=== PATIENT | female | born 1945 | race Caucasian/White ===

== ENCOUNTER → 2016-11-12 | Outpatient (CLI) | payer MEDICARE ==
--- NOTE | 2016-11-12 10:16 | XR ---
EXAMINATION TYPE: XR KUB DATE OF EXAM: 11/12/2016 9:54 AM CLINICAL HISTORY: Right-sided renal calculi. TECHNIQUE: 2 supine KUB images of the abdomen are obtained COMPARISON: Abdominal x-ray and CT abdomen and pelvis July 22, 2014 . FINDINGS: There is 8 mm oval calculus lower pole level right kidney slightly larger versus prior kaleigh dy. There are 4-6 additional small calculi scattered throughout the right kidney new from prior exam measuring up to 4 mm in size. There is no definite left-sided nephrolithiasis. There is overall nonobstructive bowel gas pattern. There is new extensive surgical change in the lowe r lumbar spine with posterior fusion hardware and metallic disc material. There is partially sacraliz ed right L5 segment with sclerosis at abnormal articulation with S1. Vascular calcification and phleb oliths are seen in the pelvis. IMPRESSION: Worsening right-sided nephrolithiasis.
== END | disposition home or self-care (01) ==
LOC: RADXRMAIN 09:31
PROVIDERS: ATTEND Urology
DX: N20.0 Calculus of kidney (principal)
CPT/HCPCS: 74000

== ENCOUNTER → 2017-11-07 | Outpatient (CLI) | payer MEDICARE ==
[2017-11-07 12:02] LABS: Basophils # (A) 0.1 k/uL (0-0.2); Basophils % (A) 1 %; Eosinophils # (A) 0.2 k/uL (0-0.7); Eosinophils % (A) 3 %; HCT 39.3 % (34.0-46.0); Lymphocytes # (A) 1.6 k/uL (1.0-4.8); Lymphocytes % (A) 18 %; MCH 30.4 pg (25.0-35.0); MCHC 33.1 g/dL (31.0-37.0); MCV 91.8 fL (80.0-100.0); Mean Platelet Volume 7.7; Monocytes # (A) 0.5 k/uL (0-1.0); Monocytes % (A) 6 %; Neutrophils % (A) 70 %; Platelet Count 171 k/uL (150-450); RBC 4.28 m/uL (3.80-5.40); RDW 14.6 % (11.5-15.5); WBC 8.5 k/uL (3.8-10.6)
[2017-11-07 12:22] LABS: Albumin 4.2 g/dL (3.5-5.0); Calcium 9.8 mg/dL (8.4-10.2); Potassium 4.6 mmol/L (3.5-5.1); Total Bilirubin 0.4 mg/dL (0.2-1.3); Total Protein 7.5 g/dL (6.3-8.2)
[2017-11-07 12:32] LABS: T4, Free (Free Thyroxine) 0.75 ng/dL (0.78-2.19)
[2017-11-08 00:29] LABS: Hemoglobin A1C 5.9 % (4.0-6.0)
== END | disposition home or self-care (01) ==
LOC: LABWHC1 11:42
PROVIDERS: ATTEND Internal Medicine Critical Care Medicine
DX: I10 Essential (primary) hypertension (principal); J44.9 Chronic obstructive pulmonary disease, unspecified; F32.9 Major depressive disorder, single episode, unspecified; E78.5 Hyperlipidemia, unspecified
CPT/HCPCS: 36415; 80053; 80061; 82306; 83036; 84439; 84443; 85025

== ENCOUNTER → 2018-05-16 | Outpatient (CLI) | payer MEDICARE | END | disposition home or self-care (01) | LOC: LABWHC1 12:26 | PROVIDERS: ATTEND Orthopaedic Surgery Orthopaedic Surgery of the Spine | DX: N28.9 Disorder of kidney and ureter, unspecified (principal) | CPT/HCPCS: 36415; 82565; 84520 ==

== ENCOUNTER → 2018-10-24 | Outpatient (CLI) | payer MEDICARE ==
[2018-10-24 13:23] LABS: Basophils # (A) 0.1 k/uL (0-0.2); Basophils % (A) 1 %; Eosinophils # (A) 0.3 k/uL (0-0.7); Eosinophils % (A) 3 %; HCT 42.1 % (34.0-46.0); HGB 13.3 gm/dL (11.4-16.0); Lymphocytes # (A) 0.8 k/uL (1.0-4.8); Lymphocytes % (A) 11 %; MCH 29.5 pg (25.0-35.0); MCHC 31.5 g/dL (31.0-37.0); MCV 93.7 fL (80.0-100.0); Mean Platelet Volume 6.6; Monocytes # (A) 0.4 k/uL (0-1.0); Monocytes % (A) 5 %; Neutrophils # (A) 5.9 k/uL (1.3-7.7); Neutrophils % (A) 78 %; Platelet Count 157 k/uL (150-450); RBC 4.49 m/uL (3.80-5.40); RDW 14.4 % (11.5-15.5); WBC 7.5 k/uL (3.8-10.6)
[2018-10-24 19:40] LABS: Iron Saturation 20.54 (12.00-45.00)
[2018-10-24 19:46] LABS: Albumin 4.1 g/dL (3.80-4.90); Albumin/Globulin Ratio 1.58 (1.60-3.17); Anion Gap 6.6 mmol/L (4.00-12.00); Calcium 9.5 mg/dL (8.7-10.3); Carbon Dioxide 30.4 mmol/L (21.6-31.8); Globulin 2.6 g/dL (1.6-3.3); LDL Cholesterol,Calculated 163.4 mg/dL (0.0-131.0); Potassium 4.4 mmol/L (3.5-5.5); Total Bilirubin 0.5 mg/dL (0.2-1.2); Total Protein 6.7 g/dL (6.2-8.2); VLDL Calculation 67.6 mg/dL (5.00-40.00)
[2018-10-24 19:49] LABS: Folate, Serum 6.8 ng/mL; Vitamin D 25 Hydroxy 28.2 ng/mL (30.0-100.0)
== END ==
LOC: LABWHC1 12:24
PROVIDERS: ATTEND Nurse Practitioner Adult Health
DX: I10 Essential (primary) hypertension (principal); J44.9 Chronic obstructive pulmonary disease, unspecified; K21.9 Gastro-esophageal reflux disease without esophagitis; M10.00 Idiopathic gout, unspecified site; G99.0 Autonomic neuropathy in diseases classified elsewhere; E78.5 Hyperlipidemia, unspecified; R10.11 Right upper quadrant pain; R11.0 Nausea
CPT/HCPCS: 36415; 80053; 80061; 82150; 82306; 82607; 82746; 83540; 83550; 83690; 84443; 85025

== ENCOUNTER → 2018-10-24 | Outpatient (CLI) | payer MEDICARE ==
--- NOTE | 2018-10-24 17:30 | US ---
EXAMINATION TYPE: US abdomen complete DATE OF EXAM: 10/24/2018 COMPARISON: CT 07/22/2014 CLINICAL HISTORY: R10.11 Right upper quadrant pain, R11 nausea. Difficult and limited exam due to pat ient body habitus and overlying bowel gas EXAM MEASUREMENTS: Liver Length: 17.4 cm Gallbladder Wall: 0.2 cm CBD: 0.4 cm Spleen: 15.4 cm Right Kidney: 9.0 x 4.7 x 5.1 cm Left Kidney: 12.5 x 5.2 x 4.3 cm Pancreas: Obscured by overlying bowel gas Liver: Coarse, heterogeneous echotexture. Enlarged Gallbladder: Stone visualized measuring 1.4 cm Evidence for sonographic Blake's sign: No CBD: wnl as visualized Spleen: Enlarged Right Kidney: Measuring smaller than left, cortex appears thin. Echogenic foci visualized measuring 0.8 cm, cystic area visualized lower pole measuring 5.0 x 4.7 x 4.2 cm Left Kidney: No hydronephrosis. Nodular contour, multiple tiny cystic areas visualized, largest masoud uring 0.8 x 0.9 x 1.3 cm Upper IVC: wnl as visualized Abd Aorta: Atherosclerotic changes visualized IMPRESSION: 1. Mild fatty infiltration of liver. 2. Hepatomegaly. 3. Cholelithiasis. 4. Thinning of the right renal cortex compatible some atrophy. 5. Nonobstructing inferior pole right renal stones. 6. Right renal cyst. Tiny left renal cysts are also present.
== END ==
LOC: RADUSWWP 12:20
PROVIDERS: ATTEND Internal Medicine
DX: K76.0 Fatty (change of) liver, not elsewhere classified (principal); R16.0 Hepatomegaly, not elsewhere classified; K80.20 Calculus of gallbladder without cholecystitis without obstruction; N20.0 Calculus of kidney; N28.1 Cyst of kidney, acquired
CPT/HCPCS: 76700

== ENCOUNTER → 2018-11-21 | Day surgery (SDC) | payer MEDICARE ==
[2018-11-17 16:10] VITALS: BMI 39.4
[~2018-11-21] MED LIST: BUPIVACAINE-EPI 0.5%-1:200,000 10 ML VIAL SQ ONE; DEXAMETHASONE SOD PHOS (MDV) 100 MG/10 ML VIAL IVP ONE; DEXAMETHASONE SOD PHOSPHATE 10 MG/ML 1 ML VIAL IV ONE; GLYCOPYRROLATE 0.2 MG/ML 2 ML VIAL ONE; HEPARIN SODIUM,PORCINE 5,000 UNIT/ML 1 ML VIAL SQ ONE; HYDROcodone/APAP 7.5-325MG 1 EACH TAB PO ONE; HYDROmorphone 0.5 MG/0.5 ML SYRINGE IVP PRN; LACTATED RINGERS 1,000 ML IV ONE; LACTATED RINGERS 1,000 ML IV SCH; LIDOCAINE 1% 20 ML VIAL (10MG/ML) FOR IV START INTRADERMA PRN; LIDOCAINE 1% INJ 10MG/ML (20 ML MDV) ONE; MIDAZOLAM 2 MG/2 ML VIAL ONE; NEOSTIGMINE 1 MG/ML 10 ML VIAL ONE; ONDANSETRON 4 MG/2 ML VIAL IVP ONE; PHENYLEPHRINE-0.9% NACL SYG 1 MG/10 ML SYRINGE ONE; PROPOFOL 10 MG/ML 20 ML VIAL IV ONE; ROCURONIUM BROMIDE 10 MG/ML 10 ML VIAL IV ONE; SUCCINYLCHOLINE CHLORIDE 100 MG/5 ML SYR IV ONE; ceFAZolin IN SWFI 2 GM/20 ML SYRINGE IVP ONE; fentaNYL (PF) 50 MCG/ML 2 ML AMP ONE
--- NOTE | 2018-11-21 08:19 | P.GSHP ---
History of Present Illness H&P Date: 11/21/18 Chief Complaint: Right upper quadrant pain This a 73-year-old female who had complaints of right quadrant pain. Her recent ultrasound shows evidence of cholelithiasis. She presents today for laparoscopic cholecystectomy. Past Medical History Past Medical History: Asthma, COPD, GERD/Reflux, Hyperlipidemia, Hypertension, Osteoarthritis (OA) Additional Past Medical History / Comment(s): hx of kidney stone, GOUT, BRONCHITIS, KIDNEY STONES History of Any Multi-Drug Resistant Organisms: None Reported Past Surgical History: Appendectomy, Back Surgery, Section, Orthopedic Surgery Additional Past Surgical History / Comment(s): LITHOTRIPSY, LEFT ANKLE PLATE SCREW, , EPIDURAL PAIN SHOTS, 6-8-16 laminectomy, CATARACT -BILATERAL WITH LENS IMPLANT, LASER TREATMENT OF EYE Past Anesthesia/Blood Transfusion Reactions: Motion Sickness, Postoperative Nausea & Vomiting (PONV) Smoking Status: Former smoker - Past Family History Mother Family Medical History: Myocardial Infarction ([place]) Father Family Medical History: CVA/TIA Sister(s) Additional Family Medical History / Comment(s): "ARTERIES DISSECTED" Medications and Allergies Home Medications Medication Instructions Recorded Confirmed Type Albuterol Inhaler [Ventolin 1 - 2 puff INHALATION RT-Q6H PRN 07/22/14 11/17/18 History Inhaler] Allopurinol [Zyloprim] 100 mg PO DAILY 07/22/14 11/17/18 History Aspirin 81 mg PO DAILY 07/22/14 11/17/18 History Hydrochlorothiazide [Hydrodiuril] 12.5 mg PO DAILY 07/22/14 11/17/18 History Lisinopril [Prinivil] 10 mg PO HS 07/22/14 11/17/18 History Montelukast [Singulair] 10 mg PO HS 07/22/14 11/17/18 History Ranitidine HCl [Zantac] 150 mg PO HS 07/22/14 11/17/18 History Sertraline [Zoloft] 50 mg PO DAILY 07/22/14 11/17/18 History Albuterol Nebulized [Ventolin 2.5 mg INHALATION RT-Q6H PRN 01/19/16 11/17/18 History Nebulized] Atenolol [Tenormin] 50 mg PO QAM 01/19/16 11/17/18 History Allergies Allergy/AdvReac Type Severity Reaction Status Date / Time Sulfa (Sulfonamide Allergy Rash/Hives Verified 11/17/18 15:35 Antibiotics) Surgical - Exam Vital Signs Temp Pulse Resp BP Pulse Ox 97.6 F 77 18 106/66 97 11/21/18 07:10 11/21/18 07:10 11/21/18 07:10 11/21/18 07:10 11/21/18 07:10 - General well developed, well nourished, no distress - Eyes PERRL - ENT normal pinna - Neck no masses - Respiratory normal expansion - Cardiovascular Rhythm: regular - Abdomen Abdomen: soft, non tender Assessment and Plan Assessment: Right quadrant pain Cholelithiasis We'll perform laparoscopic cholecystectomy.
[2018-11-21 09:18] VITALS: TEMP 96.8
--- NOTE | 2018-11-21 09:29 | P.OP ---
Date of Procedure: 11/21/18 Preoperative Diagnosis: Cholecystitis Cholelithiasis Postoperative Diagnosis: Cholecystitis Cholelithiasis Procedure(s) Performed: Laparoscopic cholecystectomy Anesthesia: KOLBY Surgeon: Marcos Lr Estimated Blood Loss (ml): 5 Pathology: other (Gallbladder) Condition: stable Disposition: PACU Description of Procedure: The patient was placed on the operating table. The patient received a general endotracheal tube anesthesia. The patients abdomen was prepped and draped in the usual sterile fashion. Through an infraumbilical stab incision, the fascia of the anterior abdominal wall was grasped with a pair of Kochers and then the Veress needle was placed in the peritoneal cavity. Position of the Veress needle was confirmed with positive drop test. The abdomen was then insufflated. After adequate insufflation, the 10 mm trocar was placed in the peritoneal cavity. Following this the laparoscope was placed in the peritoneal cavity. The patient was placed in the head-up, right side up position and then a 5 mm trocar was placed in the right lateral and right subcostal position under direct visualization. A 8 mm trocar was placed in the epigastric position. The gallbladder was grasped in the fundus and infundibulum. Traction on the gallbladder was placed in the lateral and the cephalad positions. The triangle of Calot was visualized.. The cystic duct was bluntly dissected until the union of the cystic duct and common bile duct wa s seen. The cystic duct was then divided and sealed with the Harmonic scissors. A PDS Endoloop was then placed throughout the cystic duct stump. The cystic artery divided and sealed with the Harmonic scissors. The gallbladder was then removed from the liver bed using Harmonic scissors. The gallbladder was then extracted through the epigastric port site. Operative field was checked for any bleeding spots and Harmonic scissors was used to coagulate the liver bed. The abdomen was irrigated. The trocars were removed. The skin was closed using interrupted 3-0 Vicryl suture. Dermabond dressing were applied. The patient tolerated the procedure well.
[2018-11-21 10:01] VITALS: RESP 16
[2018-11-21 10:08] VITALS: BP 106/68; PULSE 83
== END | disposition home or self-care (01) ==
LOC: OR 06:28
PROVIDERS: ATTEND Surgery
DX: K80.10 Calculus of gallbladder with chronic cholecystitis without obstruction (principal); I10 Essential (primary) hypertension; E78.5 Hyperlipidemia, unspecified; J45.909 Unspecified asthma, uncomplicated; F17.200 Nicotine dependence, unspecified, uncomplicated; M19.90 Unspecified osteoarthritis, unspecified site; K21.9 Gastro-esophageal reflux disease without esophagitis; M10.9 Gout, unspecified; Z87.442 Personal history of urinary calculi; F32.9 Major depressive disorder, single episode, unspecified; Z79.82 Long term (current) use of aspirin; Z79.899 Other long term (current) drug therapy; Z88.2 Allergy status to sulfonamides
CPT/HCPCS: 88304; 47562; J2250; J1644; J2710; J2405; J2001; J3010; J1100; J2370; J0330; J2704; J0690

== ENCOUNTER 2019-02-16 11:23 | Observation (INO) | payer MEDICARE ==
[~2019-02-16 11:23] MED LIST changes: +ATROPINE SULFATE 0.1 MG/ML 10ML SYRINGE ONE; -BUPIVACAINE-EPI 0.5%-1:200,000 10 ML VIAL SQ ONE; -DEXAMETHASONE SOD PHOS (MDV) 100 MG/10 ML VIAL IVP ONE; -DEXAMETHASONE SOD PHOSPHATE 10 MG/ML 1 ML VIAL IV ONE; -GLYCOPYRROLATE 0.2 MG/ML 2 ML VIAL ONE; -HEPARIN SODIUM,PORCINE 5,000 UNIT/ML 1 ML VIAL SQ ONE; -HYDROcodone/APAP 7.5-325MG 1 EACH TAB PO ONE; -HYDROmorphone 0.5 MG/0.5 ML SYRINGE IVP PRN; -LACTATED RINGERS 1,000 ML IV ONE; -LACTATED RINGERS 1,000 ML IV SCH; -LIDOCAINE 1% 20 ML VIAL (10MG/ML) FOR IV START INTRADERMA PRN; -LIDOCAINE 1% INJ 10MG/ML (20 ML MDV) ONE; +METOPROLOL TARTRATE 5 MG/5 ML VIAL IVP ONE; -MIDAZOLAM 2 MG/2 ML VIAL ONE; -NEOSTIGMINE 1 MG/ML 10 ML VIAL ONE; -ONDANSETRON 4 MG/2 ML VIAL IVP ONE; -PHENYLEPHRINE-0.9% NACL SYG 1 MG/10 ML SYRINGE ONE; -PROPOFOL 10 MG/ML 20 ML VIAL IV ONE; -ROCURONIUM BROMIDE 10 MG/ML 10 ML VIAL IV ONE; -SUCCINYLCHOLINE CHLORIDE 100 MG/5 ML SYR IV ONE; -ceFAZolin IN SWFI 2 GM/20 ML SYRINGE IVP ONE; -fentaNYL (PF) 50 MCG/ML 2 ML AMP ONE
--- NOTE | 2019-02-16 11:51 | ED ---
Chest Pain HPI - General Chief Complaint: Chest Pain Stated Complaint: CHEST PAIN, SENT BY DR Time Seen by Provider: 02/16/19 11:29 Source: patient, RN notes reviewed, old records reviewed Mode of arrival: wheelchair Limitations: no limitations - History of Present Illness Initial Comments: This is a 73-year-old female the ER for evaluation. Patient comes in for evaluation chest pain history of high blood pressure high cholesterol and COPD asthma. Patient has no recent cardiac evaluation. No recent travel history or sick contacts. No history of PE or DVT. No fevers cough or congestion MD Complaint: chest pain -: week(s) Pain Location: substernal, left chest Pain Radiation: none Severity: mild Severity scale (1-10): 2 Quality: aching Consistency: constant, intermittent Improves With: nothing Worsens With: nothing Anginal Symptoms: dyspnea Treatments Prior to Arrival: none - Related Data Home Medications Medication Instructions Recorded Confirmed Allopurinol [Zyloprim] 100 mg PO DAILY 07/22/14 02/16/19 Hydrochlorothiazide [Hydrodiuril] 12.5 mg PO DAILY 07/22/14 02/16/19 Lisinopril [Prinivil] 10 mg PO HS 07/22/14 02/16/19 Montelukast [Singulair] 10 mg PO HS 07/22/14 02/16/19 Ranitidine HCl [Zantac] 150 mg PO BID 07/22/14 02/16/19 Sertraline [Zoloft] 50 mg PO DAILY 07/22/14 02/16/19 Atenolol [Tenormin] 25 mg PO DAILY 02/16/19 02/16/19 Cholecalciferol [Vitamin D3 (25 1,000 unit PO DAILY 02/16/19 02/16/19 Mcg = 1000 Iu)] Gabapentin [Neurontin] 300 mg PO BID 02/16/19 02/16/19 Omeprazole 20 mg PO QAM 02/16/19 02/16/19 Allergies Allergy/AdvReac Type Severity Reaction Status Date / Time Sulfa (Sulfonamide Allergy Rash/Hives Verified 02/16/19 11:45 Antibiotics) Review of Systems ROS Statement: Those systems with pertinent positive or pertinent negative responses have been documented in the HPI. ROS Other: All systems not noted in ROS Statement are negative. EKG Findings - EKG Comments: EKG Findings:: EKG shows sinus rhythm rate of 64, SC 196, QRS 74, QTc 462 Past Medical History Past Medical History: Asthma, COPD, GERD/Reflux, Hyperlipidemia, Hypertension, Osteoarthritis (OA) Additional Past Medical History / Comment(s): hx of kidney stone, GOUT, BRONCHITIS, KIDNEY STONES History of Any Multi-Drug Resistant Organisms: None Reported Past Surgical History: Appendectomy, Back Surgery, Section, Orthopedic Surgery Additional Past Surgical History / Comment(s): LITHOTRIPSY, LEFT ANKLE PLATE SCREW, , EPIDURAL PAIN SHOTS, 6-8-16 laminectomy, CATARACT -BILATERAL WITH LENS IMPLANT, LASER TREATMENT OF EYE Past Anesthesia/Blood Transfusion Reactions: Motion Sickness, Postoperative Nausea & Vomiting (PONV) Past Psychological History: Depression Smoking Status: Former smoker - Past Family History Mother Family Medical History: Myocardial Infarction ([place]) Father Family Medical History: CVA/TIA Sister(s) Additional Family Medical History / Comment(s): "ARTERIES DISSECTED" General Exam Limitations: no limitations General appearance: alert, in no apparent distress Head exam: Present: atraumatic, normocephalic, normal inspection Eye exam: Present: normal appearance, PERRL, EOMI. Absent: scleral icterus, conjunctival injection, periorbital swelling ENT exam: Present: normal exam, mucous membranes moist Neck exam: Present: normal inspection. Absent: tenderness, meningismus, lym phadenopathy Respiratory exam: Present: normal lung sounds bilaterally. Absent: respiratory distress, wheezes, rales, rhonchi, stridor Cardiovascular Exam: Present: regular rate, normal rhythm, normal heart sounds. Absent: systolic murmur, diastolic murmur, rubs, gallop, clicks GI/Abdominal exam: Present: soft, normal bowel sounds. Absent: distended, tenderness, guarding, rebound, rigid Extremities exam: Present: normal inspection, full ROM, normal capillary refill. Absent: tenderness, pedal edema, joint swelling, calf tenderness Back exam: Present: normal inspection Neurological exam: Present: alert, oriented X3, CN II-XII intact Psychiatric exam: Present: normal affect, normal mood Skin exam: Present: warm, dry, intact, normal color. Absent: rash Course Vital Signs 02/16/19 02/16/19 02/16/19 11:26 11:41 12:00 Temperature 98.2 F Pulse Rate 64 61 Respiratory 16 18 18 Rate Blood Pressure 119/66 118/78 O2 Sat by Pulse 98 94 L 94 L Oximetry 02/16/19 02/16/19 12:30 13:00 Temperature Pulse Rate 55 L Respiratory 18 15 Rate Blood Pressure 116/73 118/70 O2 Sat by Pulse 92 L 95 Oximetry - Reevaluation(s) Reevaluation #1: 02/16/19 13:48 Medical record is reviewed Reevaluation #2: 02/16/19 13:48 Patient's chest pain remains persistent Chest Pain MDM - MDM 73 female the ER for evaluation comes in with chest pain today. We do patient started on heparin will admit for chest cardiac observation, she did have VQ scan secondary to elevated d-dimer. Patient will be admitted for cardiology observation Critical Care Time Critical Care Time: Yes Total Critical Care Time: 31 Disposition Clinical Impression: Atypical chest pain, Chest pain Disposition: ADMITTED IP TO THIS HOSP Condition: Fair Is patient prescribed a controlled substance at d/c from ED?: No Referrals: Veronica Jason MD [Primary Care Provider] - 1-2 days
[2019-02-16 11:55] LABS: Basophils # (A) 0.1 k/uL (0-0.2); Basophils % (A) 2 %; Eosinophils # (A) 0.5 k/uL (0-0.7); Eosinophils % (A) 6 %; HCT 41.6 % (34.0-46.0); HGB 13.6 gm/dL (11.4-16.0); Lymphocytes # (A) 1.1 k/uL (1.0-4.8); Lymphocytes % (A) 12 %; MCH 29.4 pg (25.0-35.0); MCHC 32.7 g/dL (31.0-37.0); Mean Platelet Volume 7.7; Monocytes # (A) 0.6 k/uL (0-1.0); Monocytes % (A) 6 %; Neutrophils # (A) 6.6 k/uL (1.3-7.7); Neutrophils % (A) 73 %; Platelet Count 199 k/uL (150-450); RBC 4.62 m/uL (3.80-5.40); RDW 15.4 % (11.5-15.5)
--- NOTE | 2019-02-16 12:04 | XR ---
EXAMINATION TYPE: XR chest 2V DATE OF EXAM: 02/16/2019 COMPARISON: 02/03/2016 HISTORY: Chest pain TECHNIQUE: Frontal and lateral views of the chest are obtained. FINDINGS: There is no focal air space opacity, pleural effusion, or pneumothorax seen. The cardiac silhouette size is upper limits of normal. The osseous structures are intact. Mild multilevel degen erative changes of the spine are seen. IMPRESSION: No acute cardiopulmonary process.
[2019-02-16 12:10] LABS: Albumin 4.3 g/dL (3.5-5.0); Calcium 9.8 mg/dL (8.4-10.2); Potassium 4.7 mmol/L (3.5-5.1); Total Bilirubin 0.5 mg/dL (0.2-1.3); Total Protein 7.6 g/dL (6.3-8.2)
[2019-02-16 12:11] LABS: INR 0.9 (<1.2); Partial Thromboplastin Time 24.1 sec (22.0-30.0); Prothrombin Time 9.5 sec (9.0-12.0)
[2019-02-16 12:19] LABS: D-Dimer 0.98 mg/L FEU (<0.60)
[2019-02-16] MEDS ORDERED: HEPARIN SODIUM,PORCINE 5,000 UNIT/ML 1 ML VIAL IV PRN (13:44)
[2019-02-16] MEDS ORDERED: HEPARIN SODIUM,PORCINE 5,000 UNIT/ML 1 ML VIAL IV ONE (13:44)
[2019-02-16] MEDS ORDERED: NITROGLYCERIN SL TABS 0.4 MG TAB SUBLINGUAL PRN (13:44)
[2019-02-16] MEDS ORDERED: ASPIRIN 81 MG PO STA (13:44)
[2019-02-16] MEDS ORDERED: HEPARIN SOD,PORK IN 0.45% NACL 25,000 UNIT in 0.45% NACL 1 250ML.BAG IV SCH (13:45)
[2019-02-16] MEDS: SODIUM CHLORIDE 0.9% 1,000 ML IV SCH ×2 (14:31→20:32)
--- NOTE | 2019-02-16 14:32 | NM ---
EXAMINATION TYPE: NM pul vent and perfuse DATE OF EXAM: 02/16/2019 COMPARISON: Chest x-ray of 02/16/2019 HISTORY: Chest pain TECHNIQUE: Utilizing inhalation of 41 mCi Tc 99m DTPA aerosol and intravenous injection of 5.1 mCi o f Tc 99m MAA, ventilation and perfusion images are acquired post injection in multiple projections. FINDINGS: Slight right hemidiaphragm is seen on the chest x-ray corresponding to right diaphragm elevation the current examination. The heart appears mildly enlarged on this examination. Nonsegmental ventilation defects are seen within the peripheral right upper lobe and right lower lobe in addition to the left lung apex. Normal radiotracer distribution is noted in the remainder of the lungs. There is no eviden ce of mismatched defects. IMPRESSION: Low probability for pulmonary embolus. Nonsegmental ventilation defects suggests underlying airway di sease.
[2019-02-16 14:49] VITALS: BMI 37.2
[2019-02-16] MEDS: GABAPENTIN 300 MG CAP PO SCH (20:31)
[2019-02-16] MEDS: FAMOTIDINE 20 MG TAB PO SCH (20:31)
[2019-02-16] MEDS: METOPROLOL TARTRATE 25 MG TAB PO SCH (20:31)
[2019-02-16] MEDS ORDERED: MONTELUKAST 10 MG TAB PO SCH (21:00)
[2019-02-16] MEDS ORDERED: LISINOPRIL 10 MG TAB PO SCH (21:00)
[2019-02-17 04:26] LABS: Mean Platelet Volume 6.8; Platelet Count 136 k/uL (150-450)
[2019-02-17 04:47] LABS: Cholesterol 212 mg/dL (<200); HDL Cholesterol 27 mg/dL (40-60); LDL Cholesterol,Calculated 127 mg/dL (0-99); Triglycerides 289 mg/dL (<150)
[2019-02-17] MEDS ORDERED: PANTOPRAZOLE 40 MG TABLET PO SCH (07:30)
[2019-02-17] MEDS ORDERED: ASPIRIN 325 MG TAB PO SCH (09:00)
[2019-02-17] MEDS ORDERED: SERTRALINE 50 MG TAB PO SCH (09:00)
[2019-02-17] MEDS ORDERED: EZETIMIBE 10 MG TAB PO SCH (09:00)
[2019-02-17] MEDS ORDERED: ALLOPURINOL 100 MG TAB PO SCH (09:00)
[2019-02-17] MEDS ORDERED: CHOLECALCIFEROL 1,000 UNIT TAB PO SCH (09:00)
[2019-02-17] MEDS ORDERED: HYDROCHLOROTHIAZIDE 12.5 MG CAP PO SCH (09:00)
[2019-02-17] MEDS ORDERED: DOBUTamine DRIP for NUC MED 500 MG in DEXTROSE/WATER 1 250ML.BAG IV ONE (09:48)
--- NOTE | 2019-02-17 10:11 | P.CRDCN ---
History of Present Illness History of present illness: This is a pleasant 73-year-old female past medical history significant for hypertension, dyslipidemia, COPD, gastroesophageal reflux disease, chronic back pain, asthma, chronic kidney disease, kidney stones, former nicotine dependence and daily marijuana use. She denies history of coronary artery disease and does not follow with a lift builder whole for any reason. We have been asked to see her in consultation secondary to chest discomfort. She states for the previous 2 weeks she has noticed a discomfort in the left precordial and left shoulder region. This is described as a achy sensation that lasts for less than 1 minute with no specific aggravating or alleviating factor. Happens approximately 10 times a day and is always at rest. It is not associated with deep inspiration, cough or movement of her arm and torso. There is no radiation to the arm, back, neck or jaw. She denies any associated shortness of breath, dizziness, nausea, vomiting, palpitations or diaphoresis. She states in August she did suffer a fall landing on left side of her body and has been struggling with left arm and left hip discomfort since that time. EKG on arrival reveals sinus mechanism with no acute ST or T wave abnormalities noted. Chest x-ray is negative for an acute cardiopulmonary process. VQ scan shows low probability for PE with nonsegmental ventilation defects suggesting underlying airway disease. Laboratory data reviewed, cardiac enzymes negative 3, LDL 127, HDL 27, tr iglycerides 289 and total cholesterol 212, WBC 9.0, hemoglobin 13.6, platelets 136, d-dimer 0.98, sodium 141, potassium 4.7, creatinine 1.6 with a GFR of 32, magnesium 2.0, proBNP 151. Current cardiac medications include atenolol 25 mg daily, hydrochlorothiazide 12.5 mg daily and lisinopril 10 mg daily. She states she has tried multiple different types of statins in the past now cause significant muscle aches. At the time of my exam: CONSTITUTIONAL: Denies fever. Denies chills. EYES: Denies blurred vision. Denies vision changes. Denies eye pain. EARS, NOSE, MOUTH & THROAT: Denies headache. Denies sore throat. Denies ear pain. CARDIOVASCULAR: Denies chest pain. Denies shortness of breath. Denies orthopnea. Denies PND. Denies palpitations. RESPIRATORY: Denies cough. GASTROINTESTINAL: Denies abdominal pain. Denies diarrhea. Denies constipation. Denies nausea. Denies vomiting. MUSCULOSKELETAL: Denies myalgias. INTEGUMENTARY: Denies pruitis. Denies rash. NEUROLOGIC: Denies numbness. Denies tingling. Denies weakness. PSYCHIATRIC: Denies anxiety. Denies depression. ENDOCRINE: Denies fatigue. Denies weight change. Denies polydipsia. Denies polyurina. GENITOURINARY: Denies burning, hematuria or urgency with micturation. HEMATOLOGIC: Denies history of anemia. Denies bleeding. Blood pressure 145/78 heart rate 65 afebrile maintaining oxygen saturation on room air GENERAL: This is a 73-year-old female in no apparent distress at the time of my examination. HEENT: Head is atraumatic, normocephalic. Pupils are equal, round. Sclerae anicteric. Conjunctivae are clear. Mucous membranes of the mouth are moist. Neck is supple. There is no jugular venous distention. No carotid bruit is heard. LUNGS: Clear to auscultation no wheezes, rales or rhonchi. No chest wall tenderness is noted on palpation or with deep breathing. HEART: Regular rate and rhythm without murmurs, rubs or gallops. S1 and S2 heard. ABDOMEN: Soft, nontender. Bowel sounds are heard. No organomegaly noted. EXTREMITIES: No evidence of peripheral edema and no calf tenderness noted. VASCULAR: Radial and dorsalis pedis pulses palpated, no evidence of clubbing. NEUROLOGIC: Patient is awake, alert and oriented x3. ASSESSMENT Chest pain, atypical for angina. An acute coronary event has been ruled out. Hypertension Dyslipidemia, uncontrolled. Intolerant to statins. Hypertriglyceridemia COPD Chronic kidney disease Former nicotine dependence Daily marijuana use Chronic back pain Obesity, BMI 37 PLAN An acute coronary event has been ruled out. Discontinue heparin infusion. Obtain 2-D echocardiogram and Doppler study to assess cardiac structure and function. Perform dobutamine stress echocardiogram to assess for stress induced ischemia. Initiate on zetia 10 mg daily and fenofibrate 54 mg for cholesterol control. If stress test and echo are normal she is stable for discharge from a cardiac pe rspective. Follow up with Dr. Greenberg in the office in 2 weeks. Nurse Practitioner note has been reviewed, I agree with a documented findings and plan of care. Patient was seen and examined. Past Medical History Past Medical History: Asthma, COPD, GERD/Reflux, Hyperlipidemia, Hypertension, Osteoarthritis (OA) Additional Past Medical History / Comment(s): Kidney stones and currently has some in r kidney, bronchitis, gout bilateral feet, "alittle arthritis here and there." History of Any Multi-Drug Resistant Organisms: None Reported Past Surgical History: Appendectomy, Back Surgery, Section, Cholecystectomy, Orthopedic Surgery Additional Past Surgical History / Comment(s): L/R LITHOTRIPSIES, LEFT ANKLE PLATE SCREW, LUMBAR EPIDURAL PAIN INJECTIONS, 6-8-16 laminectomy, CATARACT - BILATERAL WITH LENS IMPLANT, LASER TREATMENT OF R EYE D/T "FILM" Past Anesthesia/Blood Transfusion Reactions: Motion Sickness, Postoperative Nausea & Vomiting (PONV) Past Psychological History: Depression Additional Psychological History / Comment(s): Pt resides with her spouse. She is independent. Smoking Status: Former smoker Past Alcohol Use History: Rare Additional Past Alcohol Use History / Comment(s): STARTED SMOKING AT AGE 20 QUIT SMOKING 2006, SMOKED 1 PPD Past Drug Use History: Marijuana Additional Drug Use History / Comment(s): DAILY USE OF MARIJUANA - 1 joint a day for pain control - Past Family History Mother Family Medical History: Myocardial Infarction ([place]) Additional Family Medical History / Comment(s): Mother of a [place] at the age of 75yrs. Father Family Medical History: CVA/TIA Additional Family Medical History / Comment(s): Father of a CVA at the age of 82 yrs. Sister(s) Family Medical History: Vascular Disorder Additional Family Medical History / Comment(s): Sister from an aortic dissection at the age of 56yrs. Medications and Allergies Home Medications Medication Instructions Recorded Confirmed Type Allopurinol [Zyloprim] 100 mg PO DAILY 07/22/14 02/16/19 History Hydrochlorothiazide [Hydrodiuril] 12.5 mg PO DAILY 07/22/14 02/16/19 History Lisinopril [Prinivil] 10 mg PO HS 07/22/14 02/16/19 History Montelukast [Singulair] 10 mg PO HS 07/22/14 02/16/19 History Ranitidine HCl [Zantac] 150 mg PO BID 07/22/14 02/16/19 History Sertraline [Zoloft] 50 mg PO DAILY 07/22/14 02/16/19 History Atenolol [Tenormin] 25 mg PO DAILY 02/16/19 02/16/19 History Cholecalciferol [Vitamin D3 (25 1,000 unit PO DAILY 02/16/19 02/16/19 History Mcg = 1000 Iu)] Gabapentin [Neurontin] 300 mg PO BID 02/16/19 02/16/19 History Omeprazole 20 mg PO QAM 02/16/19 02/16/19 History Allergies Allergy/AdvReac Type Severity Reaction Status Date / Time Sulfa (Sulfonamide Allergy Rash/Hives Verified 02/16/19 11:45 Antibiotics) Physical Exam Vitals: Vital Signs Temp Pulse Pulse Resp BP BP Pulse Ox 02/17/19 08:00 97.4 F L 65 18 130/81 98 02/17/19 04:00 98.1 F 65 16 145/78 98 02/16/19 23:45 59 L 18 02/16/19 23:12 98.0 F 59 L 18 124/75 96 02/16/19 20:17 98.1 F 52 L 16 122/67 95 02/16/19 20:00 52 L 16 02/16/19 19:00 56 L 20 109/59 94 L 02/16/19 18:05 67 18 109/59 97 02/16/19 18:00 64 19 123/86 94 L 02/16/19 17:00 60 123/67 95 02/16/19 16:00 59 L 146/72 95 02/16/19 15:30 58 L 13 144/91 93 L 02/16/19 15:00 59 L 7 L 181/96 93 L 02/16/19 13:30 112/71 02/16/19 13:00 55 L 15 118/70 95 02/16/19 12:30 18 116/73 92 L 02/16/19 12:00 18 118/78 94 L 02/16/19 11:41 61 18 94 L 02/16/19 11:26 98.2 F 64 16 119/66 98 Intake and Output 02/16/19 02/17/19 02/17/19 22:59 06:59 14:59 Intake Total 166.833 600 Balance 166.833 600 Intake: Intake, IV Titration 166.833 600 Amount Heparin Sod,Pork in 0.45% 66.833 NaCl 25,000 unit In 0.45 % NaCl 1 250ml.bag @ 10. 16 UNITS/KG/HR 10 mls/hr IV .Q24H VIV Rx#: [id number] Sodium Chloride 0.9% 1, 100 600 000 ml @ 100 mls/hr IV . Q10H VIV Rx#:[id number] Other: # Voids 1 Results 02/17/19 04:01 02/16/19 11:38 Cardiac Enzymes 02/16/19 02/16/19 02/16/19 Range/Units 11:38 11:38 17:18 AST 22 (14-36) U/L Troponin I <0.012 <0.012 (0.000-0.034) ng/mL 02/16/19 Range/Units 23:16 AST (14-36) U/L Troponin I <0.012 (0.000-0.034) ng/mL Coagulation 02/16/19 02/16/19 02/17/19 Range/Units 11:38 20:16 04:01 PT 9.5 (9.0-12.0) sec APTT 24.1 31.2 H 51.4 H (22.0-30.0) sec Lipids 02/17/19 Range/Units 04:01 Triglycerides 289 H (<150) mg/dL Cholesterol 212 H (<200) mg/dL HDL Cholesterol 27 L (40-60) mg/dL CBC 02/16/19 02/17/19 Range/Units 11:38 04:01 WBC 9.0 (3.8-10.6) k/uL RBC 4.62 (3.80-5.40) m/uL Hgb 13.6 (11.4-16.0) gm/dL Hct 41.6 (34.0-46.0) % Plt Count 199 136 L (150-450) k/uL Comprehensive Metabolic Panel 02/16/19 Range/Units 11:38 Sodium 141 (137-145) mmol/L Potassium 4.7 (3.5-5.1) mmol/L Chloride 107 (98-107) mmol/L Carbon Dioxide 23 (22-30) mmol/L BUN 29 H (7-17) mg/dL Creatinine 1.60 H (0.52-1.04) mg/dL Glucose 112 H (74-99) mg/dL Calcium 9.8 (8.4-10.2) mg/dL AST 22 (14-36) U/L ALT 20 (9-52) U/L Alkaline Phosphatase 93 (38-126) U/L Total Protein 7.6 (6.3-8.2) g/dL Albumin 4.3 (3.5-5.0) g/dL Current Medications Generic Name Dose Route Start Last Admin Trade Name Freq PRN Reason Stop Dose Admin Allopurinol 100 mg 02/17/19 09:00 Zyloprim PO DAILY [facility] Aspirin 325 mg 02/17/19 09:00 Aspirin PO DAILY [facility] Cholecalciferol 1,000 unit 02/17/19 09:00 Vitamin D3 (25 Mcg = 1000 Iu) PO DAILY [facility] Famotidine 20 mg 02/16/19 21:00 02/16/19 20:31 Pepcid PO 20 mg BID VIV Administration Gabapentin 300 mg 02/16/19 21:00 02/16/19 20:31 Neurontin PO 300 mg BID VIV Administration Heparin Sodium (Porcine) 0 unit 02/16/19 13:44 02/16/19 21:18 Heparin IV 4,000 unit Q6HR PRN Administration Low PTT Protocol Hydrochlorothiazide 12.5 mg 02/17/19 09:00 Hydrodiuril PO DAILY [facility] Heparin Sodium/Sodium Chloride 250 mls @ 10 mls/hr 02/16/19 13:45 02/16/19 21:15 25,000 unit/ Sodium Chloride IV 13.16 units/kg/hr .Q24H VIV 12.953 mls/hr Titration Protocol 10.16 UNITS/KG/HR Sodium Chloride 1,000 mls @ 100 mls/hr 02/16/19 13:45 02/16/19 20:32 Saline 0.9% IV 100 mls/hr .Q10H VIV Administration Lisinopril 10 mg 02/16/19 21:00 02/16/19 20:31 Zestril PO 10 mg HS VIV Administration Metoprolol Tartrate 25 mg 02/16/19 21:00 02/16/19 20:31 Lopressor PO 25 mg BID VIV Administration Montelukast Sodium 10 mg 02/16/19 21:00 02/16/19 20:31 Singulair PO 10 mg HS VIV Administration Nitroglycerin 0.4 mg 02/16/19 13:44 Nitrostat SUBLINGUAL Q5M PRN Chest Pain Pantoprazole Sodium 40 mg 02/17/19 07:30 02/17/19 02:17 Protonix PO Not Given AC-BRKFST VIV Sertraline HCl 50 mg 02/17/19 09:00 Zoloft PO DAILY VIV Intake and Output 02/16/19 02/17/19 02/17/19 22:59 06:59 14:59 Intake Total 166.833 600 Balance 166.833 600 Intake: Intake, IV Titration 166.833 600 Amount Heparin Sod,Pork in 0.45% 66.833 NaCl 25,000 unit In 0.45 % NaCl 1 250ml.bag @ 10. 16 UNITS/KG/HR 10 mls/hr IV .Q24H VIV Rx#: [id number] Sodium Chloride 0.9% 1, 100 600 000 ml @ 100 mls/hr IV . Q10H VIV Rx#:[id number] Other: # Voids 1 02/17/19 04:01 02/16/19 11:38
[2019-02-17] MEDS ORDERED: FENOFIBRATE 54 MG TAB PO SCH (10:15)
--- NOTE | 2019-02-17 10:30 | P.HPIM ---
History of Present Illness H&P Date: 02/16/19 Chief Complaint: chest pain This is a 73-year-old female one of Dr. Jason with a previous medical history significant for hypertension and hypertensive cardio vascular disease with left ventricular hypertrophy, hyperlipidemia, obesity, chronic low back pain status post laminectomy with the fusion patient has been having left-sided pain for quite sometimes since August and she was hurting on her left side of the body and at the same time she was complaining of some chest pain and left side has no relation to exertion and not associated with any shortness breath not associated with any dizziness or lightheadedness or any palpitation, patient was seen by her PCP and she was advised to go to the hospital for evaluation of possible heart disease. Patient was seen in the ER she had a twelve-lead EKG that showed normal sinus rhythm without any acute ST-T wave changes there is minimal T-wave inversion in V2 that was thought due to dense breast tissue witho ut any reciprocal changes, patient can't enzymes are negative, however because of the presentation was started on IV heparin drip and she was admitted to the hospital for evaluation by cardiology and possible stress testing. Patient stated that she did have a stress test that was done about 4 years ago. Prior to her back surgery and was negative for stress-induced ischemia. Review of Systems Constitutional: Denies anorexia, Denies chills, Denies chronic pain, Denies lethargy, Denies malaise Eyes: denies blurred vision, denies bulging eye, denies decreased vision Ears: deny: decreased hearing Ears, nose, mouth and throat: Denies dental pain, Denies dysphagia, Denies neck lump, Denies swelling in throat, Denies sore throat Cardiovascular: Reports chest pain, Reports decreased exercise tolerance, Reports dyspnea on exertion, Reports shortness of breath, Denies orthopnea, Denies rapid heart beat, Denies syncope Respiratory: Denies congestion, Denies home oxygen, Denies sleep apnea, Denies snoring, Denies wheezing Gastrointestinal: Denies abdominal pain, Denies belching, Denies BRBPR, Denies heartburn, Denies melena, Denies nausea, Denies vomiting Genitourinary: Denies dysuria, Denies nocturia Musculoskeletal: Reports low back pain, Denies gait dysfunction, Denies morning stiffness Musculoskeletal: absent: ankle pain, ankle stiffness, ankle swelling, elbow pain, elbow stiffness, elbow swelling, foot pain, foot stiffness, foot swelling, hand pain, hand stiffness, hand swelling, hip pain, hip stiffness, hip swelling, knee pain, knee stiffness, knee swelling, shoulder pain, shoulder stiffness, shoulder swelling, wrist pain, wrist stiffness, wrist swelling Integumentary: Denies pruritus, Denies rash Neurological: Denies numbness, Denies weakness Psychiatric: Denies anxiety, Denies depression Endocrine: Denies fatigue, Denies weight change Past Medical History Past Medical History: Asthma, COPD, GERD/Reflux, Hyperlipidemia, Hypertension, Osteoarthritis (OA) Additional Past Medical History / Comment(s): Kidney stones and currently has some in r kidney, bronchitis, gout bilateral feet, "alittle arthritis here and there." History of Any Multi-Drug Resistant Organisms: None Reported Past Surgical History: Appendectomy, Back Surgery, Section, Cholecystectomy, Orthopedic Surgery Additional Past Surgical History / Comment(s): L/R LITHOTRIPSIES, LEFT ANKLE KATHY TE SCREW, LUMBAR EPIDURAL PAIN INJECTIONS, 6-8-16 laminectomy, CATARACT - BILATERAL WITH LENS IMPLANT, LASER TREATMENT OF R EYE D/T "FILM" Past Anesthesia/Blood Transfusion Reactions: Motion Sickness, Postoperative Nausea & Vomiting (PONV) Past Psychological History: Depression Additional Psychological History / Comment(s): Pt resides with her spouse. She is independent. Smoking Status: Former smoker Past Alcohol Use History: Rare Additional Past Alcohol Use History / Comment(s): STARTED SMOKING AT AGE 20 QUIT SMOKING 2006, SMOKED 1 PPD Past Drug Use History: Marijuana Additional Drug Use History / Comment(s): DAILY USE OF MARIJUANA - 1 joint a day for pain control - Past Family History Mother Family Medical History: Myocardial Infarction ([place]) Additional Family Medical History / Comment(s): Mother of a [place] at the age of 75yrs. Father Family Medical History: CVA/TIA Additional Family Medical History / Comment(s): Father of a CVA at the age of 82 yrs. Sister(s) Family Medical History: Vascular Disorder Additional Family Medical History / Comment(s): Sister from an aortic dissection at the age of 56yrs. Brother(s) Family Medical History: Cancer (Patient has one brother with colon cancer.) Daughter(s) Family Medical History: No Reported History (Patient has 2 daughters no major medical problems.) Medications and Allergies Home Medications Medication Instructions Recorded Confirmed Type Allopurinol [Zyloprim] 100 mg PO DAILY 07/22/14 02/16/19 History Hydrochlorothiazide [Hydrodiuril] 12.5 mg PO DAILY 07/22/14 02/16/19 History Lisinopril [Prinivil] 10 mg PO HS 07/22/14 02/16/19 History Montelukast [Singulair] 10 mg PO HS 07/22/14 02/16/19 History Ranitidine HCl [Zantac] 150 mg PO BID 07/22/14 02/16/19 History Sertraline [Zoloft] 50 mg PO DAILY 07/22/14 02/16/19 History Atenolol [Tenormin] 25 mg PO DAILY 02/16/19 02/16/19 History Cholecalciferol [Vitamin D3 (25 1,000 unit PO DAILY 02/16/19 02/16/19 History Mcg = 1000 Iu)] Gabapentin [Neurontin] 300 mg PO BID 02/16/19 02/16/19 History Omeprazole 20 mg PO QAM 02/16/19 02/16/19 History Allergies Allergy/AdvReac Type Severity Reaction Status Date / Time Sulfa (Sulfonamide Allergy Rash/Hives Verified 02/16/19 11:45 Antibiotics) Physical Exam Vitals: Vital Signs Temp Pulse Pulse Resp BP BP Pulse Ox 02/16/19 20:17 98.1 F 52 L 16 122/67 95 02/16/19 19:00 56 L 20 109/59 94 L 02/16/19 18:05 67 18 109/59 97 02/16/19 18:00 64 19 123/86 94 L 02/16/19 17:00 60 123/67 95 02/16/19 16:00 59 L 146/72 95 02/16/19 15:30 58 L 13 144/91 93 L 02/16/19 15:00 59 L 7 L 181/96 93 L 02/16/19 13:30 112/71 02/16/19 13:00 55 L 15 118/70 95 02/16/19 12:30 18 116/73 92 L 02/16/19 12:00 18 118/78 94 L 02/16/19 11:41 61 18 94 L 02/16/19 11:26 98.2 F 64 16 119/66 98 Intake and Output 02/16/19 02/16/19 02/16/19 06:59 14:59 22:59 Other: Weight 98.43 kg - Constitutional General appearance: no acute distress, obese - EENT Eyes: anicteric sclerae, EOMI, PERRLA, no ptosis, no scleral icterus, normal appearance ENT: hearing grossly normal, NA/AT, normal oropharynx, no thrush Ears: bilateral: normal - Neck Neck: no lymphadenopathy, normal ROM, no rigidity, no stridor, no thyromegaly Carotids: bilateral: upstroke normal Thyroid: bilateral: normal size - Respiratory Respiratory: bilateral: diminished, negative: dullness, rales, rhonchi, wheezing, prolonged expiration, prolonged inspiration - Cardiovascular Rhythm: regular Heart sounds: normal: S1, S2 Abnormal Heart Sounds: no systolic murmur, no S3 Gallop, no S4 Gallop - Gastrointestinal General gastrointestinal: normal bowel sounds, soft, no splenomegaly, no tenderness, no umbilical hernia, no ventral hernia - Integumentary Integumentary: normal, normal turgor - Neurologic Neurologic: CNII-XII intact - Musculoskeletal Musculoskeletal: gait normal, strength equal bilaterally - Psychiatric Psychiatric: A&O x's 3, appropriate affect, intact judgment & insight Results CBC & Chem 7: 02/17/19 04:01 02/16/19 11:38 Labs: Abnormal Lab Results - Last 24 Hours (Table) 02/16/19 02/16/19 Range/Units 11:38 11:38 D-Dimer 0.98 H (<0.60) mg/L FEU BUN 29 H (7-17) mg/dL Creatinine 1.60 H (0.52-1.04) mg/dL Glucose 112 H (74-99) mg/dL Thrombosis Risk Factor Assmnt - DVT/VTE Prophylaxis DVT/VTE Prophylaxis: Pharmacologic Prophylaxis ordered, Mechanical Prophylaxis ordered - Choose All That Apply Any of the Below Risk Factors Present?: Yes Each Factor Represents 1 point: Abnormal pulmonary function (COPD), Obesity (BMI >25) Other Risk Factors: Yes Each Risk Factor Represents 2 Points: Age 61-74 years Other congenital or acquired thrombophilia - If yes, enter type in comment: No Thrombosis Risk Factor Assessment Total Risk Factor Score: 4 Thrombosis Risk Factor Assessment Level: Moderate Risk Assessment and Plan Assessment: Assessment and plan: 1. Chest pain likely noncardiac, however the patient does have a few risk factors for coronary artery disease, she did have a stress test about 5 years ago that was negative patient will likely need to repeat a dobutamine stress echo for further evaluation, discontinue heparin drip if her troponins are negative, continue patient on atenolol 25 mg orally once every day, continue patient on aspirin 325 mg orally once every day, cardiology evaluation. 2. Hypertension and hypertensive cardiovascular disease. Continue lisinopril 10 mg orally once every day as well as atenolol 25 mg orally once every day and hydrochlorothiazide 12.5 mg orally once every day. 3. Hyperlipidemia. Low-cholesterol diet, continue fenofibrate 54 mg orally once every day and Zetia 10 mg orally once every day. 4. Chronic low back pain. Continue patient on gabapentin 300 mg orally twice every day. 5. Depression. Continue Zoloft 50 mg orally once every day. 6. GERD. Continue patient on Pepcid 20 mg orally twice every day. 7. Gout. Continue allopurinol 100 mg orally once every day. 8. DVT prophylaxis. Currently on heparin drip. 9. GI process. Currently on Pepcid. 10. Full code. 11. Observation.
[2019-02-17 12:02] VITALS: RESP 16
[2019-02-17] MEDS: GABAPENTIN 300 MG CAP PO SCH (12:12)
[2019-02-17] MEDS: METOPROLOL TARTRATE 25 MG TAB PO SCH (12:13)
[2019-02-17] MEDS: FAMOTIDINE 20 MG TAB PO SCH (12:13)
--- NOTE | 2019-02-17 13:06 | ECHOF ---
Referral Reason:cp MEASUREMENTS -------- HEIGHT: 162.6 cm WEIGHT: 98.4 kg BP: 130/81 RVIDd: 3.4 cm (< 3.3) IVSd: 1.4 cm (0.6 - 1.1) LVIDd: 4.2 cm (3.9 - 5.3) LVPWd: 1.5 cm (0.6 - 1.1) IVSs: 2.1 cm LVIDs: 2.8 cm LVPWs: 1.9 cm LA Diam: 4.0 cm (2.7 - 3.8) LAESV Index (A-L): 29.94 ml/m Ao Diam: 3.8 cm (2.0 - 3.7) AV Cusp: 2.0 cm (1.5 - 2.6) MV EXCURSION: 18.438 mm (> 18.000) MV EF SLOPE: 50 mm/s (70 - 150) EPSS: 0.4 cm MV E Brian: 0.97 m/s MV DecT: 277 ms MV A Brian: 1.00 m/s MV E/A Ratio: 0.97 RAP: 5.00 mmHg RVSP: 37.87 mmHg FINDINGS -------- Sinus rhythm. This was a technically adequate study. The left ventricular size is normal. There is moderate concentric left ventricular hypertrophy. O verall left ventricular systolic function is normal with, an EF between 55 - 60 %. The right ventricle is mildly enlarged. LA is midly dilated 29-33ml/m2. The right atrium is normal in size. Interatrial and interventricular septum intact. The aortic valve is trileaflet and appears structurally normal. Trace amount of aortic regurgitatio n. The mitral valve is normal. Mild tricuspid regurgitation present. There is mild pulmonary hypertension. The right ventricular systolic pressure, as measured by Doppler, is 37.87mmHg. The pulmonic valve was not well visualized. The aortic root is dilated measuring 3.8cm. Normal inferior vena cava with normal inspiratory collapse consistent with estimated right atrial pre ssure of 5 mmHg. There is no pericardial effusion. CONCLUSIONS -------- 1. Sinus rhythm. 2. This was a technically adequate study. 3. The left ventricular size is normal. 4. There is moderate concentric left ventricular hypertrophy. 5. Overall left ventricular systolic function is normal with, an EF between 55 - 60 %. 6. The right ventricle is mildly enlarged. 7. LA is midly dilated 29-33ml/m2. 8. The right atrium is normal in size. 9. Interatrial and interventricular septum intact. 10. The aortic valve is trileaflet and appears structurally normal. 11. Trace amount of aortic regurgitation. 12. The mitral valve is normal. 13. Mild tricuspid regurgitation present. 14. There is mild pulmonary hypertension. 15. The right ventricular systolic pressure, as measured by Doppler, is 37.87mmHg. 16. The pulmonic valve was not well visualized. 17. The aortic root is dilated measuring 3.8cm. 18. Normal inferior vena cava with normal inspiratory collapse consistent with estimated right atrial pressure of 5 mmHg. 19. There is no pericardial effusion. NURSE [employer]LE[employer]: Ivory Charles RDCS
--- NOTE | 2019-02-17 13:18 | ECHOS ---
STRESS ECHOCARDIOGRAM DOBUTAMINE STRESS ECHO DATE OF SERVICE: 02/17/2019 INDICATIONS: Chest pain. MEDICATIONS: BASELINE HEART RATE: 60 BASELINE BLOOD PRESSURE: 125/72 MAXIMUM HEART RATE: 153 MAXIMUM BLOOD PRESSURE: 204/49 85% MPHR: 127 100% MPHR: 149 METS: MAXIMUM STAGE REACHED: TOTAL EXERCISE TIME: CLINICAL INFORMATION: A dobutamine stress echocardiographic study was performed. Peak heart rate of 153 was achieved. Maximum blood pressure of 204/49 mmHg was noted. Resting EKG shows normal sinus rhythm with normal MS interval and QRS duration and normal ST-T waves. No ST- segment depression suggestive of ischemia is noted. The baseline echocardiographic images reveal normal left ventricular chamber size with normal left ventricular systolic function. At the peak dose of dobutamine infusion normal increase in the wall thickness and contractility is noted. FINAL IMPRESSION: This dobutamine stress echocardiographic study is negative for stress-induced ischemia. EKG portion of the stress test is not suggestive of ischemia. MMODL / IJN: [id number] /
[2019-02-17 16:01] VITALS: BP 122/77; PULSE 64; TEMP 98.3
--- NOTE | 2019-02-17 18:53 | P.DS ---
Providers Date of admission: 02/16/19 13:44 Expected date of discharge: 02/17/19 Attending physician: Veronica Jason MD Consults: 02/16/19 13:44 Consult Physician Urgent Consulting Provider: Steph Turner Consult Reason/Comments: cp Do you want consulting provider notified?: Yes Primary care physician: Veronica Jason MD Hospital Course: This is a 73-year-old female one of Dr. Jason with a previous medical history significant for hypertension and hypertensive cardio vascular disease with left ventricular hypertrophy, hyperlipidemia, obesity, chronic low back pa in status post laminectomy with the fusion patient has been having left-sided pain for quite sometimes since August and she was hurting on her left side of the body and at the same time she was complaining of some chest pain and left side has no relation to exertion and not associated with any shortness breath not associated with any dizziness or lightheadedness or any palpitation, patient was seen by her PCP and she was advised to go to the hospital for evaluation of possible heart disease. Patient was seen in the ER she had a twelve-lead EKG that showed normal sinus rhythm without any acute ST-T wave changes there is minimal T-wave inversion in V2 that was thought due to dense breast tissue without any reciprocal changes, patient can't enzymes are negative, however because of the presentation was started on IV heparin drip and she was admitted to the hospital for evaluation by cardiology and possible stress testing. Patient stated that she did have a stress test that was done about 4 years ago. Prior to her back surgery and was negative for stress-induced ischemia. Patient underwent the vitamin stress echo that was negative for stress-induced ischemia, she was started on fenofibrate as well as seborrhea along with metoprolol, she will be discharged home today. Final diagnoses: 1. Chest pain noncardiac. 2. Hypertension and hypertensive cardiovascular disease 3. Hyperlipidemia with low HDL. 4. Gout. 5. GERD. 6. Obesity. 7. Chronic low back pain. Patient Condition at Discharge: Fair Plan - Discharge Summary Discharge Rx Participant: No New Discharge Prescriptions: New Fenofibrate [Lofibra] 54 mg PO DAILY #30 tab Metoprolol Tartrate [Lopressor] 25 mg PO BID #60 tab Ezetimibe [Zetia] 10 mg PO DAILY #30 tab Continue Hydrochlorothiazide [Hydrodiuril] 12.5 mg PO DAILY Montelukast [Singulair] 10 mg PO HS Ranitidine HCl [Zantac] 150 mg PO BID Lisinopril [Prinivil] 10 mg PO HS Sertraline [Zoloft] 50 mg PO DAILY Allopurinol [Zyloprim] 100 mg PO DAILY Cholecalciferol [Vitamin D3 (25 Mcg = 1000 Iu)] 1,000 unit PO DAILY Omeprazole 20 mg PO QAM Gabapentin [Neurontin] 300 mg PO BID Discontinued Atenolol [Tenormin] 25 mg PO DAILY Discharge Medication List Allopurinol [Zyloprim] 100 mg PO DAILY 07/22/14 [History] Hydrochlorothiazide [Hydrodiuril] 12.5 mg PO DAILY 07/22/14 [History] Lisinopril [Prinivil] 10 mg PO HS 07/22/14 [History] Montelukast [Singulair] 10 mg PO HS 07/22/14 [History] Ranitidine HCl [Zantac] 150 mg PO BID 07/22/14 [History] Sertraline [Zoloft] 50 mg PO DAILY 07/22/14 [History] Cholecalciferol [Vitamin D3 (25 Mcg = 1000 Iu)] 1,000 unit PO DAILY 02/16/19 [History] Gabapentin [Neurontin] 300 mg PO BID 02/16/19 [History] Omeprazole 20 mg PO QAM 02/16/19 [History] Ezetimibe [Zetia] 10 mg PO DAILY #30 tab 02/17/19 [Rx] Fenofibrate [Lofibra] 54 mg PO DAILY #30 tab 02/17/19 [Rx] Metoprolol Tartrate [Lopressor] 25 mg PO BID #60 tab 02/17/19 [Rx] Follow up Appointment(s)/Referral(s): Veronica Jason MD [Primary Care Provider] - 1-2 days Mera Greenberg MD [STAFF PHYSICIAN] - 2 Weeks (office will call with appointment. )
[2019-02-18] MEDS ORDERED: FAMOTIDINE 20 MG TAB PO SCH (09:00)
== END 2019-02-17 19:00 | disposition home or self-care (01) ==
LOC: EC 11:23 → 1SOBS 13:44
PROVIDERS: ADMIT Internal Medicine; ATTEND Internal Medicine
DX: R07.89 Other chest pain (principal); E66.9 Obesity, unspecified; Z68.37 Body mass index [BMI] 37.0-37.9, adult; E78.00 Pure hypercholesterolemia, unspecified; E78.5 Hyperlipidemia, unspecified; F32.9 Major depressive disorder, single episode, unspecified; I13.10 Hypertensive heart and chronic kidney disease without heart failure, with stage 1 through stage 4 chronic kidney disease, or unspecified chronic kidney disease; M54.5 Low back pain; K21.9 Gastro-esophageal reflux disease without esophagitis; M10.9 Gout, unspecified; N18.9 Chronic kidney disease, unspecified; J44.9 Chronic obstructive pulmonary disease, unspecified; G89.29 Other chronic pain; E78.1 Pure hyperglyceridemia; Z79.899 Other long term (current) drug therapy; Z88.2 Allergy status to sulfonamides; Z87.442 Personal history of urinary calculi; Z87.891 Personal history of nicotine dependence; Z98.42 Cataract extraction status, left eye; Z98.41 Cataract extraction status, right eye; Z96.1 Presence of intraocular lens; Z80.0 Family history of malignant neoplasm of digestive organs; Z82.3 Family history of stroke; Z82.49 Family history of ischemic heart disease and other diseases of the circulatory system
CPT/HCPCS: 96366 ×3; 96376 ×2; 96365; 99291; 36415; 93005; 93306; 93351; 85379; 83880; 80061; 80053; 83690; 83735; 84484; 85025; 85049; 85610; 85730 ×2; 71046; 78582; G0378 ×2; A9540; A9567; J1250; J1644 ×2

== ENCOUNTER → 2019-04-06 | Outpatient (CLI) | payer MEDICARE ==
[2019-04-07 02:16] LABS: African American GFR (CKD) 40.2 (60.0-200.0); Albumin 4.2 g/dL (3.80-4.90); Albumin/Globulin Ratio 1.83 (1.60-3.17); Anion Gap 10.5 mmol/L (4.00-12.00); Calcium 9.3 mg/dL (8.7-10.3); Carbon Dioxide 23.5 mmol/L (21.6-31.8); Chol/HDL Ratio 6.06; Globulin 2.3 g/dL (1.6-3.3); LDL Cholesterol,Calculated 121.6 mg/dL (0.0-131.0); Non-African American GFR(CKD) 34.7 (60.0-200.0); Potassium 4.9 mmol/L (3.5-5.5); Total Bilirubin 0.3 mg/dL (0.2-1.2); Total Protein 6.5 g/dL (6.2-8.2); VLDL Calculation 50.4 mg/dL (5.00-40.00)
== END | disposition home or self-care (01) ==
LOC: LABWHC1 15:05
PROVIDERS: ATTEND Internal Medicine
DX: I10 Essential (primary) hypertension (principal); N20.0 Calculus of kidney; E78.5 Hyperlipidemia, unspecified
CPT/HCPCS: 36415; 80053; 80061; 82550

== ENCOUNTER 2019-04-08 19:39 | Emergency (ER) | payer MEDICARE ==
[2019-04-08] MEDS ORDERED: FAMOTIDINE 20 MG/2 ML VIAL IV STA (20:50)
[2019-04-08] MEDS ORDERED: ONDANSETRON 4 MG/2 ML VIAL IVP STA (20:50)
[2019-04-08] MEDS ORDERED: SODIUM CHLORIDE 0.9% 1,000 ML IV STA (20:50)
--- NOTE | 2019-04-08 21:09 | ED ---
Nausea/Vomiting/Diarrhea HPI - General Chief complaint: Nausea/Vomiting/Diarrhea Stated complaint: Diarrhea Time Seen by Provider: 04/08/19 20:13 Source: patient Mode of arrival: ambulatory Limitations: no limitations - History of Present Illness Initial comments: 73-year-old female patient presents to the emergency department today for evaluation of nausea and diarrhea. Patient states she's had symptoms since yesterday around noon. Patient states that she had several watery bowel movements throughout the night. Patient states she had the last, but this morning. Patient states today she feels unwell and weak. States that she continues to be nauseated. She has not vomited. She is unable to eat or drink. Denies any fevers but states she has had chills. Denies any recent travel or sick contacts. Denies any recent antibiotic use. Denies any new medications. Denies any ingestion of questionable foods. Patient denies any recent rash, sh ortness breath, chest pain, back pain, numbness, tingling, dizziness, weakness, hematuria, dysuria, urinary urgency, urinary frequency, headache, visual changes, or any other complaints. - Related Data Home Medications Medication Instructions Recorded Confirmed Allopurinol [Zyloprim] 100 mg PO DAILY 07/22/14 04/08/19 Hydrochlorothiazide [Hydrodiuril] 12.5 mg PO DAILY 07/22/14 04/08/19 Lisinopril [Prinivil] 10 mg PO HS 07/22/14 04/08/19 Montelukast [Singulair] 10 mg PO HS 07/22/14 04/08/19 Ranitidine HCl [Zantac] 150 mg PO BID 07/22/14 04/08/19 Sertraline [Zoloft] 50 mg PO DAILY 07/22/14 04/08/19 Cholecalciferol [Vitamin D3 (25 1,000 unit PO DAILY 02/16/19 04/08/19 Mcg = 1000 Iu)] Gabapentin [Neurontin] 300 mg PO BID 02/16/19 04/08/19 Omeprazole 20 mg PO QAM 02/16/19 04/08/19 Previous Rx's Medication Instructions Recorded Ezetimibe [Zetia] 10 mg PO DAILY #30 tab 02/17/19 Fenofibrate [Lofibra] 54 mg PO DAILY #30 tab 02/17/19 Metoprolol Tartrate [Lopressor] 25 mg PO BID #60 tab 02/17/19 Famotidine [Pepcid] 20 mg PO HS #30 tablet 04/08/19 Ondansetron [Zofran ODT] 4 mg PO Q8HR PRN #20 tab 04/08/19 Allergies Allergy/AdvReac Type Severity Reaction Status Date / Time Sulfa (Sulfonamide Allergy Rash/Hives Verified 02/16/19 11:45 Antibiotics) Review of Systems ROS Statement: Those systems with pertinent positive or pertinent negative responses have been documented in the HPI. ROS Other: All systems not noted in ROS Statement are negative. Past Medical History Past Medical History: Asthma, COPD, GERD/Reflux, Hyperlipidemia, Hypertension, Osteoarthritis (OA) Additional Past Medical History / Comment(s): Kidney stones and currently has some in r kidney, bronchitis, gout bilateral feet, "alittle arthritis here and there." History of Any Multi-Drug Resistant Organisms: None Reported Past Surgical History: Appendectomy, Back Surgery, Section, Ledy cystectomy, Orthopedic Surgery Additional Past Surgical History / Comment(s): L/R LITHOTRIPSIES, LEFT ANKLE PLATE SCREW, LUMBAR EPIDURAL PAIN INJECTIONS, 6-8-16 laminectomy, CATARACT - BILATERAL WITH LENS IMPLANT, LASER TREATMENT OF R EYE D/T "FILM" Past Anesthesia/Blood Transfusion Reactions: Motion Sickness, Postoperative Nausea & Vomiting (PONV) Past Psychological History: Depression Smoking Status: Former smoker Past Alcohol Use History: Rare Past Drug Use History: Marijuana - Past Family History Mother Family Medical History: Myocardial Infarction (DE) Additional Family Medical History / Comment(s): Mother of a DE at the age of 75yrs. Father Family Medical History: CVA/TIA Additional Family Medical History / Comment(s): Father of a CVA at the age of 82 yrs. Sister(s) Family Medical History: Vascular Disorder Additional Family Medical History / Comment(s): Sister from an aortic dissection at the age of 56yrs. Brother(s) Family Medical History: Cancer (Patient has one brother with colon cancer.) Daughter(s) Family Medical History: No Reported History (Patient has 2 daughters no major medical problems.) General Exam Limitations: no limitations General appearance: alert, in no apparent distress, other (Physical well- developed, well-nourished adult female patient in no acute distress. Vital si gns upon presentation are temperature 98.2F, pulse 83, respirations 20, blood pressure 167/91, pulse ox 95% on room air.) Eye exam: Present: normal appearance, PERRL, EOMI. Absent: scleral icterus, conjunctival injection, periorbital swelling ENT exam: Present: normal exam, normal oropharynx, mucous membranes moist Respiratory exam: Present: normal lung sounds bilaterally. Absent: respiratory distress, wheezes, rales, rhonchi, stridor Cardiovascular Exam: Present: regular rate, normal rhythm, normal heart sounds. Absent: systolic murmur, diastolic murmur, rubs, gallop, clicks GI/Abdominal exam: Present: soft, normal bowel sounds. Absent: distended, tenderness, guarding, rebound, rigid Neurological exam: Present: alert, oriented X3, CN II-XII intact Psychiatric exam: Present: normal affect, normal mood Skin exam: Present: warm, dry, intact, normal color. Absent: rash Course Vital Signs 04/08/19 04/08/19 19:41 23:35 Temperature 98.2 F 97.8 F Pulse Rate 83 77 Respiratory 20 18 Rate Blood Pressure 167/91 141/76 O2 Sat by Pulse 95 96 Oximetry Medical Decision Making - Medical Decision Making 73-year-old female patient percents to the emergency department today for evaluation of nausea and diarrhea. Physical examination reveals a soft nontender abdomen. Vital signs are within normal ranges. She is afebrile. Labs reviewed and are unremarkable. KUB x-ray was obtained and showed no acute abnormalities. Patient was given IV fluid, Pepcid and Zofran. Upon reevaluation patient reports complete resolution of symptoms and states she is feeling much better. She is requesting to be discharged home. I did discuss findings and results with her. We did discuss a virus as a cause for her symptoms. She is concerned she may have a peptic ulcer. She'll be started on Pepcid. Given a prescription for Zofran. She is instructed follow up with gastroenterology and her primary care physician for recheck as soon as possible. Return parameters were discussed in detail. She verbalizes understanding and agrees with this plan. - Lab Data Result diagrams: 04/08/19 21:00 04/08/19 21:00 Lab Results 04/08/19 04/08/19 04/08/19 Range/Units 21:00 21:00 21:00 WBC 9.6 (3.8-10.6) k/uL RBC 4.69 (3.80-5.40) m/uL Hgb 13.9 (11.4-16.0) gm/dL Hct 42.9 (34.0-46.0) % MCV 91.5 (80.0-100.0) fL MCH 29.7 (25.0-35.0) pg MCHC 32.4 (31.0-37.0) g/dL RDW 14.1 (11.5-15.5) % Plt Count 187 (150-450) k/uL Neutrophils % 75 % Lymphocytes % 13 % Monocytes % 7 % Eosinophils % 3 % Basophils % 1 % Neutrophils # 7.2 (1.3-7.7) k/uL Lymphocytes # 1.2 (1.0-4.8) k/uL Monocytes # 0.7 (0-1.0) k/uL Eosinophils # 0.3 (0-0.7) k/uL Basophils # 0.1 (0-0.2) k/uL Sodium 141 (137-145) mmol/L Potassium 4.0 (3.5-5.1) mmol/L Chloride 108 H (98-107) mmol/L Carbon Dioxide 22 (22-30) mmol/L Anion Gap 11 mmol/L BUN 18 H (7-17) mg/dL Creatinine 1.08 H (0.52-1.04) mg/dL Est GFR (CKD-EPI)AfAm 60 (>60 ml/min/1.73 sqM) Est GFR (CKD-EPI)NonAf 52 (>60 ml/min/1.73 sqM) Glucose 103 H (74-99) mg/dL Calcium 9.9 (8.4-10.2) mg/dL Total Bilirubin 0.6 (0.2-1.3) mg/dL AST 22 (14-36) U/L ALT 15 (9-52) U/L Alkaline Phosphatase 83 (38-126) U/L Troponin I <0.012 (0.000-0.034) ng/mL Total Protein 7.8 (6.3-8.2) g/dL Albumin 4.3 (3.5-5.0) g/dL Amylase 65 (30-110) U/L Lipase 113 (23-300) U/L Urine Color Urine Appearance (Clear) Urine pH (5.0-8.0) Ur Specific [place] (1.001-1.035) Urine Protein (Negative) Urine Glucose (UA) (Negative) Urine Ketones (Negative) Urine Blood (Negative) Urine Nitrite (Negative) Urine Bilirubin (Negative) Urine Urobilinogen (<2.0) mg/dL Ur Leukocyte Esterase (Negative) Urine RBC (0-5) /hpf Urine WBC (0-5) /hpf Ur Squamous Epith Cells (0-4) /hpf Urine Bacteria (None) /hpf Hyaline Casts (0-2) /lpf Urine Mucus (None) /hpf 04/08/19 Range/Units 22:12 WBC (3.8-10.6) k/uL RBC (3.80-5.40) m/uL Hgb (11.4-16.0) gm/dL Hct (34.0-46.0) % MCV (80.0-100.0) fL MCH (25.0-35.0) pg MCHC (31.0-37.0) g/dL RDW (11.5-15.5) % Plt Count (150-450) k/uL Neutrophils % % Lymphocytes % % Monocytes % % Eosinophils % % Basophils % % Neutrophils # (1.3-7.7) k/uL Lymphocytes # (1.0-4.8) k/uL Monocytes # (0-1.0) k/uL Eosinophils # (0-0.7) k/uL Basophils # (0-0.2) k/uL Sodium (137-145) mmol/L Potassium (3.5-5.1) mmol/L Chloride (98-107) mmol/L Carbon Dioxide (22-30) mmol/L Anion Gap mmol/L BUN (7-17) mg/dL Creatinine (0.52-1.04) mg/dL Est GFR (CKD-EPI)AfAm (>60 ml/min/1.73 sqM) Est GFR (CKD-EPI)NonAf (>60 ml/min/1.73 sqM) Glucose (74-99) mg/dL Calcium (8.4-10.2) mg/dL Total Bilirubin (0.2-1.3) mg/dL AST (14-36) U/L ALT (9-52) U/L Alkaline Phosphatase (38-126) U/L Troponin I (0.000-0.034) ng/mL Total Protein (6.3-8.2) g/dL Albumin (3.5-5.0) g/dL Amylase (30-110) U/L Lipase (23-300) U/L Urine Color Yellow Urine Appearance Cloudy H (Clear) Urine pH 5.5 (5.0-8.0) Ur Specific [place] 1.023 (1.001-1.035) Urine Protein 1+ H (Negative) Urine Glucose (UA) Negative (Negative) Urine Ketones 1+ H (Negative) Urine Blood Negative (Negative) Urine Nitrite Negative (Negative) Urine Bilirubin Negative (Negative) Urine Urobilinogen <2.0 (<2.0) mg/dL Ur Leukocyte Esterase Small H (Negative) Urine RBC 2 (0-5) /hpf Urine WBC 10 H (0-5) /hpf Ur Squamous Epith Cells 6 H (0-4) /hpf Urine Bacteria Many H (None) /hpf Hyaline Casts 4 H (0-2) /lpf Urine Mucus Many H (None) /hpf - EKG Data -: EKG Interpreted by Me EKG Comments: EKG obtained at 2102 shows normal sinus rhythm with a ventricular rate of 68, HI interval 192, QRS duration 82, QT 452, QTc 480. No evidence of ST elevation or depression - Radiology Data Radiology results: report reviewed, image reviewed Two-view x-ray of the abdomen is obtained. Report was reviewed in its entirety. Impression by Dr. Hoyt shows right renal calculus unchanged. Nonacute abdomen. Disposition Clinical Impression: Nausea, Diarrhea Disposition: HOME SELF-CARE Condition: Good Instructions (If sedation given, give patient instructions): Acute Nausea and Vomiting (ED), Acute Diarrhea (ED) Additional Instructions: Start with clear liquid diet and advance as tolerated. Take medications as directed. Follow-up she primary care physician for recheck in 1-2 days. Follow up with gastroenterology as needed. Return to the emergency department immediately for any new, worsening, or concerning symptoms. Prescriptions: Famotidine [Pepcid] 20 mg PO HS #30 tablet Ondansetron [Zofran ODT] 4 mg PO Q8HR PRN #20 tab PRN Reason: Nausea Is patient prescribed a controlled substance at d/c from ED?: No Referrals: Veronica Jason MD [Primary Care Provider] - 1-2 days Gloria Coe MD [STAFF PHYSICIAN] - 1-2 days Time of Disposition: 23:05
[2019-04-08 21:19] LABS: Basophils # (A) 0.1 k/uL (0-0.2); Basophils % (A) 1 %; Eosinophils # (A) 0.3 k/uL (0-0.7); Eosinophils % (A) 3 %; HCT 42.9 % (34.0-46.0); HGB 13.9 gm/dL (11.4-16.0); Lymphocytes # (A) 1.2 k/uL (1.0-4.8); Lymphocytes % (A) 13 %; MCH 29.7 pg (25.0-35.0); MCHC 32.4 g/dL (31.0-37.0); MCV 91.5 fL (80.0-100.0); Mean Platelet Volume 7.1; Monocytes # (A) 0.7 k/uL (0-1.0); Monocytes % (A) 7 %; Neutrophils # (A) 7.2 k/uL (1.3-7.7); Neutrophils % (A) 75 %; Platelet Count 187 k/uL (150-450); RBC 4.69 m/uL (3.80-5.40); RDW 14.1 % (11.5-15.5); WBC 9.6 k/uL (3.8-10.6)
--- NOTE | 2019-04-08 21:29 | XR ---
EXAMINATION TYPE: XR KUB DATE OF EXAM: 04/08/2019 COMPARISON: 11/12/2016 HISTORY: Abdominal pain TECHNIQUE: 2 views upright FINDINGS: There is no sign of intestinal obstruction or pneumoperitoneum. Fecal pattern is normal. Th ere is a 8 mm calculus over the right kidney. There is no sign of a mass. Lung bases appear clear. IMPRESSION: Right renal calculus unchanged. Nonacute abdomen.
[2019-04-08 21:30] LABS: Albumin 4.3 g/dL (3.5-5.0); Calcium 9.9 mg/dL (8.4-10.2); Total Bilirubin 0.6 mg/dL (0.2-1.3); Total Protein 7.8 g/dL (6.3-8.2)
[2019-04-08 22:28] LABS: Appearance,Urine Cloudy (Clear); Bacteria,Urine Many /hpf; Bilirubin,Urine Negative (Negative); Blood,Urine Negative (Negative); Color,Urine Yellow; Glucose,Urine (UA) Negative (Negative); Hyaline Casts,Urine 4 /lpf (0-2); Ketones,Urine 1+ (Negative); Leukocyte Esterase,Urine Small (Negative); Mucus,Urine Many /hpf; Nitrite,Urine Negative (Negative); PH, Urine 5.5 (5.0-8.0); Protein,Urine 1+ (Negative); RBC,Urine 2 /hpf (0-5); Specific Gravity,Urine 1.023 (1.001-1.035); Squamous Epithelial Cell,Urine 6 /hpf (0-4); Urobilinogen,Urine <2.0 mg/dL (<2.0); WBC,Urine 10 /hpf (0-5)
[2019-04-08] MEDS ORDERED: ONDANSETRON 4 MG ODT STARTER PACK 2 TAB BTL PO STA (23:06)
[2019-04-08 23:37] VITALS: BP 141/76; PULSE 77; RESP 18; TEMP 97.8
== END 2019-04-08 23:37 | disposition home or self-care (01) ==
LOC: EC 19:39
DX: R19.7 Diarrhea, unspecified (principal); R11.0 Nausea; R53.1 Weakness; R68.83 Chills (without fever); J44.9 Chronic obstructive pulmonary disease, unspecified; K21.9 Gastro-esophageal reflux disease without esophagitis; I10 Essential (primary) hypertension; M10.9 Gout, unspecified; N20.0 Calculus of kidney; M19.90 Unspecified osteoarthritis, unspecified site; Z87.891 Personal history of nicotine dependence; Z88.2 Allergy status to sulfonamides; Z79.899 Other long term (current) drug therapy; Z90.49 Acquired absence of other specified parts of digestive tract; Z98.890 Other specified postprocedural states; Z96.698 Presence of other orthopedic joint implants; Z80.0 Family history of malignant neoplasm of digestive organs
CPT/HCPCS: 36415; 93005; 80053; 82150; 83690; 84484; 85025; 81001; 74018; 99284; 96374; 96375; 96361 ×2; J2405; S0119

== ENCOUNTER 2019-06-03 11:55 | Day surgery (SDC) | payer MEDICARE ==
[2019-06-01 15:20] VITALS: BMI 36.3
[~2019-06-03 11:55] MED LIST changes: -ATROPINE SULFATE 0.1 MG/ML 10ML SYRINGE ONE; +LACTATED RINGERS 1,000 ML IV SCH; +LIDOCAINE 1% 20 ML VIAL (10MG/ML) FOR IV START INTRADERMA PRN; -METOPROLOL TARTRATE 5 MG/5 ML VIAL IVP ONE
[2019-06-03] MEDS ORDERED: LACTATED RINGERS 1,000 ML IV ONE (12:25)
[2019-06-03 12:30] VITALS: TEMP 07.8
[2019-06-03] MEDS ORDERED: LIDOCAINE 1% INJ 10MG/ML (20 ML MDV) ONE (12:38)
[2019-06-03] MEDS ORDERED: PROPOFOL 10 MG/ML 50 ML VIAL IV ONE (12:38)
--- NOTE | 2019-06-03 12:55 | P.PCN ---
Date of Procedure: 06/03/19 Procedure(s) Performed: Brief history: Patient is a pleasant 74-year-old white female, scheduled for an elective upper endoscopy as well as colonoscopy as a part of evaluation of surveillance of long-standing history of GERD and screening for colon cancer. Procedure performed: Esophagogastroduodenoscopy with biopsy Colonoscopy and snare polypectomy Preoperative diagnosis: Long-standing history of GERD Screening for colon cancer Anesthesia: MAC Procedure: After informed consent was obtained from the patient was brought into the endoscopy unit and IV sedation was administered by anesthesia under continuous monitoring. Initially upper endoscopy was done. The Olympus GF 160 video endoscope was inserted inserted into the mouth and esophagus intubated without any difficulty and was gradually advanced into the stomach and duodenum and carefully examined. The bulb and second part of the duodenum appeared normal. The scope was then withdrawn into the stomach adequately insufflated with air and upon careful examination the antrum mild gastritis and biopsies were done from this area. The body, cardia and fundus appeared normal. The scope was then withdrawn into the esophagus. The GE junction was located at 40 cm to the incisors. It appeared regular with no erythema erosions or ulcerations. Rest of the esophagus appeared normal. Patient tolerated the procedure well. At this time the patient continued to remain sedation. Initial digital rectal examination was normal. Olympus CF 160 video colonoscope was then inserted into the rectum and gradually advanced to the cecum without any difficulty. Careful examination was performed as the scope was gradually being withdrawn. The prep was excellent. The cecum, ascending colon, appeared normal. In the transverse colon there was a 1 cm polyp that was removed by snare polypectomy. transverse colon, descending colon, sigmoid colon and rectum appeared normal. Retroflexion was performed in the rectum and no lesions were noted. Patient tolerated the procedure well. Impression: 1. Upper endoscopy revealed mild antral gastritis but no evidence of esophagitis or You's esophagus 2. Colonoscopy revealed a 1 cm broad-based transverse colon polyp status post polypectomy Recommendations: Findings of this examination were discussed with the patient as well as her family. She was advised to continue with her current medications and follow antireflux measures. she'll follow with the biopsy results and if the biopsy shows an adenoma she can have a repeat colonoscopy in 5 years
[2019-06-03 13:08] VITALS: RESP 16
[2019-06-03 13:39] VITALS: BP 115/77; PULSE 68
== END 2019-06-03 13:41 | disposition home or self-care (01) ==
LOC: ORWHC2ENDO 11:55
PROVIDERS: ATTEND Internal Medicine Gastroenterology
DX: Z12.11 Encounter for screening for malignant neoplasm of colon (principal); D12.3 Benign neoplasm of transverse colon; K21.9 Gastro-esophageal reflux disease without esophagitis; K29.50 Unspecified chronic gastritis without bleeding; I10 Essential (primary) hypertension; E78.5 Hyperlipidemia, unspecified; J44.9 Chronic obstructive pulmonary disease, unspecified; Z97.2 Presence of dental prosthetic device (complete) (partial); Z79.82 Long term (current) use of aspirin; Z79.899 Other long term (current) drug therapy; Z88.2 Allergy status to sulfonamides
CPT/HCPCS: 88305; 45385; 43239; J2001; J2704

== ENCOUNTER → 2020-03-16 | Outpatient (CLI) | payer MEDICARE ==
--- NOTE | 2020-03-16 16:12 | BD ---
EXAMINATION TYPE: Axial Bone Density DATE OF EXAM: 03/16/2020 COMPARISON: NONE CLINICAL HISTORY: Height: 63 IN Weight: 210 LBS FRAX RISK QUESTIONS: History of Fracture in Adulthood: LT ANKLE FX AGE 60 PT HAD L-SPINE SURGERY 2016 RISK FACTORS HISTORY OF: Active: YES Postmenopausal woman: AGE 57 Take estrogen and/or progesterone medications: NOT NOW How long: AGE 55-57 MEDICATIONS: Additional Medications: VIT D, BLOOD PRESSURE MEDS, CHOLESTEROL MEDS, GOUT MEDS, ACID REFLUX MEDS EXAM MEASUREMENTS: Bone mineral densitometry was performed using the [employer] System. L-SPINE SURGERY 2016 Bone mineral density about the R hip (g/cm2): 0.883 Bone mineral density about the L hip (g/cm2): 0.994 T Score values are as follows: -----R Neck: -1.1 -----L Neck: -0.3 -----R Total: -0.5 -----L Total: 0.5 Bone mineral density BASELINE Bone mineral density about the L Wrist (g/cm2): 0.551 T Score values are as follows: -----Dist. R+U: -1.0 -----Prox. R+U: -2.0 -----Radius total: -2.0 Bone mineral density BASELINE IMPRESSION: Osteopenia (T Score between -2.5 and -1). There is slightly increased risk of fracture and the patient may be considered for treatment. Re-Screen 2-5 years. NOTE: T-SCORE=SD OF THE YOUNG ADULT MEAN.
--- NOTE | 2020-03-17 08:54 | MM ---
Reason for exam: screening (asymptomatic). Last mammogram was performed 4 years and 10 months ago. History: Patient is postmenopausal. Physical Findings: A clinical breast exam by your physician is recommended on an annual basis and results should be correlated with mammographic findings. MG 3D Screening Mammo W/Cad Bilateral CC and MLO view(s) were taken. XCCL view(s) were taken of the right breast. Prior study comparison: May 11, 2015, mammogram. May 12, 2012, mammogram. The breast tissue is heterogeneously dense. This may lower the sensitivity of mammography. Finding: There is a 8 mm equal density (isodense) mass in the subareolar position of the left breast. There is a chronic nodularity in the right breast, stable. ASSESSMENT: Incomplete: need additional imaging evaluation, BI-RAD 0 RECOMMENDATION: Special view mammogram and ultrasound of the left breast. [facility] will attempt to contact patient to return for supplemental views and ultrasound.
== END | disposition home or self-care (01) ==
LOC: RADMAMWWP 14:08
PROVIDERS: ATTEND Internal Medicine
DX: Z12.31 Encounter for screening mammogram for malignant neoplasm of breast (principal); M81.0 Age-related osteoporosis without current pathological fracture; M85.80 Other specified disorders of bone density and structure, unspecified site
CPT/HCPCS: 77063; 77067; 77080

== ENCOUNTER → 2020-03-21 | Outpatient (CLI) | payer MEDICARE ==
--- NOTE | 2020-03-25 08:13 | MM ---
Reason for exam: additional evaluation requested from abnormal screening. Last mammogram was performed less than 1 month ago. History: Patient is postmenopausal. Took estrogen beginning at age 57. Took progesterone beginning at age 57. Physical Findings: Nurse did not find any significant physical abnormalities on exam. MG 3D Work Up W/Cad LT Spot compression CC, spot compression MLO, and LM view(s) were taken of the left breast. Prior study comparison: March 16, 2020, bilateral MG 3d screening mammo w/cad. May 11, 2015, mammogram. The breast tissue is heterogeneously dense. This may lower the sensitivity of mammography. There is chronic nodularity in the left breast. These results were verbally communicated with the patient and result sheet given to the patient on 03/21/20. ASSESSMENT: Probably benign, BI-RAD 3 RECOMMENDATION: Follow-up diagnostic mammogram and ultrasound of the left breast in 6 months.
--- NOTE | 2020-03-25 08:15 | USB ---
Reason for exam: additional evaluation requested from abnormal screening. History: Patient is postmenopausal. Took estrogen beginning at age 57. Took progesterone beginning at age 57. US Breast Workup Limited LT Left limited breast ultrasound including focal area of concern, retroareolar and axilla demonstrates a 0.4 x 0.4 x 0.4cm round, cystic, hypoechoic lesion at 3 o'clock. Ductal ectasia noted, multiple nodes in axilla. These results were verbally communicated with the patient and result sheet given to the patient on 03/21/20. ASSESSMENT: Probably benign, BI-RAD 3 RECOMMENDATION: Follow-up diagnostic mammogram and ultrasound of the left breast in 6 months.
== END | disposition home or self-care (01) ==
LOC: RADMAMWWP 14:12
PROVIDERS: ATTEND Internal Medicine
DX: R92.8 Other abnormal and inconclusive findings on diagnostic imaging of breast (principal)
CPT/HCPCS: 77065; 76642; G0279; 77061

== ENCOUNTER → 2021-03-10 | Outpatient (CLI) | payer MEDICARE ==
--- NOTE | 2021-03-10 13:39 | MR ---
EXAMINATION TYPE: MR cervical spine wo con DATE OF EXAM: 03/10/2021 COMPARISON: HISTORY: Neck pain into left UE TECHNIQUE: Multiplanar, multisequence images of the cervical spine were acquired. C2-C3: No evidence for degenerative disc disease. No disc bulge/herniation or protrusion. No Canal stenosis. Foramina are patent bilaterally. C3-C4: No evidence for degenerative disc disease. No disc bulge/herniation or protrusion. No Canal stenosis. Foramina are patent on the right, foraminal encroachment present in left due to uncoverteb ral joint hypertrophy, facet arthropathy. C4-C5: Posterior central disc protrusion contacts the anterior cervical cord. There is some mild righ t-sided foraminal encroachment due to uncovertebral joint hypertrophy and facet arthropathy. No signi ficant spinal stenosis. C5-C6: Posterior left paracentral disc protrusion, posterior extension of endplate disc complex prese nt is small but contacts the anterior cervical cord. No significant spinal stenosis. Uncovertebral ian int hypertrophy and facet arthropathy causes bilateral foraminal encroachment C6-C7: Posterior extension endplate disc complex contacts the anterior cervical cord. No significant spinal stenosis or foraminal encroachment. C7-T1: Listhesis contributes to cause some mild central stenosis, there is bilateral foraminal encroa chment contributed by facet arthropathy. Posterior extension endplate disc complex effaces the anteri or thecal sac. Cervical segments are intact. There is reversal of the normal cervical lordosis, there may be underl linda muscle spasm, minimal anterolisthesis grade 1 C3-4, retrolisthesis grade 1 C5-6, anterolisthesis grade 1 C7-T1. Cervical spinal cord is of normal signal. Craniovertebral junction relationships ar e within normal limits. There is multilevel spondylosis. Endplate discogenic marrow signal changes a re present, there is some associated loss of disc height signal greatest at C4-5, C5-6, C7-T1 greater than C6-7. IMPRESSION: Degenerative disc disease, facet arthropathy, multilevel foraminal encroachment as described. Some sp inal stenosis noted at C7-T1
== END | disposition home or self-care (01) ==
LOC: RADMRIMAIN 11:17
PROVIDERS: ATTEND Internal Medicine
DX: M48.03 Spinal stenosis, cervicothoracic region (principal); M12.88 Other specific arthropathies, not elsewhere classified, other specified site; M51.34 Other intervertebral disc degeneration, thoracic region
CPT/HCPCS: 72141

== ENCOUNTER → 2021-08-02 | Outpatient (CLI) | payer MEDICARE ==
--- NOTE | 2021-08-30 12:24 | ECHOF ---
Referral Reason:I50.30 Unspecified diastolic (congestive) heart fa MEASUREMENTS -------- HEIGHT: 160.0 cm WEIGHT: 100.2 kg BP: IVSd: 1.3 cm (0.6 - 1.1) LVIDd: 4.3 cm (3.9 - 5.3) LVPWd: 1.5 cm (0.6 - 1.1) EDV(Teich): 85 ml IVSs: 1.4 cm LVIDs: 2.7 cm LVPWs: 1.6 cm %IVS Thck: 15 % ESV(Teich): 27 ml EF(Teich): 69 % %FS: 38 % SV(Teich): 58 ml LA Diam: 4.0 cm (2.7 - 3.8) RVIDd: 3.3 cm (< 3.3) Ao Diam: 3.2 cm (2.0 - 3.7) MV E Brian: 0.38 m/s MV DecT: 404 ms MV Dec Wilbarger: 0.9 m/s MV A Brian: 0.58 m/s MV E/A Ratio: 0.65 MV PHT: 117 ms TR Vmax: 2.07 m/s TR maxP.10 mmHg RAP: 5.00 mmHg RVSP: 22.10 mmHg FINDINGS -------- Sinus rhythm. This was a technically adequate study. The left ventricular size is normal. There is mild concentric left ventricular hypertrophy. Overa ll left ventricular systolic function is low-normal with, an EF between 50 - 55 %. The right ventricle is normal in size. The left atrial size is normal. The right atrial size is normal. There is mild aortic valve sclerosis. Mild mitral regurgitation is present. Mild tricuspid regurgitation present. Right ventricular systolic pressure is normal at < 35 mmHg. The pulmonic valve was not well visualized. Echo free space represents a pericardial fat pad. CONCLUSIONS -------- 1. The left ventricular size is normal. 2. There is mild concentric left ventricular hypertrophy. 3. Overall left ventricular systolic function is low-normal with, an EF between 50 - 55 %. 4. The right ventricle is normal in size. 5. The left atrial size is normal. 6. The right atrial size is normal. 7. There is mild aortic valve sclerosis. 8. Mild mitral regurgitation is present. 9. Mild tricuspid regurgitation present. 10. The pulmonic valve was not well visualized. 11. Echo free space represents a pericardial fat pad. [employer] W[employer]ER: Estelita Pedroza RDCS
== END | disposition home or self-care (01) ==
LOC: RADECHMAIN 11:32
PROVIDERS: ATTEND Internal Medicine
DX: I50.30 Unspecified diastolic (congestive) heart failure (principal); I08.3 Combined rheumatic disorders of mitral, aortic and tricuspid valves
CPT/HCPCS: 93306

== ENCOUNTER → 2022-01-24 | Outpatient (CLI) | payer MEDICARE ==
--- NOTE | 2022-01-24 09:29 | MR ---
EXAMINATION TYPE: MR brain wo/w con DATE OF EXAM: 01/24/2022 COMPARISON: None HISTORY: Normal pressure hydrocephalus, headaches, loss of balance, memory loss TECHNIQUE: Multiplanar, multisequence images of the brain and brainstem is performed without and with IV contras t, utilizing 10 mL intravenous Gadavist . FINDINGS: Diffusion weighted images demonstrate no evidence of a recent infarct or other diffusion ab normality. There is no extra-axial fluid collection. Hyperintensity and inversion recovery T2-weigh mireya sequences present within the antony, periventricular and pericallosal, subcortical white matter. Th e ventricular system and cisternal spaces are normal in size and appearance. The brain volume is age appropriate, there is cortical atrophy. Midline structures demonstrate normal morphology. The craniocervical junction appears within normal limits. Post contrast images demonstrate no abnormal enhancement. The dural venous sinuses appear pa tent. The visualized sinuses are remarkable for inflammatory change in the ethmoid air cells and the globes are intact. Some mild fluid signal present in the mastoid air cells on the right. IMPRESSION: Probable age-related atrophy and chronic small vessel ischemia. Mild sinus disease as nadia cribed
== END | disposition home or self-care (01) ==
LOC: RADMRIMAIN 07:55
PROVIDERS: ATTEND Internal Medicine Geriatric Medicine
DX: I67.82 Cerebral ischemia (principal)
CPT/HCPCS: 70553; A9585

== ENCOUNTER → 2022-02-23 | Outpatient (CLI) | payer MEDICARE ==
--- NOTE | 2022-02-23 10:22 | US ---
EXAMINATION TYPE: US kidneys/renal and bladder DATE OF EXAM: 02/23/2022 COMPARISON: CLINICAL HISTORY: KIDNEY STONE N20.0. Hx renal stones and cysts. Flank pain. EXAM MEASUREMENTS: Right Kidney: 7.9 x 4.3 x 4.6 cm Left Kidney: 12.2 x 4.5 x 5.5 cm Right Kidney: Lower pole cystic lesion = 2.1 x 5.2 x 5.5 cm. Echogenic focus with shadow mid kidney= 0.7 cm. Thin cortex and appears lobular. Left Kidney: Multiple cystic lesions seen, largest= 1.6 x 1.9 x 1.6 cm. Lobular cortex and appears h eterogenous. Larger in size compares to contralateral kidney. Bladder: distended, anechoic Bilateral Jets not seen IMPRESSION: 1. Bilateral renal cysts. 2. Nonobstructing right renal stone 3. Lobular appearance of the bilateral kidneys. Consider follow-up exam in 6 months.
== END | disposition home or self-care (01) ==
LOC: RADUSWWP 09:29
PROVIDERS: ATTEND Internal Medicine Geriatric Medicine
DX: N20.0 Calculus of kidney (principal); N28.1 Cyst of kidney, acquired
CPT/HCPCS: 76770

== ENCOUNTER → 2022-05-14 | Outpatient (CLI) | payer MEDICARE ==
[2022-05-14 16:50] LABS: INR 0.9 (<1.2); Partial Thromboplastin Time 22.8 sec (22.0-30.0); Prothrombin Time 9.9 sec (9.0-12.0)
[2022-05-15 00:03] LABS: Appearance,Urine Clear (Clear); Bilirubin,Urine Negative (Negative); Blood,Urine Negative (Negative); Color,Urine Yellow (Yellow); Ketones,Urine Negative (Negative); Nitrite,Urine Negative (Negative); Specific Gravity,Urine 1.017 (1.001-1.030)
[2022-05-15 01:06] LABS: HCT 38.5 % (37.2-46.3); HGB 12.4 g/dL (12.0-15.0); MCH 29.5 pg (27.0-32.0); MCHC 32.2 g/dL (32.0-37.0); MCV 91.7 fL (80.0-97.0); Mean Platelet Volume 10.8 fL (9.5-12.2); NRBC Per 100 WBC 0 /100 WBCS (0.0-0.0); Platelet Count 163 X 10*3/uL (140-440); RDW 14.3 % (11.5-14.5); WBC 8.42 X 10*3/uL (4.50-10.00)
[2022-05-15 01:14] LABS: African American GFR (CKD) 28.3 (60.0-200.0); Albumin 4.1 g/dL (3.8-4.9); Albumin/Globulin Ratio 1.53 (1.60-3.17); Anion Gap 10.9 mmol/L (10.00-18.00); BUN/Creat Ratio 16.89 Ratio (12.00-20.00); Blood Urea Nitrogen 33.1 mg/dL (9.0-27.0); Calcium 9.3 mg/dL (8.7-10.3); Globulin 2.7 g/dL (1.6-3.3); Non-African American GFR(CKD) 24.4 (60.0-200.0); Total Bilirubin 0.3 mg/dL (0.30-1.20); Total Protein 6.8 g/dL (6.2-8.2)
== END | disposition home or self-care (01) ==
LOC: LABPAT 15:39
PROVIDERS: ATTEND Orthopaedic Surgery Sports Medicine
DX: Z01.812 Encounter for preprocedural laboratory examination (principal); M17.12 Unilateral primary osteoarthritis, left knee
CPT/HCPCS: 80053; 81001; 85027; 85610; 85730; 87070

== ENCOUNTER 2022-05-17 06:35 | Day surgery (SDC) | payer MEDICARE ==
[~2022-05-17 06:35] MED LIST changes: +ACETAMINOPHEN TAB 500 MG TAB PO PRN; +DEXAMETHASONE SOD PHOSPHATE 4 MG/ML 1 ML VIAL IV ONE; +GABAPENTIN 300 MG CAP PO PRN; +HYDROmorphone 0.5 MG/0.5 ML SYRINGE IVP PRN; -LACTATED RINGERS 1,000 ML IV SCH; -LIDOCAINE 1% 20 ML VIAL (10MG/ML) FOR IV START INTRADERMA PRN; +MELOXICAM 7.5 MG TAB PO PRN; +ONDANSETRON 4 MG/2 ML VIAL IVP ONE; +ONDANSETRON 4 MG/2 ML VIAL IVP PRN; +TRANEXAMIC ACID IN NACL,ISO-OS 1,000 MG in SALINE 1 100ML.BAG IVPB PRN
[2022-05-17] MEDS: LACTATED RINGERS 1,000 ML IV SCH ×2 (07:38→12:39)
[2022-05-17 08:29] LABS: Albumin 4.1 g/dL (3.5-5.0); Calcium 8.9 mg/dL (8.4-10.2); Total Bilirubin 0.9 mg/dL (0.2-1.3); Total Protein 7.1 g/dL (6.3-8.2)
[2022-05-17 08:34] LABS: Potassium 3.9 mmol/L (3.5-5.1)
[2022-05-17] MEDS ORDERED: MIDAZOLAM 2 MG/2 ML VIAL IVP ONE (08:47)
[2022-05-17] MEDS ORDERED: fentaNYL (PF) 50 MCG/ML 2 ML AMP IVP ONE (08:47)
--- NOTE | 2022-05-17 09:50 | P.ANPRN ---
Procedure Note - Anesthesia - Nerve Block Performed Left Adductor Canal Infusion Time Out Performed: Yes (0846) Date of Procedure: 05/17/22 Procedure Start Time: 08:47 Procedure Stop Time: 08:51 Location of Patient: PreOp Indication: Acute Post-Operative Pain, Requested by Surgeon Specifically requested for management of pain by DrJanette: Juancho Cardoza Sedation Type: Sedate with meaningful contact maintained Preparation: Sterile Prep Position: Supine Catheter Depth at Skin (cm): 7 Catheter: Indwelling Needle Types: Pajunk Needle Gauge: 21 Ultrasound used to visualize needle placement: Yes Ultrasound used to observe medication spread: Yes Injectate: 0.5% Ropivacaine (see comment for volume) (15cc + 5cc nacl pf) Blood Aspirated: No Pain Paresthesia on Injection Noted: No Resistance on Injection: Normal Image Stored and Saved: Yes Events: Uneventful and Well Tolerated
[2022-05-17] MEDS ORDERED: fentaNYL (PF) 50 MCG/ML 2 ML AMP ONE (09:51)
[2022-05-17] MEDS ORDERED: ROPIVACAINE 5 MG/ML 30 ML VIAL ONE (09:51)
[2022-05-17] MEDS ORDERED: MIDAZOLAM 2 MG/2 ML VIAL ONE (09:51)
[2022-05-17] MEDS ORDERED: PROPOFOL 10 MG/ML 20 ML VIAL IV ONE (09:51)
[2022-05-17] MEDS ORDERED: TRANEXAMIC ACID IN NACL,ISO-OS 1,000 MG/100 ML BAG ONE (09:51)
[2022-05-17] MEDS ORDERED: SODIUM CHLORIDE 0.9% (PF) 10 ML VIAL ONE (09:51)
--- NOTE | 2022-05-17 09:51 | P.ANPRN ---
Procedure Note - Anesthesia - Nerve Block Performed Left Single Time Out Performed: Yes (0846) Date of Procedure: 05/17/22 Procedure Start Time: 08:52 Procedure Stop Time: 08:54 Location of Patient: PreOp Indication: Acute Post-Operative Pain, Requested by Surgeon Specifically requested for management of pain by DrJanette: Manuel Blake Sedation Type: Sedate with meaningful contact maintained Preparation: Sterile Prep Position: Supine Catheter: None Needle Types: Pajunk Needle Gauge: 21 Ultrasound used to visualize needle placement: Yes Ultrasound used to observe medication spread: Yes Injectate: 0.5% Ropivacaine (see comment for volume) (15cc +5cc nacl pf) Blood Aspirated: No Pain Paresthesia on Injection Noted: No Resistance on Injection: Normal Image Stored and Saved: Yes Events: Uneventful and Well Tolerated
[2022-05-17] MEDS ORDERED: NA PHOS,M-B/NA PHOS,DI-BA 133 ML ENEMA RECTAL PRN (09:53)
[2022-05-17] MEDS ORDERED: diazePAM 5 MG TAB PO PRN (09:53)
[2022-05-17] MEDS ORDERED: MAGNESIUM HYDROXIDE 2,400 MG/10 ML CUP PO PRN (09:53)
[2022-05-17] MEDS ORDERED: ONDANSETRON 4 MG/2 ML VIAL IVP PRN (09:53)
[2022-05-17] MEDS ORDERED: bisacodyL 10 MG SUPP RECTAL PRN (09:53)
[2022-05-17] MEDS ORDERED: NALOXONE 0.4 MG/ML 1 ML VIAL IV PRN (09:53)
[2022-05-17] MEDS ORDERED: HYDROmorphone 0.5 MG/0.5 ML SYRINGE IVP PRN ×3 (09:53)
[2022-05-17] MEDS ORDERED: traMADol 50 MG TAB PO PRN (09:53)
[2022-05-17] MEDS ORDERED: HYDROcodone/APAP 7.5-325MG 1 EACH TAB PO PRN (09:57)
[2022-05-17] MEDS ORDERED: ceFAZolin 3,000 MG in SODIUM CHLORIDE 0.9% IRRIGATIO 3,000 ML IRRIGATION ONE (10:22)
[2022-05-17] MEDS ORDERED: ROPIVACAINE 0.2%-NS ON-Q PUMP 1,090 MG, EMPTY PAIN BALL 1 EACH MISCELLANE PRN (12:03)
--- NOTE | 2022-05-17 12:25 | XR ---
EXAMINATION TYPE: XR knee limited LT DATE OF EXAM: 05/17/2022 COMPARISON: NONE HISTORY: 77-year-old female evaluation for postoperative abnormality and alignment. TECHNIQUE: 2 views FINDINGS: Images show placement of left total knee arthroplasty. Both distal femoral and proximal tibial compon ents of the prosthesis appear well seated without periprosthetic fracture. Alignment grossly anatomic . Anterior soft tissue swelling with scattered soft tissue air as well as intra-articular air related to recent operation. IMPRESSION: Uncomplicated postoperative appearance left total knee arthroplasty.
[2022-05-17] MEDS ORDERED: LACTATED RINGERS 1,000 ML IV ONE (12:48)
[2022-05-17] MEDS ORDERED: SUCRALFATE 1 GM TAB PO PRN (14:53)
[2022-05-17] MEDS ORDERED: MECLIZINE 25 MG TAB PO PRN (14:53)
[2022-05-17] MEDS ORDERED: ALBUTEROL NEBULIZED 2.5 MG/3 ML INHALATION PRN (14:53)
[2022-05-17] MEDS: HYDROcodone/APAP 7.5-325MG 1 EACH TAB PO PRN ×2 (15:59→22:02)
--- NOTE | 2022-05-17 18:34 | OP ---
OPERATIVE REPORT PREOPERATIVE DIAGNOSIS: Left knee osteoarthrosis. POSTOPERATIVE DIAGNOSIS: Left knee osteoarthrosis. PROCEDURE PERFORMED: Left total knee arthroplasty. ANESTHESIA: Spinal with sedation. ESTIMATED BLOOD LOSS: 100 mL. TOURNIQUET TIME: 49 minutes at 250 mmHg. COMPLICATIONS: None apparent. DRAINS: None. DISPOSITION: Postanesthesia care unit. INDICATIONS FOR PROCEDURE: Cheryl is a very pleasant 77-year-old female with longstanding history of left knee pain. History and physical examination are consistent with advanced left knee osteoarthrosis. She had been through significant nonoperative management up to this point. Further treatment options were discussed, and she has decided to go forward with the left total knee arthroplasty. Risks of procedure were discussed with her in detail. These risks include, but are not limited to risk of infection, nerve damage, bleeding, pain, and a small risk of deep vein thrombosis which could lead to fatal pulmonary embolism. There is also risk of loosening of the implant which could require revision operation. The patient understands these risks. All of her questions were answered to her satisfaction. An appropriate informed consent was obtained. DESCRIPTION OF PROCEDURE: The patient was identified in the preoperative holding area. Surgical site was marked by both the patient and myself. She was given 2 g of Ancef IV for prophylactic purposes. She was then transferred to the operative suite. She was placed supine on the operating room table. A spinal anesthetic was then administered and dosed per the Anesthesia Department without apparent complication. Examination under anesthesia was then performed. The patient was 2 to 3 degrees shy of full extension. She had 100 degrees of flexion, and the medial collateral ligament, lateral collateral ligament, and posterior cruciate ligaments were stable. Tourniquet was then placed high on the left upper thigh and well-padded in preparation for surgery. The patient's left lower extremity was then prepped and draped in usual sterile fashion. Standard surgical pause was undertaken to ensure that we were operating the correct site and that appropriate preoperative antibiotics had been given. All staff in the room were in agreement, and we proceeded. The outlines of the patella were marked with a surgical pen. A planned 12 cm vertical incision centered over the patella was marked with a surgical pen. The leg was then exsanguinated with an Esmarch dressing. The knee was then flexed, and the tourniquet was inflated to 250 mmHg. The total tourniquet time for the procedure was 49 minutes Incision was then made with a 10-blade scalpel. Dissection was carried down sharply overlying the fascia. Great care was taken to minimize the skin flaps. The knee was then exposed using a standard medial parapatellar approach. A small cuff of quadriceps tendon was then left for suturing. She was in a bit of varus preoperatively. A standard medial release was then made. Superficial medial collateral ligament was dissected off the bone around to the posterior aspect of the proximal tibia. The medial meniscus was then excised as well. The lateral meniscus was also released anteriorly. The leg was then externally rotated. The patella was everted. The knee was flexed. The retractors were then placed to protect the collateral ligaments. I then proceeded to remove the infrapatellar fat pad. This was excised sharply tangentially with fibers of the patellar tendon. I then proceeded to remove the peripheral osteophytes. This was done with a rongeur. I then proceeded with the distal femoral resection. She did have near full extension. A planned 9 mm resection was then done. The femoral canal was then entered in the midline of the femur approximately 10 mm anterior to the origin of the posterior cruciate ligament. The marie was then advanced down to the center of the femur and placed intramedullary. Based on the preoperative radiographs, the angle between the anatomic and mechanical axis of the femur was approximately 4 to 5 degrees. The valgus angle of the distal femoral cutting guide was then set at 4 degrees for the left knee. The distal femoral cutting guide was then advanced over the intramedullary marie. This was seated firmly against the femur. I then as mentioned planned to take 9 mm off the distal femur. The cutting block was then secured onto the femur with pins. The jig was then removed. The distal femoral cuts were made through the slot of the block. The pins were then removed. The distal femoral cutting block was removed. The accuracy of the distal femoral cuts was checked with 2 flat bars. I then proceeded with femoral sizing. Posterior referencing sizing guide was held firmly against the resected distal surface of the femur. The posterior condyles were resting on the posterior plane of the guide. The sizing stylus was then placed onto the anterior femur. The size was measured as a size 8. I then assessed for femoral rotation. Plan was for 3 degrees of external rotation. Three degrees of external rotation was placed onto the jig. These holes were then marked. I then confirmed the rotation by 3 separate methods. This was done using epicondylar axis as well as Lilliana's line and posterior referencing. It was deemed that the external rotation was proper. I then went forward and placed the femoral cutting block. This was placed over the previously-placed pin holes. The Addison wing was then placed onto the anterior slots to ensure that we would not notch the anterior femur with the anterior femoral cut. I then proceeded with the anterior femoral cut. This was flush with the anterior cortex of the femur. The posterior cuts were then made followed by the anterior chamfer cut and then the posterior chamfer cut. The cutting block was then removed. Throughout the resection, the collateral ligaments were protected with retractors. We then placed a trial size 8 femur. It was slightly wide, but the narrow fit very nicely, and it fit flush with the distal end of the femur. The drill hole was then made. I then proceeded with the tibial cut. I planned for a cruciate-retaining knee. The guide was placed and set for varus and valgus and for slope. The height was set for approximate 2 mm resection from the medial tibial plateau, which was the lower side. I was happy with the alignment and the amount of resection. The cutting block was then pinned to the proximal tibia. The alignment marie was removed, and the proximal tibia was resected with a reciprocating saw. Again, this was done with retractors protecting the collateral ligaments as well as the posterior cruciate ligament. I then proceeded to evaluate the flexion and extension gaps. A 10 mm block was placed. The flexion and extension gaps were equal. I then proceeded with resection of the posterior osteophytes. She had very minimal posterior osteophytes. This was done using a curved osteotome. This resected the posterior osteophytes, and posterior capsular stripping was done off the posterior aspect of the femur at this time. The osteophytes were then removed. I then proceeded with resection of the patella. The thickness of the patella was measured using the caliper. The thickness was 22 mm. The thickness of the anticipated patellar dome was taken into account. Resection was then performed and confirmed to be equal in 4 quadrants using a caliper. Approximately 14 mm of bone remained after resection. A 32 x 8.5 mm standard patellar trial was then placed. The holes were drilled, and the trial was then placed. I then proceeded with sizing the tibial plate. A size D tibial plate fit very nicely. I then placed the trial femur, the tibial tray, and the patellar button. A 10 mm trial tibial insert was also placed. The components fit very nicely. She had full extension and flexion. The extension and flexion gaps were equal and stable to both varus and valgus stress. The patella tracked appropriately. The tibial tray rotation was then marked with a Bovie. This was externally rotated properly. I then proceeded with tibial preparation. I first drilled the femoral holes and removed the femoral component. The tibial tray was then set for proper external rotation as well as medial and lateral placement onto the tibia. It was then pinned into place. I then proceeded with punching the keel. I then decided to proceed with cementing of all of our components. The knee was thoroughly irrigated with sterile saline solution via pulsed lavage. The lateral genicular artery was identified and cauterized. All blood was removed from the bone of the tibia, femur, and patella with pulsed lavage. I then proceeded with cementing. Two packs of antibiotic bone cement was prepared on the back table by surgical elastic knitter. I then proceeded with cementing of the tibia first. The cement was impacted in the keel as well as deeply seated into the bone. A second coat of cement was then placed. The tibia was then impacted into place. Excess cement was removed with Yoanna's and Joker's. I then proceeded with cementing of the femoral component. The femoral component was also cemented using standard technique. Excess cement was removed. A 10 mm trial insert was then placed into the knee. It was brought into full extension with a constant axial load placed until the cement had hardened. The patellar component was then cemented. This was held firmly with a compressive device until the cement had dried. When the cement had dried, the knee was taken out of extension. All excess cement was removed from around the prosthesis. I then trialed the knee with a 10 mm insert. Flexion and extension gaps were appropriate. The knee was stable. It came into full extension. I decided to go forward with a 10 mm Medial Congruent cross-linked cruciate- retaining tibial insert. Polyethylene was then placed onto the tibial tray and locked into place. The knee was then reduced. The knee was again further irrigated with sterile saline solution with antibiotic added. The tourniquet was then deflated. Total tourniquet time for the procedure was 49 minutes at 250 mmHg. Final components were Kerry Persona size 8 narrow cruciate-retaining femoral component, size D tibial tray, a 10 mm Medial Congruent cruciate-retaining polyethylene insert, and a 32 x 8.5 mm patella. I then proceeded with closure. Again, the knee was thoroughly irrigated. The quadriceps tendon and the medial retinaculum were reapproximated using #2 Ethibond suture. The extensor mechanism was then closed with a running #2 Quill suture. Subcutaneous tissue was closed with 2-0 Vicryl interrupted suture. Skin was closed with a running 3-0 Quill suture. Dermabond was applied to the incision. Sterile compressive dressing was then applied. All sponge and needle counts were deemed correct prior to closure. The patient tolerated the procedure without apparent complication. She was transferred to recovery room in stable condition. MMANA LAURA / ROHITHN: [id number] /
[2022-05-17] MEDS: ASPIRIN 81 MG PO SCH (20:16)
[2022-05-17] MEDS: GABAPENTIN 300 MG CAP PO SCH (20:16)
[2022-05-17] MEDS: OXYBUTYNIN CHLORIDE 5 MG TAB PO SCH (20:16)
[2022-05-17] MEDS ORDERED: SENNOSIDES-DOCUSATE SODIUM 1 EACH TAB PO SCH (21:00)
[2022-05-17] MEDS ORDERED: MONTELUKAST 10 MG TAB PO SCH (21:00)
[2022-05-17] MEDS ORDERED: GABAPENTIN 300 MG CAP PO SCH (21:00)
[2022-05-17] MEDS ORDERED: ATORVASTATIN 20 MG TAB PO SCH (21:00)
[2022-05-18] MEDS: LACTATED RINGERS 1,000 ML IV SCH ×3 (01:42→09:38)
--- NOTE | 2022-05-18 04:10 | CONS ---
CONSULTATION REASON FOR CONSULTATION: Advice regarding asthma, COPD, and multiple medical issues requested by Orthopedic Surgery. HISTORY OF PRESENT ILLNESS: This is a 77-year-old woman with a past medical history of asthma COPD, underwent left total knee arthroplasty. The patient tolerated the procedure well. There is no history of any fever, rigors, chills. No history of headache, loss of consciousness, or seizures. PAST MEDICAL HISTORY: Reviewed, include asthma, COPD, GERD. HOME MEDICATIONS: Once again reviewed include Tenormin, zyloprim. Doses and rest of medications noted. ALLERGIES: Sulfa. FAMILY HISTORY: History of myocardial infarction. SOCIAL HISTORY: Previous history of smoking. REVIEW OF SYSTEMS: A 14-point review of systems is negative except as mentioned earlier. PHYSICAL EXAMINATION: VITAL SIGNS: Pulse is 55, blood pressure 130/60, respirations 20. HEENT: Conjunctivae normal. NECK: No JVD. CARDIOVASCULAR: S1, S2 muffled. RESPIRATIONS: Breath sounds diminished at the bases. No rhonchi. No crackles. ABDOMEN: Soft, nontender. LEGS: Status post surgery. NERVOUS SYSTEM: No focal deficits. SKIN: No ulcers or rashes. JOINTS: No active deformity or arthropathy. LABS: Reviewed. ASSESSMENT: 1. Status post left total knee joint arthroplasty. 2. Asthma, chronic obstructive pulmonary disease. 3. Multiple medical issues. RECOMMENDATIONS AND DISCUSSION: This is a 77-year-old woman presented after surgery, had multiple complex medical issues. I will review the home medications. Reorder them. Otherwise, I would also recommend DVT prophylaxis. Incentive spirometry. P.r.n. Xanax. See orders for details. We will follow the patient closely. The patient may be asked to follow up with primary physician closely after discharge. MMODL / IJN: [id number] /
[2022-05-18] MEDS: HYDROcodone/APAP 7.5-325MG 1 EACH TAB PO PRN ×2 (05:40→11:02)
[2022-05-18] MEDS ORDERED: PANTOPRAZOLE 40 MG TABLET PO SCH (07:30)
--- NOTE | 2022-05-18 07:42 | P.PN ---
Progress Note - Text Progress Note Date: 05/18/22 ([id number]) Anesthesiology Postop day 1 status post total knee arthroplasty with adductor canal catheter. Patient doing well. VAS 6 out of 10. States tolerable with breakthrough medication Gross strength intact in lower extremity. Afebrile. Denies alterations in sensorium. Catheter site intact. Heart regular rate Lungs nonlabored Abdomen nondistended Assessment: Postop day 1 status post total knee arthroplasty with adductor canal catheter Plan: All questions answered. Maintain catheter 2 more days with patient removal at home. Instructions were given at discharge.
[2022-05-18 08:00] VITALS: BP 156/82; PULSE 71; RESP 18; TEMP 98.6
[2022-05-18] MEDS: GABAPENTIN 300 MG CAP PO SCH (08:38)
[2022-05-18] MEDS: ASPIRIN 81 MG PO SCH (08:39)
[2022-05-18] MEDS: OXYBUTYNIN CHLORIDE 5 MG TAB PO SCH (08:42)
[2022-05-18] MEDS ORDERED: NON FORMULARY DRUG (Omega-3 Fatty Acids/Fish Oil [Fish Oil 1,000 Mg Softgel] 1 EACH Capsul PO SCH (09:00)
[2022-05-18] MEDS ORDERED: CHOLECALCIFEROL 25 MCG (1000 IU) TABLET PO SCH ×2 (09:00)
[2022-05-18] MEDS ORDERED: PARoxetine 10 MG TAB PO SCH (09:00)
[2022-05-18] MEDS ORDERED: allopurinoL 100 MG TAB PO SCH (09:00)
[2022-05-18] MEDS ORDERED: atenoloL 50 MG TAB PO SCH (09:00)
[2022-05-18 10:54] LABS: Basophils # (A) 0.06 X 10*3/uL (0.00-0.10); Basophils % (A) 0.6 %; Eosinophils # (A) 0.03 X 10*3/uL (0.04-0.35); Eosinophils % (A) 0.3 %; HCT 35.8 % (37.2-46.3); HGB 11.6 g/dL (12.0-15.0); Immature Grans, Automated 0.4 %; Lymphocytes # (A) 0.97 X 10*3/uL (0.90-5.00); Lymphocytes % (A) 9.4 %; MCH 29.1 pg (27.0-32.0); MCHC 32.4 g/dL (32.0-37.0); MCV 89.7 fL (80.0-97.0); Mean Platelet Volume 10.5 fL (9.5-12.2); Monocytes # (A) 1.19 X 10*3/uL (0.20-1.00); Monocytes % (A) 11.6 %; NRBC Per 100 WBC 0 /100 WBCS (0.0-0.0); Neutrophils % (A) 77.7 %; Platelet Count 173 X 10*3/uL (140-440); RBC 3.99 X 10*6/uL (4.10-5.20); RDW 13.8 % (11.5-14.5); WBC 10.29 X 10*3/uL (4.50-10.00)
--- NOTE | 2022-05-18 11:00 | P.DS ---
Providers Expected date of discharge: 05/18/22 Attending physician: Manuel Blake Consults: 05/17/22 09:53 Consult Physician Routine Consulting Provider: Dayana Jennings Consult Reason/Comments: post op medical management Do you want consulting provider notified?: Yes Primary care physician: James Rose - Discharge Diagnosis(es) (1) Status post total left knee replacement Patient was admitted to the OR on 05/17/22 to undergo a left total knee arthroplasty. She had failed conservative measures as an outpatient and desired to proceed with elective surgery after given informed consent. She underwent the above procedure which he tolerated well without complication. Postoperative hospital course has remained without complication. On day of discharge she is afebrile, vital signs stable, labs within acceptable ranges, tolerating by mouth meds and diet, voiding without difficulty, positive flatus, denies abdominal pain or calf pain, pain is controlled on oral pain medication and has no new com plaints. Wound is benign, neurovascular status is intact, calf is soft and nontender, abdomen soft and nontender. Review of systems is negative for numbness, tingling, fever, chills, chest pain, shortness of breath, nausea, vomiting, dizziness, headaches, slurred speech or other. Current Visit: Yes Status: Acute Priority: Medium Procedures: Left TKA Patient Condition at Discharge: Good Plan - Discharge Summary Discharge Rx Participant: No New Discharge Prescriptions: New HYDROcodone/APAP 7.5-325MG [[place] 7.5-325] 1 - 2 each PO Q6HR PRN #42 tab PRN Reason: Pain Aspirin [Adult Low Dose Aspirin EC] 81 mg PO BID #60 tab Docusate [Colace] 100 mg PO BID #60 capsule No Action Montelukast [Singulair] 10 mg PO HS allopurinoL [Zyloprim] 100 mg PO DAILY Cholecalciferol [Vitamin D3 (25 Mcg = 1000 Iu)] 1,000 unit PO DAILY Omeprazole 20 mg PO QAM Gabapentin [Neurontin] 300 mg PO BID Oxybutynin Chloride [Ditropan] 5 mg PO BID atenoloL [Tenormin] 50 mg PO QAM [place]-3 Fatty Acids/Fish Oil [Fish Oil 1,000 mg Softgel] 1 each PO DAILY Aspirin [Adult Low Dose Aspirin EC] 81 mg PO DAILY Albuterol Inhaler [Ventolin Hfa Inhaler] 1 - 2 puff INHALATION RT-Q6H PRN PRN Reason: Shortness Of Breath Sucralfate [Carafate] 1 gm PO DAILY PRN PRN Reason: NAUSEA/GERD Gabapentin [Neurontin] 300 mg PO BID Rosuvastatin [Crestor] 10 mg PO HS PARoxetine HCL 30 mg PO QAM Meclizine HCl [Dramamine] 25 mg PO DIRECTED PRN PRN Reason: NAUSEA, GERD Discharge Medication List Montelukast [Singulair] 10 mg PO HS 07/22/14 [History] allopurinoL [Zyloprim] 100 mg PO DAILY 07/22/14 [History] Cholecalciferol [Vitamin D3 (25 Mcg = 1000 Iu)] 1,000 unit PO DAILY 02/16/19 [History] Gabapentin [Neurontin] 300 mg PO BID 02/16/19 [History] Omeprazole 20 mg PO QAM 02/16/19 [History] Albuterol Inhaler [Ventolin Hfa Inhaler] 1 - 2 puff INHALATION RT-Q6H PRN 06/01/19 [History] Aspirin [Adult Low Dose Aspirin EC] 81 mg PO DAILY 06/01/19 [History] [place]-3 Fatty Acids/Fish Oil [Fish Oil 1,000 mg Softgel] 1 each PO DAILY 06/01/19 [History] Oxybutynin Chloride [Ditropan] 5 mg PO BID 06/01/19 [History] atenoloL [Tenormin] 50 mg PO QAM 06/01/19 [History] Gabapentin [Neurontin] 300 mg PO BID 05/14/22 [History] Meclizine HCl [Dramamine] 25 mg PO DIRECTED PRN 05/14/22 [History] PARoxetine HCL 30 mg PO QAM 05/14/22 [History] Rosuvastatin [Crestor] 10 mg PO HS 05/14/22 [History] Sucralfate [Carafate] 1 gm PO DAILY PRN 05/14/22 [History] Aspirin [Adult Low Dose Aspirin EC] 81 mg PO BID #60 tab 05/18/22 [Rx] Docusate [Colace] 100 mg PO BID #60 capsule 05/18/22 [Rx] HYDROcodone/APAP 7.5-325MG [[place] 7.5-325] 1 - 2 each PO Q6HR PRN #42 tab 05/18/22 [Rx] Follow up Appointment(s)/Referral(s): James Rose MD [Primary Care Provider] - 1 Week [facility], [NON-STAFF] - As Needed Manuel Blake MD [STAFF PHYSICIAN] - 05/29/22 2:15 pm Discharge Disposition: HOME WITH HOME HEALTH SERVICES
[2022-05-18] MEDS ORDERED: MULTIVITAMINS, THERA 1 EACH TAB PO SCH (12:00)
--- NOTE | 2022-05-19 09:53 | PN ---
PROGRESS NOTE SUBJECTIVE: This 77-year-old woman, who was admitted after left total knee arthroplasty, improving significantly. No chest pain. No palpitations. No fever. OBJECTIVE: VITAL SIGNS: Pulse is 65, blood pressure 158/89, respirations 17. HEENT: Conjunctivae are normal. NECK: No JVD. CARDIOVASCULAR: S1 and S2. RESPIRATORY: Breath sounds diminished at the bases. ABDOMEN: Soft. LEGS: Status post knee surgery. NERVOUS SYSTEM: Nonfocal. LABORATORY DATA: WBC 10.29. ASSESSMENT: 1. Status post left total knee joint arthroplasty. 2. Asthma, chronic obstructive pulmonary disease. 3. Multiple medical issues. RECOMMENDATIONS: I recommend to continue current medications and symptomatic treatment. Otherwise, incentive spirometry. Resume the home medications. Follow up with the primary physician. Rest of the recommendations per Orthopedic surgery. DVT prophylaxis. MMODL / IJN: [id number] /
== END 2022-05-18 13:56 | disposition home health service (06) ==
LOC: OR 06:35 → 4SSUR 12:34 → OR 05-18 13:56
PROVIDERS: ATTEND Orthopaedic Surgery Sports Medicine
DX: M17.12 Unilateral primary osteoarthritis, left knee (principal); M25.762 Osteophyte, left knee; G89.18 Other acute postprocedural pain; I10 Essential (primary) hypertension; E78.5 Hyperlipidemia, unspecified; R06.02 Shortness of breath; Z88.2 Allergy status to sulfonamides; Z98.891 History of uterine scar from previous surgery; Z90.89 Acquired absence of other organs; Z90.49 Acquired absence of other specified parts of digestive tract; Z87.442 Personal history of urinary calculi; F17.200 Nicotine dependence, unspecified, uncomplicated; Z86.59 Personal history of other mental and behavioral disorders; Z82.49 Family history of ischemic heart disease and other diseases of the circulatory system
CPT/HCPCS: 97161; 64999; 64448; 76942; 80053; 85025; 88300; 73560; 27447; C1776; C1713; J2250; J1100; J0690 ×3; J2405; J3010; J2795

== ENCOUNTER 2022-09-03 16:44 | Emergency (ER) | payer MEDICARE, OTHER ==
--- NOTE | 2022-09-03 17:59 | XR ---
EXAMINATION TYPE: XR chest 2V DATE OF EXAM: 09/03/2022 COMPARISON: 02/16/2019 HISTORY: Short of breath TECHNIQUE: FINDINGS: Heart is normal. Lungs are clear. Diaphragm is normal. Bony thorax appears normal. IMPRESSION: Normal chest. No change.
--- NOTE | 2022-09-03 18:36 | ED ---
General Adult HPI - General Source: patient, RN notes reviewed Mode of arrival: wheelchair Limitations: no limitations <Adilia Espitia - Last Filed: 09/03/22 20:39> <Harley Reyes - Last Filed: 09/04/22 04:09> - General Chief complaint: Shortness of Breath Stated complaint: Nausea & Diarrhea, MILADY Time Seen by Provider: 09/03/22 18:31 - History of Present Illness Initial comments: Medical Screening Exam: Patient is a 77-year-old female who presents to the emergency department with a chief complaint of nausea. Patient states for the past year she has had intermittent episodes of nausea, vomiting, and diarrhea that last 1-2 weeks. This round started Saturday. Patient feels very nauseous with 5-10 episodes of diarrhea a day, watery, nonbloody. No vomiting. No recent travel, antibiotic use, or history of C. diff. Patient admits to mild abdominal pain in the middle of her stomach, cramping in nature. States she has been to the emergency department several times for this issue with no diagnosis which is frustrating her. She was prescribed Zofran by her PCP which no longer works for her. Reports normal upper and lower GI studies a few months ago. Patient also expresses concern with exertional shortness of breath. She reports minimal cough and intermittent chills with no other upper respiratory symptoms. No chest pain. Reports Covid-19 infection in mid July. (Adilia Espitia) this is a 77-year-old female with a past medical history including COPD, hypertension and previous COVID-19 infection on August 12 presents emergency department for nausea, vomiting and shortness of breath. The patient did state that she has been "sick" over the last 1 year with nausea and vomiting however stated that over the last 3 days she does have increasing shortness of breath which made her come to the emergency department for evaluation. The patient was however resting in bed comfortably. The patient did state that she was given Paxlovid on August 12 and did not have any changes in her symptoms. The patient was however resting in bed comfortably without any further acute pain or distress at this time. (Harley Reyes) - Related Data Home Medications Medication Instructions Recorded Confirmed Montelukast [Singulair] 10 mg PO HS 07/22/14 05/17/22 allopurinoL [Zyloprim] 100 mg PO DAILY 07/22/14 05/17/22 Cholecalciferol [Vitamin D3 (25 1,000 unit PO DAILY 02/16/19 05/14/22 Mcg = 1000 Iu)] Gabapentin [Neurontin] 300 mg PO BID 02/16/19 05/17/22 Omeprazole 20 mg PO QAM 02/16/19 05/17/22 Albuterol Inhaler [Ventolin Hfa 1 - 2 puff INHALATION RT-Q6H PRN 06/01/19 05/17/22 Inhaler] Aspirin [Adult Low Dose Aspirin EC] 81 mg PO DAILY 06/01/19 05/14/22 [place]-3 Fatty Acids/Fish Oil [Fish 1 each PO DAILY 06/01/19 05/14/22 Oil 1,000 mg Softgel] Oxybutynin Chloride [Ditropan] 5 mg PO BID 06/01/19 05/17/22 atenoloL [Tenormin] 50 mg PO QAM 06/01/19 05/17/22 Gabapentin [Neurontin] 300 mg PO BID 05/14/22 05/17/22 Meclizine HCl [Dramamine] 25 mg PO DIRECTED PRN 05/14/22 05/17/22 PARoxetine HCL 30 mg PO QAM 05/14/22 05/17/22 Rosuvastatin [Crestor] 10 mg PO HS 05/14/22 05/17/22 Sucralfate [Carafate] 1 gm PO DAILY PRN 05/14/22 05/17/22 Previous Rx's Medication Instructions Recorded Aspirin [Adult Low Dose Aspirin EC] 81 mg PO BID #60 tab 05/18/22 Docusate [Colace] 100 mg PO BID #60 capsule 05/18/22 HYDROcodone/APAP 7.5-325MG [[place] 1 - 2 each PO Q6HR PRN #42 tab 05/18/22 7.5-325] Allergies Allergy/AdvReac Type Severity Reaction Status Date / Time Sulfa (Sulfonamide Allergy Rash/Hives Verified 05/17/22 07:15 Antibiotics) Review of Systems ROS Other: All systems not noted in ROS Statement are negative. <Adilia Espitia - Last Filed: 09/03/22 20:39> ROS Other: All systems not noted in ROS Statement are negative. <Harley Reyes - Last Filed: 09/04/22 04:09> ROS Statement: Those systems with pertinent positive or pertinent negative responses have been documented in the HPI. Past Medical History Past Medical History: Asthma, COPD, GERD/Reflux, Hyperlipidemia, Hypertension, Osteoarthritis (OA), Renal Disease Additional Past Medical History / Comment(s): Kidney stone. Gout bilateral feet. Urinary incontinence. RENAL DISEASE PER DR. ROSE CONSULTATION. History of Any Multi-Drug Resistant Organisms: None Reported Past Surgical History: Appendectomy, Back Surgery, Section, Cholecystectomy, Orthopedic Surgery Additional Past Surgical History / Comment(s): L/R LITHOTRIPSIES. LEFT ANKLE PLATE SCREW. LUMBAR EPIDURAL PAIN INJECTIONS. 6-8-16 laminectomy. CATARACT -BILATERAL WITH LENS IMPLANT. LASER TREATMENT OF R EYE D/T "FILM". Ramiro carpal tunnel. Past Anesthesia/Blood Transfusion Reactions: Motion Sickness Past Psychological History: Depression Smoking Status: Former smoker Past Alcohol Use History: Rare Past Drug Use History: Marijuana - Past Family History Mother Family Medical History: Myocardial Infarction (NV) Additional Family Medical History / Comment(s): Mother of a NV at the age of 75yrs. Father Family Medical History: CVA/TIA Additional Family Medical History / Comment(s): Father of a CVA at the age of 82 yrs. Sister(s) Family Medical History: Vascular Disorder Additional Family Medical History / Comment(s): Sister from an aortic d issection at the age of 56yrs. Brother(s) Family Medical History: Cancer Daughter(s) Family Medical History: No Reported History <Adilia Espitia - Last Filed: 09/03/22 20:39> General Exam Limitations: no limitations <Adilia Espitia - Last Filed: 09/03/22 20:39> Limitations: no limitations General appearance: alert, in no apparent distress, obese Head exam: Present: atraumatic, normocephalic, normal inspection Eye exam: Present: normal appearance, PERRL Pupils: Present: normal accommodation ENT exam: Present: normal exam, normal oropharynx, mucous membranes moist Neck exam: Present: normal inspection, full ROM Respiratory exam: Present: normal lung sounds bilaterally Cardiovascular Exam: Present: regular rate, normal rhythm, normal heart sounds GI/Abdominal exam: Present: soft, normal bowel sounds Extremities exam: Present: normal inspection, full ROM Back exam: Present: normal inspection, full ROM Neurological exam: Present: alert, oriented X3, CN II-XII intact Psychiatric exam: Present: normal affect, normal mood Skin exam: Present: warm, dry <Harley Reyes - Last Filed: 09/04/22 04:09> Course Vital Signs 09/03/22 09/03/22 09/03/22 17:12 20:09 21:06 Temperature 97.7 F 98.5 F Pulse Rate 70 85 75 Respiratory 16 24 18 Rate Blood Pressure 136/84 130/68 143/98 O2 Sat by Pulse 98 96 99 Oximetry 09/03/22 22:04 Temperature 98.2 F Pulse Rate 68 Respiratory 16 Rate Blood Pressure 143/82 O2 Sat by Pulse 96 Oximetry EKG Findings - EKG Comments: EKG Findings:: An EKG was obtained and was interpreted by myself showing a rate of 76, MS interval 170, QRS duration of 77 and QTC of 408. This EKG showed a normal sinus rhythm with no ST segment elevation or depression noted. <Harley Reyes - Last Filed: 09/04/22 04:09> Medical Decision Making - Lab Data Result diagrams: 09/03/22 19:53 09/03/22 19:53 <Adilia Espitia - Last Filed: 09/03/22 20:39> - Lab Data Result diagrams: 09/03/22 19:53 09/03/22 19:53 <Harley Reyes - Last Filed: 09/04/22 04:09> - Medical Decision Making Was pt. sent in by a medical professional or institution (, PA, DIESEL ENGINE OPERATOR, urgent care, hospital, or residential...) When possible be specific @ -No Did you speak to anyone other than the patient for history (EMS, parent, family, police, friend...)? What history was obtained from this source @ -Yes, patient's daughter Did you review nursing and triage notes (agree or disagree)? Why? @ -I reviewed and agree with nursing and triage notes Were old charts reviewed (outside hosp., previous admission, EMS record, old EKG, old radiological studies, urgent care reports/EKG's, residential records)? Report findings @ -No old charts were reviewed Differential Diagnosis (chest pain, altered mental status, abdominal pain women, abdominal pain men, vaginal bleeding, weakness, fever, dyspnea, syncope, headache, dizziness, GI bleed, back pain, seizure, CVA, palpatations, mental health)? @ -COVID-19, influenza, pneumonia, PE, ACS EKG interpreted by me (3pts min.). @ -As above X-rays interpreted by me (1pt min.). @ -Chest x-ray was obtained and was interpreted by myself showing no acute process. CT interpreted by me (1pt min.). @ -CT of the chest was obtained and was interpreted by myself and showed no evidence of PE. There was mild aneurysm of the ascending aorta. There was no suspicious pulmonary mass. U/S interpreted by me (1pt. min.). @ -None done What testing was considered but not performed or refused? (CT, X-rays, U/S, labs )? Why? @ -None What meds were considered but not given or refused? Why? @ -None Did you discuss the management of the patient with other professionals (professionals i.e. , PA, DIESEL ENGINE OPERATOR, lab, RT, psych nurse, social service assistant, invasive manager, teacher, airfield services officer, protective services case worker)? Give summary @ -No Was smoking cessation discussed for >3mins.? @ -Yes Was critical care preformed (if so, how long)? @ -No Were there social determinants of health that impacted care today? How? (Homelessness, low income, unemployed, alcoholism, drug addiction, transportation, low edu. Level, literacy, decrease access to med. care, senior living, rehab)? @ -No Was there de-escalation of care discussed even if they declined (Discuss DNR or withdrawal of care, Hospice)? DNR status @ -No What co-morbidities impacted this encounter? (DM, HTN, Smoking, COPD, CAD, Cancer, CVA, ARF, Chemo, Hep., AIDS, mental health diagnosis, sleep apnea, morbid obesity)? @ -COPD, hypertension Was patient admitted / discharged? Hospital course, mention meds given and route, prescriptions, significant lab abnormalities, going to OR and other perti nent info. @ -The patient was seen and evaluated emergency department. Physical exam, the patient was resting in bed without any acute distress. Vital signs were stable. Laboratory workup was obtained and showed COVID-19 positive however the patient's d-dimer was elevated. Because of this elevated d-dimer a CTA of the chest was obtained. All workup was negative including a CT of the chest. The patient likely had some shortness of breath secondary to the COVID-19 infection. The patient was advised to follow-up with her primary care physician for further workup and evaluation and to report back to the emergency department if she had worsening shortness of breath or difficulty in breathing. The patient was advised to purchase a pulse oximeter at home and to report back to the emergency department if her pulse ox was less than 88% and was consistent. Both the patient and her daughter were agreeable to this and all other questions were answered. The patient was discharged home in stable condition. Undiagnosed new problem with uncertain prognosis? @ -No Drug Therapy requiring intensive monitoring for toxicity (Heparin, Nitro, Insulin, Cardizem)? @ -No Were any procedures done? @ -No Diagnosis/symptom? @ -COVID-19 Acute, or Chronic, or Acute on Chronic? @ -Acute Uncomplicated (without systemic symptoms) or Complicated (systemic symptoms)? @ -Uncomplicated Side effects of treatment? @ -No Exacerbation, Progression, or Severe Exacerbation? @ -No Poses a threat to life or bodily function? How? (Chest pain, [place], NV, pneumonia, PE, COPD, DKA, ARF, appy, cholecystitis, CVA, Diverticulitis, Homicidal, Suicidal, threat to staff... and all critical care pts) @ -No (Harley Reyes) - Lab Data Lab Results 09/03/22 09/03/22 09/03/22 Range/Units 17:20 19:53 19:53 WBC 10.8 H (3.8-10.6) k/uL RBC 5.00 (3.80-5.40) m/uL Hgb 14.4 (11.4-16.0) gm/dL Hct 42.9 (34.0-46.0) % MCV 85.8 (80.0-100.0) fL MCH 28.8 (25.0-35.0) pg MCHC 33.6 (31.0-37.0) g/dL RDW 15.3 (11.5-15.5) % Plt Count 215 (150-450) k/uL MPV 7.9 Neutrophils % 76 % Lymphocytes % 14 % Monocytes % 7 % Eosinophils % 1 % Basophils % 1 % Neutrophils # 8.1 H (1.3-7.7) k/uL Lymphocytes # 1.5 (1.0-4.8) k/uL Monocytes # 0.8 (0-1.0) k/uL Eosinophils # 0.1 (0-0.7) k/uL Basophils # 0.1 (0-0.2) k/uL PT 10.3 (9.0-12.0) sec INR 1.0 (<1.2) APTT 23.7 (22.0-30.0) sec D-Dimer 1.28 H (<0.60) mg/L FEU Sodium (137-145) mmol/L Potassium (3.5-5.1) mmol/L Chloride (98-107) mmol/L Carbon Dioxide (22-30) mmol/L Anion Gap mmol/L BUN (7-17) mg/dL Creatinine (0.52-1.04) mg/dL Est GFR (CKD-EPI)AfAm (>60 ml/min/1.73 sqM) Est GFR (CKD-EPI)NonAf (>60 ml/min/1.73 sqM) Glucose (74-99) mg/dL Calcium (8.4-10.2) mg/dL Magnesium (1.6-2.3) mg/dL Total Bilirubin (0.2-1.3) mg/dL AST (14-36) U/L ALT (4-34) U/L Alkaline Phosphatase (38-126) U/L Troponin I (0.000-0.034) ng/mL NT-Pro-B Natriuret Pep pg/mL Total Protein (6.3-8.2) g/dL Albumin (3.5-5.0) g/dL Influenza Type A (PCR) Not Detected (Not Detectd) Influenza Type B (PCR) Not Detected (Not Detectd) RSV (PCR) Not Detected (Not Detectd) SARS-CoV-2 (PCR) Detected A (Not Detectd) 09/03/22 09/03/22 09/03/22 Range/Units 19:53 19:53 19:53 WBC (3.8-10.6) k/uL RBC (3.80-5.40) m/uL Hgb (11.4-16.0) gm/dL Hct (34.0-46.0) % MCV (80.0-100.0) fL MCH (25.0-35.0) pg MCHC (31.0-37.0) g/dL RDW (11.5-15.5) % Plt Count (150-450) k/uL MPV Neutrophils % % Lymphocytes % % Monocytes % % Eosinophils % % Basophils % % Neutrophils # (1.3-7.7) k/uL Lymphocytes # (1.0-4.8) k/uL Monocytes # (0-1.0) k/uL Eosinophils # (0-0.7) k/uL Basophils # (0-0.2) k/uL PT (9.0-12.0) sec INR (<1.2) APTT (22.0-30.0) sec D-Dimer (<0.60) mg/L FEU Sodium 139 (137-145) mmol/L Potassium 4.1 (3.5-5.1) mmol/L Chloride 103 (98-107) mmol/L Carbon Dioxide 22 (22-30) mmol/L Anion Gap 14 mmol/L BUN 18 H (7-17) mg/dL Creatinine 1.57 H (0.52-1.04) mg/dL Est GFR (CKD-EPI)AfAm 37 (>60 ml/min/1.73 sqM) Est GFR (CKD-EPI)NonAf 32 (>60 ml/min/1.73 sqM) Glucose 110 H (74-99) mg/dL Calcium 10.1 (8.4-10.2) mg/dL Magnesium 1.9 (1.6-2.3) mg/dL Total Bilirubin 1.0 (0.2-1.3) mg/dL AST 21 (14-36) U/L ALT 19 (4-34) U/L Alkaline Phosphatase 119 (38-126) U/L Troponin I <0.012 (0.000-0.034) ng/mL NT-Pro-B Natriuret Pep 791 pg/mL Total Protein 7.8 (6.3-8.2) g/dL Albumin 4.4 (3.5-5.0) g/dL Influenza Type A (PCR) (Not Detectd) Influenza Type B (PCR) (Not Detectd) RSV (PCR) (Not Detectd) SARS-CoV-2 (PCR) (Not Detectd) Disposition <Adilia Esptiia - Last Filed: 09/03/22 20:39> Is patient prescribed a controlled substance at d/c from ED?: No Time of Disposition: 23:40 <Harley Reyes - Last Filed: 09/04/22 04:09> Clinical Impression: COVID-19 Disposition: HOME SELF-CARE Condition: Stable Instructions (If sedation given, give patient instructions): COVID-19 (Coronavirus Disease 2019) (ED) Referrals: James Rose MD [Primary Care Provider] - 1-2 days
[2022-09-03 20:03] LABS: Basophils # (A) 0.1 k/uL (0-0.2); Basophils % (A) 1 %; Eosinophils # (A) 0.1 k/uL (0-0.7); Eosinophils % (A) 1 %; HCT 42.9 % (34.0-46.0); HGB 14.4 gm/dL (11.4-16.0); Lymphocytes # (A) 1.5 k/uL (1.0-4.8); Lymphocytes % (A) 14 %; MCH 28.8 pg (25.0-35.0); MCHC 33.6 g/dL (31.0-37.0); MCV 85.8 fL (80.0-100.0); Mean Platelet Volume 7.9; Monocytes # (A) 0.8 k/uL (0-1.0); Monocytes % (A) 7 %; Neutrophils # (A) 8.1 k/uL (1.3-7.7); Neutrophils % (A) 76 %; Platelet Count 215 k/uL (150-450); RDW 15.3 % (11.5-15.5); WBC 10.8 k/uL (3.8-10.6)
[2022-09-03 20:15] LABS: Albumin 4.4 g/dL (3.5-5.0); Calcium 10.1 mg/dL (8.4-10.2); Magnesium 1.9 mg/dL (1.6-2.3); Potassium 4.1 mmol/L (3.5-5.1); Total Protein 7.8 g/dL (6.3-8.2)
[2022-09-03 20:20] LABS: Partial Thromboplastin Time 23.7 sec (22.0-30.0); Prothrombin Time 10.3 sec (9.0-12.0)
[2022-09-03] MEDS ORDERED: SODIUM CHLORIDE 0.9% 1,000 ML IV ONE (21:35)
[2022-09-03] MEDS ORDERED: methylPREDNISolone SOD SUCCI 125 MG/2 ML VIAL IV STA (21:35)
[2022-09-03] MEDS ORDERED: diphenhydrAMINE 50 MG/ML 1 ML VIAL IVP STA (21:35)
[2022-09-03 22:06] VITALS: BP 143/82; PULSE 68; RESP 16; TEMP 98.2
--- NOTE | 2022-09-03 23:10 | CT ---
EXAMINATION TYPE: CT angio chest DATE OF EXAM: 09/03/2022 COMPARISON: None HISTORY: elevated d-dimer CT DLP: 518.5 mGycm Automated exposure control for dose reduction was used. CONTRAST: Performed with IV Contrast, patient injected with 80 mL of Isovue 370. There are Three-D postprocessed images. The lungs are clear of consolidation. There is minimal reticular interstitial subpleural density in t he posterior lung arcos. Heart size is fairly normal. No pericardial effusion. There is plaque forma tion in the thoracic aorta. There is 4.3 cm aneurysm of the ascending aorta. No evidence of dissectio n. No mediastinal adenopathy. There are no hilar masses. There is normal contrast opacification of the pulmonary arteries. No filling defect. Thoracic spine is intact. There is hypertrophic osteophyte formation anteriorly throughout the mid an d lower thoracic spine. There is bridging osteophyte formation in the lower cervical spine. IMPRESSION: No evidence of pulmonary embolism. Mild aneurysm of the ascending aorta. No suspicious pulmonary mass .
== END 2022-09-04 00:03 | disposition home or self-care (01) ==
LOC: EC 16:44
DX: U07.1 COVID-19 (principal); J45.909 Unspecified asthma, uncomplicated; I12.9 Hypertensive chronic kidney disease with stage 1 through stage 4 chronic kidney disease, or unspecified chronic kidney disease; J44.9 Chronic obstructive pulmonary disease, unspecified; K21.9 Gastro-esophageal reflux disease without esophagitis; E78.5 Hyperlipidemia, unspecified; M19.90 Unspecified osteoarthritis, unspecified site; F32.A Depression, unspecified; F12.90 Cannabis use, unspecified, uncomplicated; N18.9 Chronic kidney disease, unspecified; Z87.891 Personal history of nicotine dependence; Z79.899 Other long term (current) drug therapy; Z79.82 Long term (current) use of aspirin; Z20.822 Contact with and (suspected) exposure to COVID-19; Z88.2 Allergy status to sulfonamides
CPT/HCPCS: 36415; 93005; 85379; 83880; 80053; 83735; 84484; 85025; 85610; 85730; 87636; 71046; 71275; 99285; 96374; 96375; 96361; J1200; J2930; Q9967

== ENCOUNTER → 2022-11-27 | Outpatient (CLI) | payer MEDICARE ==
--- NOTE | 2022-11-27 19:19 | US ---
EXAMINATION TYPE: US kidneys/renal and bladder DATE OF EXAM: 11/27/2022 COMPARISON: CT abdomen and pelvis October 10, 2022 CLINICAL HISTORY: Q61.9 CYSTIC KIDNEY DISEASE. CKD EXAM MEASUREMENTS: Right Kidney: 11.0 x 4.2 x 4.6 cm Left Kidney: 11.4 x 5.9 x 4.9 cm Right Kidney: stone seen = 1.0 x 1.0cm, 5.3 x 4.8 x 5.6cm inferior pole cyst Left Kidney: exophytic lesion seen, hypoechoic 1.5 x 1.3 x 1.4cm Bladder: wnl Marked cortical thinning in the right kidney redemonstrated. Persistent near 1.0 cm nonobstructing s hadowing calculus mid pole level. There is narrowed by exophytic 5.6 cm thin-walled cyst redemonstrat ed. The urinary bladder is adequately distended. Bilateral ureteral jets are not seen. Left kidney s hows increased cortical echogenicity and incidental 1.4 cm thin-walled cyst. No hydronephrosis seen b ilaterally. IMPRESSION: Evidence of chronic medical renal disease greater in the right kidney. No hydronephrosis seen bilaterally.
== END | disposition home or self-care (01) ==
LOC: RADUSWWP 14:51
PROVIDERS: ATTEND Family Medicine
DX: N28.89 Other specified disorders of kidney and ureter (principal); Q61.9 Cystic kidney disease, unspecified
CPT/HCPCS: 76770

== ENCOUNTER → 2023-01-31 | Outpatient (CLI) | payer MEDICARE ==
--- NOTE | 2023-01-31 12:13 | FL ---
INDICATION: Patient age:Female; 77 years old; Reason for study: K58.9 irritable bowel syndrome; PHH. COMPARISON: CT abdomen pelvis 10/10/2022 TECHNIQUE: The procedure was explained and patient history elicited. All patient questions were ans wered prior to start of procedure. A shovel engineer radiograph of the abdomen was also reviewed. Multiple flu oroscopic spot images of the esophagus, stomach and duodenum were obtained following ingestion of liq uid barium and EZ-gas crystals. After the completion of the upper gastrointestinal examination, a de tailed small bowel examination was performed. The patient was asked to ingest additional liquid martine um and incremental frontal abdominal radiographs were then taken until contrast was visualized in the cecum. Fluoroscopic time: 29 seconds Fluoroscopic images: 160 Radiographs taken: 8 Total DAP: Unable to obtain due to technical difficulty. FINDINGS: Upper GI examination: The shovel engineer abdominal radiograph demonstrates a normal bowel gas pattern without dilated loops of small or large bowel. There is no evidence for organomegaly or pneumoperitoneum. Left-sided pelvic phleb oliths. No acute osseous adenopathy. Lumbar fusion hardware demonstrated. Right renal calculi largest in the inferior pole measuring up to 1 cm corresponding to prior CT. The esophagus appears unremarkable without evidence of focal stricture, ulceration or abnormal outpou alva. Mild tertiary contractions of the esophagus demonstrated. No hiatal hernia was visualized. N o evidence of gastroesophageal reflux was seen when the patient was instructed to bear down. The stom ach and duodenum demonstrate a normal course and contour. There is no evidence of focal gastric or d uodenal ulceration, stricture, or abnormal outpouching. Small bowel mucosal folds are felt to be with in normal limits. Detailed small bowel examination: Contrast is seen extending from the duodenojejunal junction into the cecum after 75 minutes, which is within the expected time period. The small bowel follows normal distribution and contour without an y evidence of extraluminal or intraluminal irregularity. There is no displacement of bowel loops or extraluminal extravasation of contrast material. IMPRESSION: 1. Normal upper gastrointestinal examination. 2. Normal detailed small bowel examination.
== END | disposition home or self-care (01) ==
LOC: RADFLMAIN 08:48
PROVIDERS: ATTEND Internal Medicine Gastroenterology
DX: K58.9 Irritable bowel syndrome, unspecified (principal)
CPT/HCPCS: 74240; 74248

== ENCOUNTER → 2023-02-11 | Outpatient (CLI) | payer MEDICARE ==
[2023-02-11 14:19] LABS: African American GFR (CKD) 54 (>60 ml/min/1.73 sqM); Blood Urea Nitrogen 16 mg/dL (7-17); Non-African American GFR(CKD) 46 (>60 ml/min/1.73 sqM)
--- NOTE | 2023-02-11 15:42 | CT ---
EXAMINATION TYPE: CT angio abdomen pelvis DATE OF EXAM: 02/11/2023 COMPARISON: 10/10/2022 HISTORY: eval on AAA CT DLP: 1764.20 mGycm CONTRAST: CTA abdominal aorta with 3-D reconstruction is performed without Oral Contrast and without and with I V Contrast, patient injected with 80 mL of Isovue 370. Contrast CTA of the thoracic and abdominal aorta was performed from the lung bases through the base o f the pelvis. 3-D reconstruction imaging obtained at a separate workstation. ABDOMINAL AORTA: There is aneurysm at the aortic hiatus measuring 3.4 cm AP dimension with mural thro mbus. The remainder of the abdominal aorta is of normal caliber although ectatic. Atheromatous change s noted. Major abdominal branch vessels including the celiac and SMA vessels are patent as are the re nal arteries. Common iliac arteries are also patent with atheromatous change seen. Internal and exter nal iliac arteries are patent as well. LIVER/GB- No significant abnormality is seen. PANCREAS- No significant abnormality is seen. SPLEEN-splenomegaly measuring 14.3 cm. ADRENALS-adrenal thickening compatible with hyperplasia. KIDNEYS/BLADDER-renal cystic changes redemonstrated. Renal parenchymal thinning with atrophic changes seen. Right renal calculus measuring 8 cm. Renal cystic changes identified. BOWEL- No Significant abnormality GENITAL ORGANS: No gross abnormality seen. LYMPH NODES- No greater than 1cm abdominal or pelvic lymph nodes are appreciated. OSSEOUS STRUCTURES-postoperative changes of lumbar fusion. OTHER- No significant abnormality is seen. IMPRESSION- 1. Mild aneurysm at the level of the aortic hiatus. Otherwise no aneurysm seen. 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
== END | disposition home or self-care (01) ==
LOC: RADCTMAIN 13:39
PROVIDERS: ATTEND Internal Medicine Geriatric Medicine
DX: K55.1 Chronic vascular disorders of intestine (principal); I71.40 Abdominal aortic aneurysm, without rupture, unspecified
CPT/HCPCS: 82565; 84520; 36415; 74174; Q9967

== ENCOUNTER 2023-07-05 14:57 | Emergency (ER) | payer MEDICARE ==
[2023-07-05 15:16] VITALS: TEMP 97.3
[2023-07-05] MEDS ORDERED: SODIUM CHLORIDE 0.9% 1,000 ML IV STA (15:32)
--- NOTE | 2023-07-05 15:38 | ED ---
General Adult HPI - General Chief complaint: Nausea/Vomiting/Diarrhea Stated complaint: Abd/back pain Source: patient, family, RN notes reviewed, old records reviewed Mode of arrival: ambulatory Limitations: no limitations - History of Present Illness Initial comments: 78-year-old female presenting for evaluation of nausea, chronic diarrhea. She states she's been dealing with this for years. She is had endoscopy and colonoscopy. She is followed with multiple specialists. She takes Zofran and Reglan for symptoms of nausea at home. She denies significant abdominal pain b ut does report some flank pain. She also has history of chronic kidney disease. She states she has not been able to eat or drink in the past 2 days secondary to nausea. There is been no vomiting. - Related Data Home Medications Medication Instructions Recorded Confirmed Montelukast [Singulair] 10 mg PO HS 07/22/14 07/05/23 allopurinoL [Zyloprim] 100 mg PO BID 07/22/14 07/05/23 Aspirin [Adult Low Dose Aspirin EC] 81 mg PO HS 06/01/19 07/05/23 atenoloL [Tenormin] 50 mg PO DAILY 06/01/19 07/05/23 Gabapentin [Neurontin] 300 mg PO BID 05/14/22 07/05/23 Rosuvastatin [Crestor] 10 mg PO HS 05/14/22 07/05/23 Omeprazole 40 mg PO DAILY 10/10/22 07/05/23 Isosorbide Mononitrate ER [Imdur] 15 mg PO BID 07/05/23 07/05/23 Metoclopramide [Reglan] 10 mg PO TID PRN 07/05/23 07/05/23 Ondansetron [Zofran] 4 mg PO Q8HR PRN 07/05/23 07/05/23 PARoxetine HCL [Paxil] 40 mg PO DAILY 07/05/23 07/05/23 Valsartan [Diovan] 80 mg PO DAILY 07/05/23 07/05/23 hydrALAZINE HCL [Apresoline] 10 mg PO TID PRN 07/05/23 07/05/23 Previous Rx's Medication Instructions Recorded Ondansetron Odt [Zofran Odt] 4 mg PO Q8HR PRN #10 tab 07/05/23 Allergies Allergy/AdvReac Type Severity Reaction Status Date / Time Sulfa (Sulfonamide Allergy Rash/Hives Verified 07/05/23 17:11 Antibiotics) Review of Systems ROS Statement: Those systems with pertinent positive or pertinent negative responses have been documented in the HPI. ROS Other: All systems not noted in ROS Statement are negative. Past Medical History Past Medical History: Asthma, COPD, GERD/Reflux, Hyperlipidemia, Hypertension, Osteoarthritis (OA), Renal Disease Additional Past Medical History / Comment(s): Kidney stone. Gout bilateral feet. Urinary incontinence. RENAL DISEASE PER DR. ROSE CONSULTATION. History of Any Multi-Drug Resistant Organisms: None Reported Past Surgical History: Appendectomy, Back Surgery, Section, Cholecys tectomy, Orthopedic Surgery Additional Past Surgical History / Comment(s): L/R LITHOTRIPSIES. LEFT ANKLE PLATE SCREW. LUMBAR EPIDURAL PAIN INJECTIONS. 6-8-16 laminectomy. CATARACT -BILATERAL WITH LENS IMPLANT. LASER TREATMENT OF R EYE D/T "FILM". Ramiro carpal tunnel. Past Anesthesia/Blood Transfusion Reactions: Motion Sickness Past Psychological History: Depression Smoking Status: Former smoker Past Alcohol Use History: Rare Past Drug Use History: Marijuana - Past Family History Mother Family Medical History: Myocardial Infarction ([place]) Additional Family Medical History / Comment(s): Mother of a [place] at the age of 75yrs. Father Family Medical History: CVA/TIA Additional Family Medical History / Comment(s): Father of a CVA at the age of 82 yrs. Sister(s) Family Medical History: Vascular Disorder Additional Family Medical History / Comment(s): Sister from an aortic dissection at the age of 56yrs. Brother(s) Family Medical History: Cancer Daughter(s) Family Medical History: No Reported History General Exam Limitations: no limitations General appearance: alert, in no apparent distress Head exam: Present: atraumatic, normocephalic Eye exam: Present: normal appearance, PERRL ENT exam: Present: mucous membranes dry Neck exam: Present: normal inspection. Absent: tenderness, meningismus Respiratory exam: Present: normal lung sounds bilaterally. Absent: respiratory distress, wheezes Cardiovascular Exam: Present: regular rate, normal rhythm GI/Abdominal exam: Present: soft. Absent: distended Neurological exam: Present: alert, oriented X3, CN II-XII intact. Absent: motor sensory deficit Psychiatric exam: Present: normal affect, normal mood Skin exam: Present: warm, dry, intact. Absent: cyanosis, diaphoretic Course Vital Signs 07/05/23 07/05/23 15:02 16:54 Temperature 97.3 F L Pulse Rate 73 67 Respiratory 18 20 Rate Blood Pressure 171/93 150/88 O2 Sat by Pulse 97 96 Oximetry Medical Decision Making - Medical Decision Making Was pt. sent in by a medical professional or institution (ÁNGEL Jovel, INDUSTRIAL ORGANIZATIONAL PSYCHOLOGIST, urgent care, hospital, or shelter...) When possible be specific @ -No Did you speak to anyone other than the patient for history (EMS, parent, family, police, friend...)? What history was obtained from this source @ -No Did you review nursing and triage notes (agree or disagree)? Why? @ -I reviewed and agree with nursing and triage notes Were old charts reviewed (outside hosp., previous admission, EMS record, old EKG, old radiological studies, urgent care reports/EKG's, shelter records)? Report findings @ -No old charts were reviewed Differential Diagnosis (chest pain, altered mental status, abdominal pain women, abdominal pain men, vaginal bleeding, weakness, fever, dyspnea, syncope, headache, dizziness, GI bleed, back pain, seizure, CVA, palpatations, mental health, musculoskeletal)? @Chronic diarrhea, C. difficile, colitis EKG interpreted by me (3pts min.). @ -As above X-rays interpreted by me (1pt min.). @ -None done CT interpreted by me (1pt min.). @ -None done U/S interpreted by me (1pt. min.). @ -None done What testing was considered but not performed or refused? (CT, X-rays, U/S, labs)? Why? @ -None What meds were considered but not given or refused? Why? @ -None Did you discuss the management of the patient with other professionals (prof clark i.e. ÁNGEL Jovel, INDUSTRIAL ORGANIZATIONAL PSYCHOLOGIST, lab, RT, psych nurse, social services coordinator, drum stenciler, teacher, service officer, employment evaluator/case manager)? Give summary @ -No Was smoking cessation discussed for >3mins.? @ -No Was critical care preformed (if so, how long)? @ -No Were there social determinants of health that impacted care today? How? (Homelessness, low income, unemployed, alcoholism, drug addiction, transportat ion, low edu. Level, literacy, decrease access to med. care, longterm, rehab)? @ -No Was there de-escalation of care discussed even if they declined (Discuss DNR or withdrawal of care, Hospice)? DNR status @ -No What co-morbidities impacted this encounter? (DM, HTN, Smoking, COPD, CAD, Cancer, CVA, ARF, Chemo, Hep., AIDS, mental health diagnosis, sleep apnea, morbid obesity)? @ -Chronic diarrhea and nausea Was patient admitted / discharged? Hospital course, mention meds given and route , prescriptions, significant lab abnormalities, going to OR and other pertinent info. @ -78-year-old female presenting for evaluation of diarrhea and chronic nausea. The symptoms have been ongoing and the patient states she has received multiple evaluations by multiple providers including gastroenterology she's had endoscopy and colonoscopy. She states she's had imaging. She's had no fever and no abdominal pain or tenderness on exam. She has no vomiting just nausea. No o ther associated symptoms. Patient's given IV fluids in the emergency department. She has chronic kidney disease which is at baseline. Otherwise laboratory testing is unremarkable. Patient requests antiemetics and will follow with her primary care provider regarding these chronic symptoms. Undiagnosed new problem with uncertain prognosis? @ -No Drug Therapy requiring intensive monitoring for toxicity (Heparin, Nitro, Insulin, Cardizem)? @ -No Were any procedures done? @ -No Diagnosis/symptom? @Nausea and diarrhea Acute, or Chronic, or Acute on Chronic? @ -Chronic Uncomplicated (without systemic symptoms) or Complicated (systemic symptoms)? @ -default Side effects of treatment? @ -No Exacerbation, Progression, or Severe Exacerbation? @ -No Poses a threat to life or bodily function? How? (Chest pain, [place], [place], pneumonia, PE, COPD, DKA, ARF, appy, cholecystitis, CVA, Diverticulitis, Homicidal, Suicidal, threat to staff... and all critical care pts) @ -Low risk at this time - Lab Data Result diagrams: 07/05/23 15:52 07/05/23 15:52 Lab Results 07/05/23 07/05/23 07/05/23 Range/Units 15:52 15:52 15:52 WBC 5.1 (3.8-10.6) k/uL RBC 4.67 (3.80-5.40) m/uL Hgb 14.1 (11.4-16.0) gm/dL Hct 43.0 (34.0-46.0) % MCV 92.2 (80.0-100.0) fL MCH 30.2 (25.0-35.0) pg MCHC 32.8 (31.0-37.0) g/dL RDW 15.7 H (11.5-15.5) % Plt Count 164 (150-450) k/uL MPV 8.1 Neutrophils % 68 % Lymphocytes % 18 % Monocytes % 7 % Eosinophils % 3 % Basophils % 2 % Neutrophils # 3.5 (1.3-7.7) k/uL Lymphocytes # 0.9 L (1.0-4.8) k/uL Monocytes # 0.4 (0-1.0) k/uL Eosinophils # 0.1 (0-0.7) k/uL Basophils # 0.1 (0-0.2) k/uL Sodium 142 (137-145) mmol/L Potassium 4.6 (3.5-5.1) mmol/L Chloride 107 (98-107) mmol/L Carbon Dioxide 20 L (22-30) mmol/L Anion Gap 15 mmol/L BUN 30 H (7-17) mg/dL Creatinine 1.65 H (0.52-1.04) mg/dL Est GFR (CKD-EPI)AfAm 35 (>60 ml/min/1.73 sqM) Est GFR (CKD-EPI)NonAf 30 (>60 ml/min/1.73 sqM) Glucose 134 H (74-99) mg/dL Calcium 9.9 (8.4-10.2) mg/dL Total Bilirubin 0.7 (0.2-1.3) mg/dL AST 38 H (14-36) U/L ALT 29 (4-34) U/L Alkaline Phosphatase 95 (38-126) U/L Total Protein 7.8 (6.3-8.2) g/dL Albumin 4.2 (3.5-5.0) g/dL Lipase 220 (23-300) U/L TSH 4.840 H (0.465-4.680) mIU/L Free T4 1.04 (0.78-2.19) ng/dL Urine Color Yellow Urine Appearance Clear (Clear) Urine pH 5.5 (5.0-8.0) Ur Specific [place] 1.017 (1.001-1.035) Urine Protein 1+ H (Negative) Urine Glucose (UA) Negative (Negative) Urine Ketones Trace H (Negative) Urine Blood Small H (Negative) Urine Nitrite Negative (Negative) Urine Bilirubin Negative (Negative) Urine Urobilinogen <2.0 (<2.0) mg/dL Ur Leukocyte Esterase Negative (Negative) Urine RBC 2 (0-5) /hpf Urine WBC 2 (0-5) /hpf Ur Squamous Epith Cells 3 (0-4) /hpf Urine Bacteria Many H (None) /hpf Hyaline Casts 1 (0-2) /lpf Urine Mucus Rare H (None) /hpf Disposition Clinical Impression: Diarrhea, Nausea Disposition: HOME SELF-CARE Condition: Fair Instructions (If sedation given, give patient instructions): Acute Diarrhea (ED), Acute Nausea and Vomiting (ED) Prescriptions: Ondansetron Odt [Zofran Odt] 4 mg PO Q8HR PRN #10 tab PRN Reason: Vomiting Is patient prescribed a controlled substance at d/c from ED?: No Referrals: James Rose MD [Primary Care Provider] - 1-2 days Gloria Coe MD [STAFF PHYSICIAN] - 1-2 days Time of Disposition: 18:23
[2023-07-05 16:01] LABS: Basophils # (A) 0.1 k/uL (0-0.2); Basophils % (A) 2 %; Eosinophils # (A) 0.1 k/uL (0-0.7); Eosinophils % (A) 3 %; HGB 14.1 gm/dL (11.4-16.0); Lymphocytes # (A) 0.9 k/uL (1.0-4.8); Lymphocytes % (A) 18 %; MCH 30.2 pg (25.0-35.0); MCHC 32.8 g/dL (31.0-37.0); MCV 92.2 fL (80.0-100.0); Mean Platelet Volume 8.1; Monocytes # (A) 0.4 k/uL (0-1.0); Monocytes % (A) 7 %; Neutrophils # (A) 3.5 k/uL (1.3-7.7); Neutrophils % (A) 68 %; Platelet Count 164 k/uL (150-450); RBC 4.67 m/uL (3.80-5.40); RDW 15.7 % (11.5-15.5); WBC 5.1 k/uL (3.8-10.6)
[2023-07-05 16:25] LABS: ALT 29 U/L (4-34); African American GFR (CKD) 35 (>60 ml/min/1.73 sqM); Albumin 4.2 g/dL (3.5-5.0); Anion Gap 15 mmol/L; Blood Urea Nitrogen 30 mg/dL (7-17); Calcium 9.9 mg/dL (8.4-10.2); Carbon Dioxide 20 mmol/L (22-30); Chloride 107 mmol/L (98-107); Glucose 134 mg/dL (74-99); Lipase 220 U/L (23-300); Non-African American GFR(CKD) 30 (>60 ml/min/1.73 sqM); Sodium 142 mmol/L (137-145); Total Bilirubin 0.7 mg/dL (0.2-1.3); Total Protein 7.8 g/dL (6.3-8.2)
--- NOTE | 2023-07-05 16:34 | XR ---
EXAMINATION TYPE: XR KUB DATE OF EXAM: 07/05/2023 4:18 PM CLINICAL INDICATION:Female, 78 years old with history of pain; PHH COMPARISON: CTA abdomen and pelvis 02/11/2023 TECHNIQUE: AP upright view of the abdomen-pelvis was obtained. FINDINGS: The bowel gas pattern is nonspecific without dilated loops of small or large bowel. Small a mount of fecal material and gas are demonstrated throughout the colon and rectum. There is no evidence for organomegaly or pneumoperitoneum. The osseous structures appear intact. Deg enerative changes throughout the spine with fusion hardware noted L3 L4 L5. A 10 x 7 mm calcification seen on the right, could be a lower pole right renal calculus. No definite pathologic calcifications are evident over the anticipated course of the ureters. Pelvic phleboliths are present. IMPRESSION: 1. A 10 x 7 mm calcification on the right, could be a lower pole right renal calculus. 2. Nonspecific bowel gas pattern without radiographic evidence for acute process.
[2023-07-05 16:57] LABS: AST 38 U/L (14-36); Alkaline Phosphatase 95 U/L (38-126); Potassium 4.6 mmol/L (3.5-5.1)
[2023-07-05 17:46] LABS: Appearance,Urine Clear (Clear); Bacteria,Urine Many /hpf; Bilirubin,Urine Negative (Negative); Blood,Urine Small (Negative); Color,Urine Yellow; Glucose,Urine (UA) Negative (Negative); Hyaline Casts,Urine 1 /lpf (0-2); Ketones,Urine Trace (Negative); Leukocyte Esterase,Urine Negative (Negative); Mucus,Urine Rare /hpf; Nitrite,Urine Negative (Negative); PH, Urine 5.5 (5.0-8.0); Protein,Urine 1+ (Negative); RBC,Urine 2 /hpf (0-5); Specific Gravity,Urine 1.017 (1.001-1.035); Squamous Epithelial Cell,Urine 3 /hpf (0-4); Urobilinogen,Urine <2.0 mg/dL (<2.0); WBC,Urine 2 /hpf (0-5)
[2023-07-05 17:51] LABS: T4, Free (Free Thyroxine) 1.04 ng/dL (0.78-2.19)
[2023-07-05] MEDS ORDERED: ONDANSETRON 4 MG ODT STARTER PACK 2 TAB BTL PO STA (18:20)
[2023-07-05 18:52] VITALS: BP 162/95; PULSE 73; RESP 16
== END 2023-07-05 18:39 | disposition home or self-care (01) ==
LOC: EC 14:57
DX: R19.7 Diarrhea, unspecified (principal); R11.0 Nausea; I10 Essential (primary) hypertension; E78.5 Hyperlipidemia, unspecified; F32.A Depression, unspecified; J44.89 Other specified chronic obstructive pulmonary disease; K21.9 Gastro-esophageal reflux disease without esophagitis; M19.90 Unspecified osteoarthritis, unspecified site; F12.90 Cannabis use, unspecified, uncomplicated; Z87.891 Personal history of nicotine dependence; Z79.899 Other long term (current) drug therapy; Z88.2 Allergy status to sulfonamides; Z90.49 Acquired absence of other specified parts of digestive tract
CPT/HCPCS: 99284; 96360; 36415; 84439; 80053; 84443; 83690; 85025; 81001; 74018; S0119

== ENCOUNTER → 2023-08-08 | Outpatient (CLI) | payer MEDICARE ==
[~2023-08-08] MED LIST changes: -ACETAMINOPHEN TAB 500 MG TAB PO PRN; -DEXAMETHASONE SOD PHOSPHATE 4 MG/ML 1 ML VIAL IV ONE; -GABAPENTIN 300 MG CAP PO PRN; -HYDROmorphone 0.5 MG/0.5 ML SYRINGE IVP PRN; -MELOXICAM 7.5 MG TAB PO PRN; -ONDANSETRON 4 MG/2 ML VIAL IVP ONE; -ONDANSETRON 4 MG/2 ML VIAL IVP PRN; +REGADENOSON 0.4 MG/5 ML SYRINGE IV PRN; -TRANEXAMIC ACID IN NACL,ISO-OS 1,000 MG in SALINE 1 100ML.BAG IVPB PRN
--- NOTE | 2023-08-08 12:02 | CA ---
Lexiscan Nuclear Stress Test Report Name: Cheryl Alston Exam Date: 08/08/2023 10:17 Exam Location: [facility] Stress Ht (in): 64 Wt (lb): 192 BSA: 1.92 Ordering Phys: James Rose MD Referring Phys: Maya Osorio Technologist: FLAVIA Age: 78 Gender: F : 1945 Procedure CPT: Indications: R07.9 CHEST PAIN ICD-10 Codes: Patient History: CHEST PAIN, DIFFICULTY IN BREATHING, HTN, ELEVATED CHOLESTEROL LEVELS, FAMILY HX OF HEART DISEASE, CURRENT SMOKER 0.5 PPD X 50 YEARS, COPD Medications: Meds past 24 hrs: Pretest Chest Pain: STRESS TEST Lexiscan Protocol Exercise Duration (min:sec): 02:[address] Depressions (mm): Angina Score: Chauhan Score: Resting HR (bpm): 62 Peak HR (bpm): 76 Resting BP (mmHg): 103 / 75 Peak BP (mmHg): 107 / 71 MPHR: 144 Target HR: 122 % MPHR: 53 METS: 1.0 Total Dose: Peak Dose: Atropine: Double Product: 8132 BP Response: Stress Termination: INFUSION COMPLETE Stress Symptoms: NO SYMPTOMS Stress Summary: ECG ANALYSIS Resting ECG: Normal sinus rhythm, heart rate 63 beats a minute Stress ECG: No significant ST-T wave changes diagnostic for ischemia with Lexiscan infusion. There were no ectopic beats or sustained arrhythmias CONCLUSIONS Nonischemic ECG response to Lexiscan infusion Normal clinical and hemodynamic response to Lexiscan infusion Overall normal ECG portion of Lexiscan nuclear stress test Please refer to the nuclear portion of the imaging for complete interpretation of the study Dr Jerrell Kat (Electronically Signed) Final Date: 08 August 2023 12:02
--- NOTE | 2023-08-08 13:10 | NM ---
EXAMINATION TYPE: NM stress lexiscan cardiolite DATE OF EXAM: 08/08/2023 COMPARISON: NONE CLINICAL INDICATION: Female, 78 years old with history of R07.9 CHEST PAIN; TECHNIQUE: After the intravenous administration of 9.91 mCi Tc 99m Sestamibi - Cardiolite resting SP ECT images acquired 55 minutes post injection. The patient received 0.4mg Lexiscan, 24.7 mCi Tc 99m Sestamibi - Stress images obtained [address] injection FINDINGS: Review of stress and rest SPECT images demonstrates no distinct perfusion abnormality. Gated analysi s shows normal wall motion with an estimated left ventricular ejection fraction of 49 %. IMPRESSION: No scintigraphic evidence for reversible ischemia.
== END | disposition home or self-care (01) ==
LOC: RADNMMAIN 08:07
PROVIDERS: ATTEND Internal Medicine Geriatric Medicine
DX: R07.9 Chest pain, unspecified (principal)
CPT/HCPCS: 93017; 78452; A9500; J2785

== ENCOUNTER 2024-01-05 17:47 | Emergency (ER) | payer MEDICARE ==
--- NOTE | 2024-01-05 18:10 | ED ---
ENT HPI - General Source: patient, RN notes reviewed Mode of arrival: ambulatory Limitations: no limitations <Marianne Warner - Last Filed: 01/05/24 18:08> - General Source: patient, family, RN notes reviewed Mode of arrival: ambulatory Limitations: no limitations <Judy Ocampo - Last Filed: 01/06/24 03:51> - General Chief complaint: ENT Stated complaint: Nose bleed Time Seen by Provider: 01/05/24 18:02 - History of Present Illness Initial comments: Christina is a 78-year-old female presents emergency department chief complaint of epistaxis. Patient states that she had a blood clot from her nose with an associated bloody nose today that took a mild amount of time to stop bleeding. Patient denies current blood thinner use, states she takes a baby aspirin daily. She is feeling nauseous. Denies weakness, headaches, fatigue, palpitations. (Marianne Warner) 78-year-old female presented to the ER with a chief complaint of epistaxis. Patient states she felt something in her nose and used her finger to pick at it. She states her nose started to bleed profusely after. She reports it started on her right nostril and soon was draining down the back of her throat and into her left nostril. She denies any blood thinner use. Bleeding is controlled at this time. Denies any dizziness, lightheadedness, chest pain or shortness of breath. (Judy Ocampo) - Related Data Home Medications Medication Instructions Recorded Confirmed Montelukast [Singulair] 10 mg PO HS 07/22/14 07/05/23 allopurinoL [Zyloprim] 100 mg PO BID 07/22/14 07/05/23 Aspirin [Adult Low Dose Aspirin EC] 81 mg PO HS 06/01/19 07/05/23 atenoloL [Tenormin] 50 mg PO DAILY 06/01/19 07/05/23 Gabapentin [Neurontin] 300 mg PO BID 05/14/22 07/05/23 Rosuvastatin [Crestor] 10 mg PO HS 05/14/22 07/05/23 Omeprazole 40 mg PO DAILY 10/10/22 07/05/23 Isosorbide Mononitrate ER [Imdur] 15 mg PO BID 07/05/23 07/05/23 Metoclopramide [Reglan] 10 mg PO TID PRN 07/05/23 07/05/23 Ondansetron [Zofran] 4 mg PO Q8HR PRN 07/05/23 07/05/23 PARoxetine HCL [Paxil] 40 mg PO DAILY 07/05/23 07/05/23 Valsartan [Diovan] 80 mg PO DAILY 07/05/23 07/05/23 hydrALAZINE HCL [Apresoline] 10 mg PO TID PRN 07/05/23 07/05/23 Previous Rx's Medication Instructions Recorded Ondansetron Odt [Zofran Odt] 4 mg PO Q8HR PRN #10 tab 07/05/23 Allergies Allergy/AdvReac Type Severity Reaction Status Date / Time Sulfa (Sulfonamide Allergy Rash/Hives Verified 01/05/24 18:06 Antibiotics) Review of Systems ROS Other: All systems not noted in ROS Statement are negative. <Marianne Warner - Last Filed: 01/05/24 18:08> ROS Other: All systems not noted in ROS Statement are negative. <Judy Ocampo - Last Filed: 01/06/24 03:51> ROS Statement: Those systems with pertinent positive or pertinent negative responses have been documented in the HPI. Past Medical History Past Medical History: Asthma, COPD, GERD/Reflux, Hyperlipidemia, Hypertension, Osteoarthritis (OA), Renal Disease Additional Past Medical History / Comment(s): Kidney stone. Gout bilateral feet. Urinary incontinence. RENAL DISEASE PER DR. ROSE CONSULTATION. History of Any Multi-Drug Resistant Organisms: None Reported Past Surgical History: Appendectomy, Back Surgery, Section, Cholecystectomy, Orthopedic Surgery Additional Past Surgical History / Comment(s): L/R LITHOTRIPSIES. LEFT ANKLE PLATE SCREW. LUMBAR EPIDURAL PAIN INJECTIONS. 6-8-16 laminectomy. CATARACT -BILATERAL WITH LENS IMPLANT. LASER TREATMENT OF R EYE D/T "FILM". Ramiro carpal tunnel. Past Anesthesia/Blood Transfusion Reactions: Motion Sickness Past Psychological History: Depression Smoking Status: Former smoker Past Alcohol Use History: Rare Past Drug Use History: Marijuana - Past Family History Mother Family Medical History: Myocardial Infarction ([place]) Additional Family Medical History / Comment(s): Mother of a [place] at the age of 75yrs. Father Family Medical History: CVA/TIA Additional Family Medical History / Comment(s): Father of a CVA at the age of 82 yrs. Sister(s) Family Medical History: Vascular Disorder Additional Family Medical History / Comment(s): Sister from an aortic dissection at the age of 56yrs. Brother(s) Family Medical History: Cancer Daughter(s) Family Medical History: No Reported History <Marianne Warner - Last Filed: 01/05/24 18:08> General Exam Limitations: no limitations <Marianne Warner - Last Filed: 01/05/24 18:08> General appearance: alert, in no apparent distress Head exam: Present: atraumatic, normocephalic, normal inspection Eye exam: Present: normal appearance, PERRL, EOMI. Absent: scleral icterus, conjunctival injection, periorbital swelling ENT exam: Present: normal exam, normal oropharynx (blood in posterior pharynx), mucous membranes moist, TM's normal bilaterally, other (Bilateral naris open with no active bleeding.) Neck exam: Present: normal inspection. Absent: tenderness, meningismus, lymphadenopathy Respiratory exam: Present: normal lung sounds bilaterally. Absent: respiratory distress, wheezes, rales, rhonchi, stridor Cardiovascular Exam: Present: regular rate, normal rhythm, normal heart sounds. Absent: systolic murmur, diastolic murmur, rubs, gallop, clicks Skin exam: Present: warm, dry, intact, normal color. Absent: rash <Judy Ocampo - Last Filed: 01/06/24 03:51> - General Exam Comments Initial Comments: Visual Physical Exam Vital signs reviewed General: Well-appearing, nontoxic, no acute distress. Head: Normocephalic, atraumatic Eyes: PERRLA, EOMI ENT: Airway patent Chest: Nonlabored breathing Skin: No visual rash, normal skin tone Neuro: Alert and oriented 3 Musculoskeletal: No gross abnormalities (Marianne Warner) Course Vital Signs 01/05/24 01/05/24 18:02 19:15 Temperature 98.1 F Pulse Rate 63 59 L Respiratory 16 18 Rate Blood Pressure 130/73 116/79 O2 Sat by Pulse 96 96 Oximetry Medical Decision Making <Marianne Warner - Last Filed: 01/05/24 18:08> <DamarisJudy - Last Filed: 01/06/24 03:51> - Medical Decision Making Was pt. sent in by a medical professional or institution (ÁNGEL Jovel, MACHINE TOOL DRESSER, urgent care, hospital, or penitentiary...) When possible be specific I completed the quick note portion of this chart signed ÁNGEL Aceves-Danyel (Marianne Warner) Was pt. sent in by a medical professional or institution (ÁNGEL Jovel, MACHINE TOOL DRESSER, urgent care, hospital, or penitentiary...) When possible be specific @ -No Did you speak to anyone other than the patient for history (EMS, parent, family, police, friend...)? What history was obtained from this source @ -No Did you review nursing and triage notes (agree or disagree)? Why? @ -I reviewed and agree with nursing and triage notes Were old charts reviewed (outside hosp., previous admission, EMS record, old EKG, old radiological studies, urgent care reports/EKG's, penitentiary records)? Report findings @ -No old charts were reviewed Differential Diagnosis (chest pain, altered mental status, abdominal pain women, abdominal pain men, vaginal bleeding, weakness, fever, dyspnea, syncope, headache, dizziness, GI bleed, back pain, seizure, CVA, palpatations, mental health, musculoskeletal)? @ -Epistaxis, foreign body, septal hematoma this list is not meant to be all- inclusive EKG interpreted by me (3pts min.). @ -None X-rays interpreted by me (1pt min.). @ -None done CT interpreted by me (1pt min.). @ -None done U/S interpreted by me (1pt. min.). @ -None done What testing was considered but not performed or refused? (CT, X-rays, U/S, labs)? Why? @ -None What meds were considered but not given or refused? Why? @ -None Did you discuss the management of the patient with other professionals (professionals i.e. ÁNGEL Jovel, MACHINE TOOL DRESSER, lab, RT, psych nurse, social services analyst, edge polisher, teacher, trust officer, binder caser)? Give summary @ -No Was smoking cessation discussed for >3mins.? @ -No Was critical care preformed (if so, how long)? @ -No Were there social determinants of health that impacted care today? How? (Homelessness, low income, unemployed, alcoholism, drug addiction, transportation, low edu. Level, literacy, decrease access to med. care, long-term, rehab)? @ -No Was there de-escalation of care discussed even if they declined (Discuss DNR or withdrawal of care, Hospice)? DNR status @ -No What co-morbidities impacted this encounter? (DM, HTN, Smoking, COPD, CAD, Canc er, CVA, ARF, Chemo, Hep., AIDS, mental health diagnosis, sleep apnea, morbid obesity)? @ -None Was patient admitted / discharged? Hospital course, mention meds given and route, prescriptions, significant lab abnormalities, going to OR and other pertinent info. @ -Discharge. 78-year-old female presented to the ER with chief complaint of epistaxis. History and physical exam completed. Vitals stable. Patient in no signs acute distress and nontoxic-appearing. No active bleeding on exam. Lung sounds clear to auscultation bilaterally. Discharged with a nose clamp in case of rebleeding. Advise close follow-up with PCP. Return parameters discussed. Patient discharge stable condition with follow-up to PCP. Patient verbally expressed understanding and agreement with care plan. Case discussed with ED attending, Dr. Cooper. Undiagnosed new problem with uncertain prognosis? @ -No Drug Therapy requiring intensive monitoring for toxicity (Heparin, Nitro, Insulin, Cardizem)? @ -No Were any procedures done? @ -No Diagnosis/symptom? @ -Epistaxis Acute, or Chronic, or Acute on Chronic? @ -Acute Uncomplicated (without systemic symptoms) or Complicated (systemic symptoms)? @ -Uncomplicated Side effects of treatment? @ -No Exacerbation, Progression, or Severe Exacerbation? @ -No Poses a threat to life or bodily function? How? (Chest pain, [place], [place], pneumonia, PE, COPD, DKA, ARF, appy, cholecystitis, CVA, Diverticulitis, Homicidal, Suicidal, threat to staff... and all critical care pts) @ -No (Judy Ocampo) Disposition <Marianne Warner - Last Filed: 01/05/24 18:08> Is patient prescribed a controlled substance at d/c from ED?: No Time of Disposition: 18:59 <Judy Ocampo - Last Filed: 01/06/24 03:51> Clinical Impression: Epistaxis Disposition: HOME SELF-CARE Condition: Stable Instructions (If sedation given, give patient instructions): Nosebleed (ED) Additional Instructions: If nosebleed were to restart, I recommend blowing all of the clots out of your nose. Then placing nose clamp firmly on bridge of nose for about 20 minutes. Follow-up with PCP tomorrow as scheduled. Return to the ER for any new or worsening symptoms. Referrals: James Rose MD [Primary Care Provider] - 1-2 days
[2024-01-05 18:14] VITALS: TEMP 98.1
[2024-01-05 20:10] VITALS: BP 116/79; PULSE 59; RESP 18
== END 2024-01-05 19:23 | disposition home or self-care (01) ==
LOC: EC 17:47
DX: R04.0 Epistaxis (principal); Z88.2 Allergy status to sulfonamides
CPT/HCPCS: 99283

== ENCOUNTER 2024-07-08 09:27 | Emergency (ER) | payer MEDICARE ==
[2024-07-08 09:32] VITALS: TEMP 97.3
--- NOTE | 2024-07-08 09:48 | ED ---
Nausea/Vomiting/Diarrhea HPI - General Chief complaint: Nausea/Vomiting/Diarrhea Stated complaint: NVD Time Seen by Provider: 07/08/24 09:47 Source: patient, family (daughter), RN notes reviewed, old records reviewed Mode of arrival: wheelchair Limitations: no limitations - History of Present Illness Initial comments: 79 year old female presenting to the ER with a chief complaint of nausea and diarrhea. Daughter is aiding in HPI and past medical history. Patient reports for the past 3 years she has been having intermittent nausea and diarrhea. Pat ient reports past 2 days she has had an increase in her symptoms. She has tried [id number] medications without relief. Denies known fevers. Patient denies any recent antibiotic use. Patient underwent colonoscopy within the past 5 years for which she had a polyp removed. No other abnormality seen. Patient denies any chest pain, shortness of breath, urinary complaints or other complaints. - Related Data Home Medications Medication Instructions Recorded Confirmed Montelukast [Singulair] 10 mg PO DAILY 07/22/14 07/08/24 allopurinoL [Zyloprim] 100 mg PO BID 07/22/14 07/08/24 Aspirin [Adult Low Dose Aspirin EC] 81 mg PO HS 06/01/19 07/08/24 atenoloL [Tenormin] 50 mg PO DAILY 06/01/19 07/08/24 Gabapentin [Neurontin] 300 mg PO BID 05/14/22 07/08/24 Rosuvastatin [Crestor] 10 mg PO HS 05/14/22 07/08/24 Omeprazole 40 mg PO BID 10/10/22 07/08/24 Isosorbide Mononitrate ER [Imdur] 15 mg PO DAILY 07/05/23 07/08/24 Metoclopramide [Reglan] 5 mg PO DAILY 07/05/23 07/08/24 PARoxetine HCL [Paxil] 40 mg PO DAILY 07/05/23 07/08/24 Valsartan [Diovan] 80 mg PO HS 07/05/23 07/08/24 Acetaminophen-Codeine 300-30mg 1 tab PO Q6H PRN 07/08/24 07/08/24 [Tylenol w/codeine #3] Bismuth Subsalicylate 524 mg PO DAILY PRN 07/08/24 07/08/24 [Pepto-Bismol] Furosemide [Lasix] 20 mg PO DAILY 07/08/24 07/08/24 L.acidoph,Paracasei, B.lactis 1 cap PO DAILY 07/08/24 07/08/24 [Probiotic] PARoxetine [Paxil] 20 mg PO DAILY 07/08/24 07/08/24 Venlafaxine HCl [Effexor XR] 75 mg PO HS 07/08/24 07/08/24 Previous Rx's Medication Instructions Recorded Ondansetron Odt [Zofran Odt] 4 mg PO Q8HR PRN #10 tab 07/05/23 Amoxic-Pot Clav 875-125Mg 1 tab PO Q12HR #10 tab 07/08/24 [Augmentin 875-125] Ondansetron Odt [Zofran Odt] 4 mg PO Q8HR PRN #10 tab 07/08/24 Allergies Allergy/AdvReac Type Severity Reaction Status Date / Time Sulfa (Sulfonamide Allergy Rash/Hives Verified 07/08/24 11:24 Antibiotics) Review of Systems ROS Statement: Those systems with pertinent positive or pertinent negative responses have been documented in the HPI. ROS Other: All systems not noted in ROS Statement are negative. Past Medical History Past Medical History: Asthma, COPD, GERD/Reflux, Hyperlipidemia, Hypertension, Osteoarthritis (OA), Renal Disease Additional Past Medical History / Comment(s): Kidney stone. Gout bilateral feet. Urinary incontinence. RENAL DISEASE PER DR. ROSE CONSULTATION. History of Any Multi-Drug Resistant Organisms: None Reported Past Surgical History: Appendectomy, Back Surgery, Section, Cholecystectomy, Orthopedic Surgery Additional Past Surgical History / Comment(s): L/R LITHOTRIPSIES. LEFT ANKLE PLATE SCREW. LUMBAR EPIDURAL PAIN INJECTIONS. 6-8-16 laminectomy. CATARACT -BILATERAL WITH LENS IMPLANT. LASER TREATMENT OF R EYE D/T "FILM". Ramiro carpal tunnel. Past Anesthesia/Blood Transfusion Reactions: Motion Sickness Past Psychological History: Depression Smoking Status: Former smoker Past Alcohol Use History: Rare Past Drug Use History: Marijuana - Past Family History Mother Family Medical History: Myocardial Infarction ([place]) Additional Family Medical History / Comment(s): Mother of a [place] at the age of 75yrs. Father Family Medical History: CVA/TIA Additional Family Medical History / Comment(s): Father of a CVA at the age of 82 yrs. Sister(s) Family Medical History: Vascular Disorder Additional Family Medical History / Comment(s): Sister from an aortic dissection at the age of 56yrs. Brother(s) Family Medical History: Cancer Daughter(s) Family Medical History: No Reported History General Exam Limitations: no limitations General appearance: alert, in no apparent distress Respiratory exam: Present: normal lung sounds bilaterally. Absent: respiratory distress, wheezes, rales, rhonchi, stridor Cardiovascular Exam: Present: regular rate, normal rhythm, normal heart sounds. Absent: systolic murmur, diastolic murmur, rubs, gallop, clicks GI/Abdominal exam: Present: soft, normal bowel sounds. Absent: distended, tenderness, guarding, rebound, rigid Neurological exam: Present: alert, oriented X3, CN II-XII intact Skin exam: Present: warm, dry, intact, normal color. Absent: rash Course Vital Signs 07/08/24 07/08/24 07/08/24 09:28 10:35 13:11 Temperature 97.3 F L Pulse Rate 79 70 77 Respiratory 22 20 18 Rate Blood Pressure 163/102 138/94 145/97 O2 Sat by Pulse 94 L 93 L 95 Oximetry 07/08/24 14:51 Temperature Pulse Rate 80 Respiratory 18 Rate Blood Pressure 139/91 O2 Sat by Pulse 95 Oximetry Medical Decision Making - Medical Decision Making Was pt. sent in by a medical professional or institution (, PA, DUBBING MACHINE OPERATOR, urgent care, hospital, or senior care...) When possible be specific @ -No Did you speak to anyone other than the patient for history (EMS, parent, family, police, friend...)? What history was obtained from this source @ -Daughter aiding in HPI and past medical history. Did you review nursing and triage notes (agree or disagree)? Why? @ -I reviewed and agree with nursing and triage notes Were old charts reviewed (outside hosp., previous admission, EMS record, old EKG, old radiological studies, urgent care reports/EKG's, senior care records)? Report findings @ -No old charts were reviewed Differential Diagnosis (chest pain, altered mental status, abdominal pain women, abdominal pain men, vaginal bleeding, weakness, fever, dyspnea, syncope, headache, dizziness, GI bleed, back pain, seizure, CVA, palpatations, mental he alth, musculoskeletal)? @ -Colitis, diverticulitis, cholecystitis, appendicitis... This list is not meant to be all-inclusive EKG interpreted by me (3pts min.). @ -None done X-rays interpreted by me (1pt min.). @ -None done CT interpreted by me (1pt min.). @ -CT abdomen pelvis showing colitis of the ascending colon. Stable aneurysmal dilation of the aorta. Nonobstructive bilateral renal calculi.] U/S interpreted by me (1pt. min.). @ -None done What testing was considered but not performed or refused? (CT, X-rays, U/S, labs)? Why? @ -None What meds were considered but not given or refused? Why? @ -None Did you discuss the management of the patient with other professionals (professionals i.e. , PA, DUBBING MACHINE OPERATOR, lab, RT, psych nurse, social insurance administrator, biogeographer, teacher, naval gunfire liaison officer, vocational case manager)? Give summary @ -No Was smoking cessation discussed for >3mins.? @ -No Was critical care preformed (if so, how long)? @ -No Were there social determinants of health that impacted care today? How? (Homelessness, low income, unemployed, alcoholism, drug addiction, transportation, low edu. Level, literacy, decrease access to med. care, mcc, rehab)? @ -No Was there de-escalation of care discussed even if they declined (Discuss DNR or withdrawal of care, Hospice)? DNR status @ -No What co-morbidities impacted this encounter? (DM, HTN, Smoking, COPD, CAD, Cancer, CVA, ARF, Chemo, Hep., AIDS, mental health diagnosis, sleep apnea, morbid obesity)? @ -None Was patient admitted / discharged? Hospital course, mention meds given and route, prescriptions, significant lab abnormalities, going to OR and other pertinent info. @ -Discharge. 79-year-old female presented to the ER with a chief complaint of nausea and diarrhea x 3 years. History and physical exam completed. Patient is hypertensive on exam which is likely due to as she has not taken antihypertensive medications today. Vitals otherwise stable. No focal abdominal tenderness with normal bowel sounds. No rebound or guarding. Laboratory studies and CT abdomen pelvis performed along with symptomatic control. Laboratory studies unimpressive. Creatinine 1.34 with a GFR 38 which is chronic in nature. Viral swabs negative. C. difficile negative. CT abdomen pelvis concerning of colitis for which patient will be started on Augmentin. Patient received symptomatic control in the ER with IV fluids, Reglan and Zofran. Upon reevaluation, patient resting complaint examined no signs of acute distress. Results discussed with patient and daughter, at bedside, all questions answered. Advise close follow-up with GI, . Zofran and Augmentin sent to pharmacy. Strict return parameters discussed. Patient discharged in stable condition with follow-up to PCP. Patient verbally expressed understanding and agreement with care plan. Case discussed with ED attending, Dr. Marcos. Undiagnosed new problem with uncertain prognosis? @ -No Drug Therapy requiring intensive monitoring for toxicity (Heparin, Nitro, Insulin, Cardizem)? @ -No Were any procedures done? @ -No Diagnosis/symptom? @ -Colitis Acute, or Chronic, or Acute on Chronic? @ -Acute Uncomplicated (without systemic symptoms) or Complicated (systemic symptoms)? @ -Uncomplicated Side effects of treatment? @ -No Exacerbation, Progression, or Severe Exacerbation? @ -No Poses a threat to life or bodily function? How? (Chest pain, [place], [place], pneumonia, PE, COPD, DKA, ARF, appy, cholecystitis, CVA, Diverticulitis, Homicidal, Suicidal, threat to staff... and all critical care pts) @ -No - Lab Data Result diagrams: 07/08/24 10:00 07/08/24 10:07 Lab Results 07/08/24 07/08/24 07/08/24 Range/Units 10:00 10:07 10:07 WBC 10.0 (3.8-10.6) k/uL RBC 4.40 (3.80-5.40) m/uL Hgb 13.6 (11.4-16.0) gm/dL Hct 41.2 (34.0-46.0) % MCV 93.8 (80.0-100.0) fL MCH 30.9 (25.0-35.0) pg MCHC 33.0 (31.0-37.0) g/dL RDW 15.7 H (11.5-15.5) % Plt Count 178 (150-450) k/uL MPV 7.4 Neutrophils % 84 % Lymphocytes % 8 % Monocytes % 6 % Eosinophils % 1 % Basophils % 1 % Neutrophils # 8.3 H (1.3-7.7) k/uL Lymphocytes # 0.8 L (1.0-4.8) k/uL Monocytes # 0.6 (0-1.0) k/uL Eosinophils # 0.1 (0-0.7) k/uL Basophils # 0.1 (0-0.2) k/uL Sodium 140 (137-145) mmol/L Potassium 4.0 (3.5-5.1) mmol/L Chloride 103 (98-107) mmol/L Carbon Dioxide 24 (22-30) mmol/L Anion Gap 13 mmol/L BUN 16 (7-17) mg/dL Creatinine 1.34 H (0.52-1.04) mg/dL Est GFR (CKD-EPI)AfAm 44 (>60 ml/min/1.73 sqM) Est GFR (CKD-EPI)NonAf 38 (>60 ml/min/1.73 sqM) Glucose 171 H (74-99) mg/dL Plasma Lactic Acid Gaston 2.0 (0.7-2.0) mmol/L Calcium 9.4 (8.4-10.2) mg/dL Total Bilirubin 0.8 (0.2-1.3) mg/dL AST 19 (14-36) U/L ALT 13 (4-34) U/L Alkaline Phosphatase 92 (38-126) U/L Total Protein 7.5 (6.3-8.2) g/dL Albumin 4.2 (3.5-5.0) g/dL Amylase 55 (30-110) U/L Lipase 201 (23-300) U/L C. difficile (EIA) Intrp (Negative) Influenza Type A (PCR) (Not Detectd) Influenza Type B (PCR) (Not Detectd) RSV (PCR) (Not Detectd) SARS-CoV-2 (PCR) (Not Detectd) 07/08/24 07/08/24 Range/Units 10:07 13:16 WBC (3.8-10.6) k/uL RBC (3.80-5.40) m/uL Hgb (11.4-16.0) gm/dL Hct (34.0-46.0) % MCV (80.0-100.0) fL MCH (25.0-35.0) pg MCHC (31.0-37.0) g/dL RDW (11.5-15.5) % Plt Count (150-450) k/uL MPV Neutrophils % % Lymphocytes % % Monocytes % % Eosinophils % % Basophils % % Neutrophils # (1.3-7.7) k/uL Lymphocytes # (1.0-4.8) k/uL Monocytes # (0-1.0) k/uL Eosinophils # (0-0.7) k/uL Basophils # (0-0.2) k/uL Sodium (137-145) mmol/L Potassium (3.5-5.1) mmol/L Chloride (98-107) mmol/L Carbon Dioxide (22-30) mmol/L Anion Gap mmol/L BUN (7-17) mg/dL Creatinine (0.52-1.04) mg/dL Est GFR (CKD-EPI)AfAm (>60 ml/min/1.73 sqM) Est GFR (CKD-EPI)NonAf (>60 ml/min/1.73 sqM) Glucose (74-99) mg/dL Plasma Lactic Acid [place] (0.7-2.0) mmol/L Calcium (8.4-10.2) mg/dL Total Bilirubin (0.2-1.3) mg/dL AST (14-36) U/L ALT (4-34) U/L Alkaline Phosphatase (38-126) U/L Total Protein (6.3-8.2) g/dL Albumin (3.5-5.0) g/dL Amylase (30-110) U/L Lipase (23-300) U/L C. difficile (EIA) Intrp Negative (Negative) Influenza Type A (PCR) Not Detected (Not Detectd) Influenza Type B (PCR) Not Detected (Not Detectd) RSV (PCR) Not Detected (Not Detectd) SARS-CoV-2 (PCR) Not Detected (Not Detectd) - Radiology Data Radiology results: report reviewed, image reviewed Disposition Clinical Impression: Colitis Disposition: HOME SELF-CARE Condition: Stable Instructions (If sedation given, give patient instructions): Colitis (ED) Additional Instructions: Complete full course of Augmentin. Follow-up with GI and PCP. Return to the ER for any new or worsening concerns. Prescriptions: Amoxic-Pot Clav 875-125Mg [Augmentin 875-125] 1 tab PO Q12HR #10 tab Ondansetron Odt [Zofran Odt] 4 mg PO Q8HR PRN #10 tab PRN Reason: Nausea Is patient prescribed a controlled substance at d/c from ED?: No Referrals: James Rose MD [Primary Care Provider] - 1-2 days Gloria Coe MD [STAFF PHYSICIAN] - 1-2 days Time of Disposition: 14:41
[2024-07-08 10:13] LABS: Basophils # (A) 0.1 k/uL (0-0.2); Basophils % (A) 1 %; Eosinophils # (A) 0.1 k/uL (0-0.7); Eosinophils % (A) 1 %; HCT 41.2 % (34.0-46.0); HGB 13.6 gm/dL (11.4-16.0); Lymphocytes # (A) 0.8 k/uL (1.0-4.8); Lymphocytes % (A) 8 %; MCH 30.9 pg (25.0-35.0); MCV 93.8 fL (80.0-100.0); Mean Platelet Volume 7.4; Monocytes # (A) 0.6 k/uL (0-1.0); Monocytes % (A) 6 %; Neutrophils # (A) 8.3 k/uL (1.3-7.7); Neutrophils % (A) 84 %; Platelet Count 178 k/uL (150-450); RDW 15.7 % (11.5-15.5)
[2024-07-08] MEDS: ONDANSETRON 4 MG/2 ML VIAL IVP STA (10:13)
[2024-07-08] MEDS: SODIUM CHLORIDE 0.9% 1,000 ML IV STA (10:13)
[2024-07-08 10:32] LABS: ALT 13 U/L (4-34); AST 19 U/L (14-36); African American GFR (CKD) 44 (>60 ml/min/1.73 sqM); Albumin 4.2 g/dL (3.5-5.0); Alkaline Phosphatase 92 U/L (38-126); Amylase 55 U/L (30-110); Anion Gap 13 mmol/L; Blood Urea Nitrogen 16 mg/dL (7-17); Calcium 9.4 mg/dL (8.4-10.2); Carbon Dioxide 24 mmol/L (22-30); Chloride 103 mmol/L (98-107); Glucose 171 mg/dL (74-99); Lipase 201 U/L (23-300); Non-African American GFR(CKD) 38 (>60 ml/min/1.73 sqM); Sodium 140 mmol/L (137-145); Total Bilirubin 0.8 mg/dL (0.2-1.3); Total Protein 7.5 g/dL (6.3-8.2)
--- NOTE | 2024-07-08 11:46 | CT ---
EXAMINATION TYPE: CT abdomen pelvis wo con CT DLP: 895.1 mGycm, Automated exposure control for dose reduction was used. DATE OF EXAM: 07/08/2024 11:32 AM COMPARISON: CTA abdomen and pelvis 02/11/2023, CT abdomen and pelvis 10/10/2022 CLINICAL INDICATION:Female, 79 years old with history of nausea/diarrhea; nausea/diarrhea TECHNIQUE: Standard CT of the abdomen and pelvis without IV or oral contrast. Lack of IV or oral co ntrast limits evaluation of solid and hollow organ viscera. Coronal and sagittal reformats were perfo rmed. FINDINGS: LOWER CHEST: Minimal posterior dependent subsegmental atelectasis is noted. ABDOMEN LIVER: Punctate calcified granuloma. Posterior right hepatic dome subcentimeter hypodense foci which are too small to characterize but likely represents a cyst. GALLBLADDER AND BILE DUCTS: The gallbladder is surgically absent. No biliary duct dilatation. PANCREAS: Unremarkable noncontrast appearance. SPLEEN: Stable thickening of both adrenal glands likely related to hyperplasia. ADRENAL GLANDS: Unremarkable. KIDNEYS AND URETERS: No evidence of hydronephrosis. Nonobstructive bilateral renal calculi. Atrophy of both kidneys with right greater than left. Renal cystic changes involving both kidneys with an exo phytic right lower pole 4.9 cm cyst. PELVIS BLADDER: Unremarkable REPRODUCTIVE: Unremarkable. ABDOMEN & PELVIS STOMACH AND BOWEL: Stomach and duodenum are unremarkable. Long segment circumferential wall thickenin g of the ascending colon without surrounding fat stranding. The appendix is not identified however no significant inflammatory changes within the right lower quadrant. No focal bowel wall thickening irina ntified. No evidence of bowel obstruction. PERITONEUM: No evidence of pneumoperitoneum or free fluid. VASCULATURE: Moderate atherosclerotic calcifications are present throughout the abdominal aorta and i ts branches. Stable infrarenal abdominal fusiform aortic aneurysm measuring up to 3.1 cm. Stable aor tic aneurysm dilatation of the aorta at the hiatus measuring 3.4 cm. Pelvic phleboliths. MUSCULOSKELETAL: No acute osseous abnormalities. Postsurgical changes of the lumbar spine with bilate ral pedicle screws and laminectomy changes involving L3-L5 with disc spacers. Multilevel degenerative disc disease. [facility] of the lower thoracic spine. LYMPH NODES: No gross evidence for lymphadenopathy. SOFT TISSUE/ABDOMINAL WALL: Unremarkable IMPRESSION: 1. Colitis of the ascending colon likely from an infectious or inflammatory process. 2. Stable aneurysmal dilatation of the aorta at the hiatus and infrarenal locations. 3. Nonobstructive bilateral renal calculi. [facility], , 07/08/2024 11:43 AM
[2024-07-08 13:39] VITALS: RESP 18
[2024-07-08] MEDS: METOCLOPRAMIDE 5 MG/ML 2 ML VIAL IVP STA (14:46)
[2024-07-08 14:56] VITALS: BP 139/91; PULSE 80
== END 2024-07-08 14:57 | disposition home or self-care (01) ==
LOC: EC 09:27
DX: K52.9 Noninfective gastroenteritis and colitis, unspecified (principal); Z87.891 Personal history of nicotine dependence; Z88.2 Allergy status to sulfonamides
CPT/HCPCS: 36415; 80053; 82150; 83605; 83690; 85025; 87324; 87636; 74176; 99284; 96374; 96375; 96361; J2765; J2405

== ENCOUNTER 2024-10-30 08:31 | Observation (INO) | payer MEDICARE ==
--- NOTE | 2024-10-30 09:08 | XR ---
EXAMINATION TYPE: XR chest 2V DATE OF EXAM: 10/30/2024 9:04 AM COMPARISON: Chest radiographs from 09/03/2022 TECHNIQUE: XR chest 2V Frontal and lateral views of the chest. CLINICAL INDICATION:Female, 79 years old with history of Chest Pain; FINDINGS: Lungs/Pleura: There is no evidence of pleural effusion, focal consolidation, or pneumothorax. Pulmonary vascularity: Unremarkable. Heart/mediastinum: Cardiomediastinal silhouette is unremarkable. Atherosclerotic calcifications are seen in the aorta. Musculoskeletal: Multiple level degenerative disc disease changes seen throughout the spine. IMPRESSION: No acute cardiopulmonary disease/process. [facility], , 10/30/2024 9:06 AM
[2024-10-30 09:09] LABS: Basophils # (A) 0.1 k/uL (0-0.2); Basophils % (A) 1 %; Eosinophils # (A) 0.2 k/uL (0-0.7); Eosinophils % (A) 2 %; HCT 45.1 % (34.0-46.0); HGB 13.9 gm/dL (11.4-16.0); Hypochromasia Slight; Lymphocytes # (A) 1.1 k/uL (1.0-4.8); Lymphocytes % (A) 7 %; MCH 29.6 pg (25.0-35.0); MCHC 30.8 g/dL (31.0-37.0); MCV 96.3 fL (80.0-100.0); Mean Platelet Volume 7.5; Monocytes # (A) 0.6 k/uL (0-1.0); Monocytes % (A) 4 %; Neutrophils # (A) 12.4 k/uL (1.3-7.7); Neutrophils % (A) 85 %; Platelet Count 223 k/uL (150-450); RBC 4.68 m/uL (3.80-5.40); RDW 15.3 % (11.5-15.5); WBC 14.5 k/uL (3.8-10.6)
[2024-10-30 09:17] LABS: ALT 21 U/L (4-34); AST 17 U/L (14-36); African American GFR (CKD) 31 (>60 ml/min/1.73 sqM); Albumin 3.8 g/dL (3.5-5.0); Alkaline Phosphatase 77 U/L (38-126); Anion Gap 9 mmol/L; Blood Urea Nitrogen 45 mg/dL (7-17); Carbon Dioxide 22 mmol/L (22-30); Chloride 110 mmol/L (98-107); Glucose 96 mg/dL (74-99); Magnesium 1.6 mg/dL (1.6-2.3); Non-African American GFR(CKD) 27 (>60 ml/min/1.73 sqM); Potassium 4.7 mmol/L (3.5-5.1); Sodium 141 mmol/L (137-145); Total Bilirubin 0.4 mg/dL (0.2-1.3); Total Protein 6.8 g/dL (6.3-8.2)
[2024-10-30 09:26] LABS: Prothrombin Time 10.7 sec (10.0-12.5)
--- NOTE | 2024-10-30 09:37 | ED ---
General Adult HPI - General Chief complaint: Chest Pain Stated complaint: chest pain Time Seen by Provider: 10/30/24 08:37 Source: patient, RN notes reviewed, old records reviewed Mode of arrival: EMS Limitations: no limitations - History of Present Illness Initial comments: 79-year-old female presenting with intermittent right-sided chest pain which is worse with deep inspiration, worse with movement. She states that this has been present for the past several months but became more severe over the past 24 hours. Pain is resolved currently. She denies difficulty breathing. Denies central radiating chest pain. No diaphoresis. No vomiting. No significant cough. History of COPD. - Related Data Home Medications Medication Instructions Recorded Confirmed Montelukast [Singulair] 10 mg PO DAILY 07/22/14 07/08/24 allopurinoL [Zyloprim] 100 mg PO BID 07/22/14 07/08/24 Aspirin [Adult Low Dose Aspirin EC] 81 mg PO HS 06/01/19 07/08/24 atenoloL [Tenormin] 50 mg PO DAILY 06/01/19 07/08/24 Gabapentin [Neurontin] 300 mg PO BID 05/14/22 07/08/24 Rosuvastatin [Crestor] 10 mg PO HS 05/14/22 07/08/24 Omeprazole 40 mg PO BID 10/10/22 07/08/24 Isosorbide Mononitrate ER [Imdur] 15 mg PO DAILY 07/05/23 07/08/24 Metoclopramide [Reglan] 5 mg PO DAILY 07/05/23 07/08/24 PARoxetine HCL [Paxil] 40 mg PO DAILY 07/05/23 07/08/24 Valsartan [Diovan] 80 mg PO HS 07/05/23 07/08/24 Acetaminophen-Codeine 300-30mg 1 tab PO Q6H PRN 07/08/24 07/08/24 [Tylenol w/codeine #3] Bismuth Subsalicylate 524 mg PO DAILY PRN 07/08/24 07/08/24 [Pepto-Bismol] Furosemide [Lasix] 20 mg PO DAILY 07/08/24 07/08/24 L.acidoph,Paracasei, B.lactis 1 cap PO DAILY 07/08/24 07/08/24 [Probiotic] PARoxetine [Paxil] 20 mg PO DAILY 07/08/24 07/08/24 Venlafaxine HCl [Effexor XR] 75 mg PO HS 07/08/24 07/08/24 Previous Rx's Medication Instructions Recorded Ondansetron Odt [Zofran Odt] 4 mg PO Q8HR PRN #10 tab 07/05/23 Amoxic-Pot Clav 875-125Mg 1 tab PO Q12HR #10 tab 07/08/24 [Augmentin 875-125] Ondansetron Odt [Zofran Odt] 4 mg PO Q8HR PRN #10 tab 07/08/24 Allergies Allergy/AdvReac Type Severity Reaction Status Date / Time Sulfa (Sulfonamide Allergy Rash/Hives Verified 07/08/24 11:24 Antibiotics) Review of Systems ROS Statement: Those systems with pertinent positive or pertinent negative responses have been documented in the HPI. ROS Other: All systems not noted in ROS Statement are negative. Past Medical History Past Medical History: Asthma, COPD, GERD/Reflux, Hyperlipidemia, Hypertension, Osteoarthritis (OA), Renal Disease Additional Past Medical History / Comment(s): Kidney stone. Gout bilateral feet. Urinary incontinence. RENAL DISEASE PER DR. ROSE CONSULTATION. History of Any Multi-Drug Resistant Organisms: None Reported Past Surgical History: Appendectomy, Back Surgery, Section, Cholecystectomy, Orthopedic Surgery Additional Past Surgical History / Comment(s): L/R LITHOTRIPSIES. LEFT ANKLE PLATE SCREW. LUMBAR EPIDURAL PAIN INJECTIONS. 6-8-16 laminectomy. CATARACT -BILATERAL WITH LENS IMPLANT. LASER TREATMENT OF R EYE D/T "FILM". Ramiro carpal tunnel. Past Anesthesia/Blood Transfusion Reactions: Motion Sickness Past Psychological History: Depression Smoking Status: Former smoker Past Alcohol Use History: Rare Past Drug Use History: Marijuana - Past Family History Mother Family Medical History: Myocardial Infarction ([place]) Additional Family Medical History / Comment(s): Mother of a [place] at the age of 75yrs. Father Family Medical History: CVA/TIA Additional Family Medical History / Comment(s): Father of a CVA at the age of 82 yrs. Sister(s) Family Medical History: Vascular Disorder Additional Family Medical History / Comment(s): Sister from an aortic dissection at the age of 56yrs. Brother(s) Family Medical History: Cancer Daughter(s) Family Medical History: No Reported History General Exam Limitations: no limitations General appearance: alert, in no apparent distress Head exam: Present: atraumatic, normocephalic Eye exam: Present: normal appearance, PERRL ENT exam: Present: normal exam Neck exam: Present: normal inspection. Absent: tenderness, meningismus Respiratory exam: Present: chest wall tenderness, decreased breath sounds. Absent: respiratory distress Cardiovascular Exam: Present: regular rate, normal rhythm GI/Abdominal exam: Present: soft. Absent: distended, tenderness Extremities exam: Present: normal inspection, normal capillary refill Neurological exam: Present: alert, oriented X3, CN II-XII intact. Absent: motor sensory deficit Psychiatric exam: Present: normal affect, normal mood Skin exam: Present: warm, dry, intact. Absent: cyanosis, diaphoretic Course Vital Signs 10/30/24 10/30/24 10/30/24 08:39 08:42 08:43 Temperature 98 F Pulse Rate 61 59 L Respiratory 20 16 20 Rate Blood Pressure 154/92 150/90 O2 Sat by Pulse 98 98 Oximetry 10/30/24 10:24 Temperature Pulse Rate 60 Respiratory 16 Rate Blood Pressure 160/118 O2 Sat by Pulse 98 Oximetry Medical Decision Making - Medical Decision Making Was pt. sent in by a medical professional or institution (ÁNGEL Jovel, DUMPER OPERATOR, urgent care, hospital, or half-way...) When possible be specific @ -No Did you speak to anyone other than the patient for history (EMS, parent, family, police, friend...)? What history was obtained from this source @ -No Did you review nursing and triage notes (agree or disagree)? Why? @ -I reviewed and agree with nursing and triage notes Were old charts reviewed (outside hosp., previous admission, EMS record, old EKG, old radiological studies, urgent care reports/EKG's, half-way records)? Report findings @ -No old charts were reviewed Differential Chest Pain: Stable Angina, Unstable Angina, STEMI, NSTEMI Aortic Dissection, Pneumothorax, Musculoskeletal, Esophageal Spasm GERD, Cholecystitis, Pancreatitis, Zoster, this is not meant to be an all-inclusive list. EKG interpreted by me (3pts min.). @ -Sinus rhythm rate of 61, IA interval 198, QRS duration 110, QTc 449 X-rays interpreted by me (1pt min.). @Chest x-ray negative for acute cardiopulmonary findings. CT interpreted by me (1pt min.). @ -None done U/S interpreted by me (1pt. min.). @ -None done What testing was considered but not performed or refused? (CT, X-rays, U/S, labs)? Why? @ -None What meds were considered but not given or refused? Why? @ -None Did you discuss the management of the patient with other professionals (professionals i.e. , PA, DUMPER OPERATOR, lab, RT, psych nurse, social services designee, supply person, teacher, chief commercial officer, case packer)? Give summary @ -EMH Was smoking cessation discussed for >3mins.? @ -No Was critical care preformed (if so, how long)? @ -No Were there social determinants of health that impacted care today? How? (Homelessness, low income, unemployed, alcoholism, drug addiction, transportation, low edu. Level, literacy, decrease access to med. care, detention, rehab)? @ -No Was there de-escalation of care discussed even if they declined (Discuss DNR or withdrawal of care, Hospice)? DNR status @ -No What co-morbidities impacted this encounter? (DM, HTN, Smoking, COPD, CAD, Cancer, CVA, ARF, Chemo, Hep., AIDS, mental health diagnosis, sleep apnea, morbid obesity)? @ -Chronic kidney disease Was patient admitted / discharged? Hospital course, mention meds given and route, prescriptions, significant lab abnormalities, going to OR and other pertinent info. @ -79-year-old female with pleuritic right-sided chest pain, worse with deep inspiration, worse with movement. EKG is sinus rhythm without ischemic changes. Chest x-ray is clear. Patient does have a negative troponin and a positive D- dimer. She also has worsening chronic kidney disease. Given the reduced GFR I will order VQ scan to rule out pulmonary embolism. The patient will be placed in observation, admitted to internal medicine, serial cardiac enzymes have been ordered although I have a low suspicion for cardiac cause of chest pain. Undiagnosed new problem with uncertain prognosis? @ -No Drug Therapy requiring intensive monitoring for toxicity (Heparin, Nitro, I nsulin, Cardizem)? @ -No Were any procedures done? @ -No Diagnosis/symptom? @Pleuritic chest pain, positive D-dimer, chronic kidney disease Acute, or Chronic, or Acute on Chronic? @ -[Acute Uncomplicated (without systemic symptoms) or Complicated (systemic symptoms)? @ -Default Side effects of treatment? @ -No Exacerbation, Progression, or Severe Exacerbation? @ -No Poses a threat to life or bodily function? How? (Chest pain, [place], [place], pneumonia, PE, COPD, DKA, ARF, appy, cholecystitis, CVA, Diverticulitis, Homicidal, Suicidal, threat to staff... and all critical care pts) @Yes, pulmonary embolism - Lab Data Result diagrams: 10/30/24 08:43 10/30/24 08:43 Lab Results 10/30/24 10/30/24 10/30/24 Range/Units 08:43 08:43 08:43 WBC 14.5 H (3.8-10.6) k/uL RBC 4.68 (3.80-5.40) m/uL Hgb 13.9 (11.4-16.0) gm/dL Hct 45.1 (34.0-46.0) % MCV 96.3 (80.0-100.0) fL MCH 29.6 (25.0-35.0) pg MCHC 30.8 L (31.0-37.0) g/dL RDW 15.3 (11.5-15.5) % Plt Count 223 (150-450) k/uL MPV 7.5 Neutrophils % 85 % Lymphocytes % 7 % Monocytes % 4 % Eosinophils % 2 % Basophils % 1 % Neutrophils # 12.4 H (1.3-7.7) k/uL Lymphocytes # 1.1 (1.0-4.8) k/uL Monocytes # 0.6 (0-1.0) k/uL Eosinophils # 0.2 (0-0.7) k/uL Basophils # 0.1 (0-0.2) k/uL Hypochromasia Slight PT 10.7 (10.0-12.5) sec INR 1.0 (<1.2) APTT 20.5 L (22.0-30.0) sec D-Dimer 1.02 H (<0.60) mg/L FEU Sodium 141 (137-145) mmol/L Potassium 4.7 (3.5-5.1) mmol/L Chloride 110 H (98-107) mmol/L Carbon Dioxide 22 (22-30) mmol/L Anion Gap 9 mmol/L BUN 45 H (7-17) mg/dL Creatinine 1.81 H (0.52-1.04) mg/dL Est GFR (CKD-EPI)AfAm 31 (>60 ml/min/1.73 sqM) Est GFR (CKD-EPI)NonAf 27 (>60 ml/min/1.73 sqM) Glucose 96 (74-99) mg/dL Calcium 9.0 (8.4-10.2) mg/dL Magnesium 1.6 (1.6-2.3) mg/dL Total Bilirubin 0.4 (0.2-1.3) mg/dL AST 17 (14-36) U/L ALT 21 (4-34) U/L Alkaline Phosphatase 77 (38-126) U/L Troponin I (0.000-0.034) ng/mL Total Protein 6.8 (6.3-8.2) g/dL Albumin 3.8 (3.5-5.0) g/dL 10/30/24 Range/Units 08:43 WBC (3.8-10.6) k/uL RBC (3.80-5.40) m/uL Hgb (11.4-16.0) gm/dL Hct (34.0-46.0) % MCV (80.0-100.0) fL MCH (25.0-35.0) pg MCHC (31.0-37.0) g/dL RDW (11.5-15.5) % Plt Count (150-450) k/uL MPV Neutrophils % % Lymphocytes % % Monocytes % % Eosinophils % % Basophils % % Neutrophils # (1.3-7.7) k/uL Lymphocytes # (1.0-4.8) k/uL Monocytes # (0-1.0) k/uL Eosinophils # (0-0.7) k/uL Basophils # (0-0.2) k/uL Hypochromasia PT (10.0-12.5) sec INR (<1.2) APTT (22.0-30.0) sec D-Dimer (<0.60) mg/L FEU Sodium (137-145) mmol/L Potassium (3.5-5.1) mmol/L Chloride (98-107) mmol/L Carbon Dioxide (22-30) mmol/L Anion Gap mmol/L BUN (7-17) mg/dL Creatinine (0.52-1.04) mg/dL Est GFR (CKD-EPI)AfAm (>60 ml/min/1.73 sqM) Est GFR (CKD-EPI)NonAf (>60 ml/min/1.73 sqM) Glucose (74-99) mg/dL Calcium (8.4-10.2) mg/dL Magnesium (1.6-2.3) mg/dL Total Bilirubin (0.2-1.3) mg/dL AST (14-36) U/L ALT (4-34) U/L Alkaline Phosphatase (38-126) U/L Troponin I <0.012 (0.000-0.034) ng/mL Total Protein (6.3-8.2) g/dL Albumin (3.5-5.0) g/dL Disposition Clinical Impression: Atypical chest pain Disposition: ADMITTED IP TO THIS [facility] Condition: Stable Is patient prescribed a controlled substance at d/c from ED?: No Referrals: James Rose MD [Primary Care Provider] - 1-2 days Time of Disposition: 10:49
[2024-10-30 09:53] LABS: Partial Thromboplastin Time 20.5 sec (22.0-30.0)
[2024-10-30] MEDS: SODIUM CHLORIDE 0.9% 1,000 ML IV ONE (10:22)
[2024-10-30] MEDS: HYDROmorphone 0.5 MG/0.5 ML SYRINGE IVP STA (10:29)
[2024-10-30] MEDS ORDERED: HYDROmorphone 0.5 MG/0.5 ML SYRINGE IVP PRN (10:41)
[2024-10-30] MEDS ORDERED: NALOXONE 0.4 MG/ML 1 ML VIAL IV PRN (10:41)
[2024-10-30] MEDS: SODIUM CHLORIDE 0.9% 1,000 ML IV SCH (12:27)
[2024-10-30] MEDS ORDERED: METOCLOPRAMIDE 10 MG TAB PO PRN (14:39)
--- NOTE | 2024-10-30 14:48 | P.HPIM ---
History of Present Illness H&P Date: 10/30/24 History of present illness: 79-year-old female with past medical history significant for CKD, renal stone, hypertension, hyperlipidemia, COPD, asthma, who presented to ED ED with right- sided lower chest pain right upper quadrant pain worse with deep inspiration and movements. Patient stated that she had right-sided chest pain going on for about 2 months, but it has recently gotten more severe over the last 24 hours. Patient stated that she recently was given steroids on Saturday for this pain wi thout much improvement. Patient denied any fever, chills, productive cough, shortness of breath. Patient denied any left-sided chest pain, palpitations, headache, sore throat, nausea vomiting diarrhea constipation abdominal pain dysuria urgency frequency weakness or numbness to extremities. In the ED patient was afebrile, heart rate 61, respiratory rate 20, blood pressure 154/92, saturating 98% on 2 L. WBCs 14.5, hemoglobin 13.9, platelet 223. Absolute neutrophils 12.4. Sodium 141, potassium 4.7, chloride 110, CO2 22, BUN 45, creatinine 0.81. LFTs unremarkable. Troponin negative x 2. Chest x-ray negative for acute process. D-dimer was elevated 1.02, VQ scan pending. Assessment and plan: Right-sided chest pain: Musculoskeletal History of renal stone: Presented with right-sided chest pain, right upper quadrant pain, worse with breathing and movements. Chest x-ray negative for acute process. Troponin negative x 2 Stress testing July 2023 was negative. Elevated D-dimer, VQ scan pending. Pain controlTylenol, lidocaine patch. KUB Ultrasound renal CHAYITO on CKD: History of CKD, baseline creatinine around 1.3 Prerenal secondary to hypovolemia Gentle IV fluids Hold Lasix, losartan Avoid nephrotoxin Monitor renal function Ultrasound renal Check UA Hypertension: Hyperlipidemia: Continue statin Hold valsartan and Lasix Continue atenolol. DVT prophylaxis Subcutaneous heparin Monitor vital signs and labs Labs and medication were reviewed. Continue same treatment. Further recommendations as per clinical course of the patient PHYSICAL EXAMINATION: GENERAL: The patient is A&O x3, NAD HEENT: EOMI, Sclerae anicteric, Moist Mucous membranes Neck: Supple, Non tender, No JVD PULMONARY: Equal breath souds B/L, No wheezing, No crackles. Right lower chest tender. CARDIOVASCULAR: S1, S2 present. No murmurs, rubs, or gallops. ABDOMEN: Soft, nontender, nondistended, normoactive bowel sounds. No guarding or rebound tenderness. MUSCULOSKELETAL: No edema, No cyanosis. No clubbing. Normal ROM. Intact peripheral pulses. NEUROLOGICAL: CN 2-12 grossly intact. No FND REVIEW OF SYSTEMS: CONSTITUTIONAL: No fever, no malaise, no fatigue. HEENT: No recent visual problems or hearing problems. Denied any sore throat. CARDIOVASCULAR: orthopnea, PND, no palpitations, no syncope. Right lower chest pain. PULMONARY: No shortness of breath, no cough, no hemoptysis. GASTROINTESTINAL: No diarrhea, no nausea, no vomiting, no abdominal pain. NEUROLOGICAL: No headaches, no weakness, no numbness. HEMATOLOGICAL: Denies any bleeding or petechiae. GENITOURINARY: Denies any burning micturition, frequency, or urgency. MUSCULOSKELETAL/RHEUMATOLOGICAL: Denies any joint pain, swelling, or any muscle pain. ENDOCRINE: Denies any polyuria or polydipsia. The rest of the 14-point review of systems is negative. Dictation was produced using [employer] dictation software. please excuse any grammatical, word or spelling errors. Past Medical History Past Medical History: Asthma, COPD, GERD/Reflux, Hyperlipidemia, Hypertension, Osteoarthritis (OA), Renal Disease Additional Past Medical History / Comment(s): Kidney stone. Gout bilateral feet. Urinary incontinence. RENAL DISEASE PER DR. GONSALVES CONSULTATION. History of Any Multi-Drug Resistant Organisms: None Reported Past Surgical History: Appendectomy, Back Surgery, Section, Cholecystectomy, Orthopedic Surgery Additional Past Surgical History / Comment(s): L/R LITHOTRIPSIES. LEFT ANKLE PLATE SCREW. LUMBAR EPIDURAL PAIN INJECTIONS. 6-8-16 laminectomy. CATARACT -BILATERAL WITH LENS IMPLANT. LASER TREATMENT OF R EYE D/T "FILM". Ramiro carpal tunnel. Past Anesthesia/Blood Transfusion Reactions: Motion Sickness Past Psychological History: Depression Smoking Status: Former smoker Past Alcohol Use History: Rare Past Drug Use History: Marijuana - Past Family History Mother Family Medical History: Myocardial Infarction ([place]) Additional Family Medical History / Comment(s): Mother of a [place] at the age of 75yrs. Father Family Medical History: CVA/TIA Additional Family Medical History / Comment(s): Father of a CVA at the age of 82 yrs. Sister(s) Family Medical History: Vascular Disorder Additional Family Medical History / Comment(s): Sister from an aortic dissection at the age of 56yrs. Brother(s) Family Medical History: Cancer Daughter(s) Family Medical History: No Reported History Medications and Allergies Home Medications Medication Instructions Recorded Confirmed Type Montelukast [Singulair] 10 mg PO DAILY 07/22/14 10/30/24 History allopurinoL [Zyloprim] 100 mg PO BID 07/22/14 10/30/24 History Aspirin [Adult Low Dose Aspirin EC] 81 mg PO HS 06/01/19 10/30/24 History atenoloL [Tenormin] 50 mg PO DAILY 06/01/19 10/30/24 History Gabapentin [Neurontin] 300 mg PO BID 05/14/22 10/30/24 History Rosuvastatin [Crestor] 10 mg PO HS 05/14/22 10/30/24 History Omeprazole 40 mg PO BID 10/10/22 10/30/24 History Isosorbide Mononitrate ER [Imdur] 30 mg PO HS 07/05/23 10/30/24 History Metoclopramide [Reglan] 10 mg PO TID PRN 07/05/23 10/30/24 History Valsartan [Diovan] 80 mg PO HS 07/05/23 10/30/24 History Acetaminophen-Codeine 300-30mg 1 tab PO Q6H PRN 07/08/24 10/30/24 History [Tylenol w/codeine #3] Furosemide [Lasix] 20 mg PO DAILY 07/08/24 10/30/24 History PARoxetine [Paxil] 20 mg PO DAILY 07/08/24 10/30/24 History Venlafaxine HCl [Effexor XR] 75 mg PO HS 07/08/24 10/30/24 History methylPREDNISolone Dose Pack See Taper PO DIRECTED 10/30/24 10/30/24 History [Medrol Dose Pack] Allergies Allergy/AdvReac Type Severity Reaction Status Date / Time Sulfa (Sulfonamide Allergy Rash/Hives Verified 10/30/24 11:44 Antibiotics) Physical Exam Vitals: Vital Signs Temp Pulse Resp BP Pulse Ox 10/30/24 12:00 70 20 130/98 10/30/24 11:00 78 20 130/60 98 10/30/24 10:24 60 16 160/118 98 10/30/24 08:43 20 10/30/24 08:42 59 L 16 150/90 98 10/30/24 08:39 98 F 61 20 154/92 98 Intake and Output 10/29/24 10/30/24 10/30/24 22:59 06:59 14:59 Other: Weight 88.451 kg Results CBC & Chem 7: 10/30/24 08:43 10/30/24 08:43 Labs: Abnormal Lab Results - Last 24 Hours (Table) 10/30/24 10/30/24 10/30/24 Range/Units 08:43 08:43 08:43 WBC 14.5 H (3.8-10.6) k/uL MCHC 30.8 L (31.0-37.0) g/dL Neutrophils # 12.4 H (1.3-7.7) k/uL APTT 20.5 L (22.0-30.0) sec D-Dimer 1.02 H (<0.60) mg/L FEU Chloride 110 H (98-107) mmol/L BUN 45 H (7-17) mg/dL Creatinine 1.81 H (0.52-1.04) mg/dL
--- NOTE | 2024-10-30 15:36 | NM ---
EXAMINATION TYPE: NM pul vent and perfuse DATE OF EXAM: 10/30/2024 CLINICAL INDICATION: Female, 79 years old with history of Pleuritic chest pain positive D-dimer; COMPARISON: Chest radiograph 10/30/2024 TECHNIQUE: Utilizing inhalation of 41.5 mCi Tc 99m DTPA aerosol and intravenous injection of 5.17 mC i of Tc 99m MAA, ventilation and perfusion images are acquired post injection in multiple projections . FINDINGS: Normal radiotracer distribution is noted in the lungs. There is no evidence of mismatched defects. IMPRESSION: No convincing evidence for pulmonary embolism. [facility], , 10/30/2024 3:34 PM
[2024-10-30] MEDS: LIDOCAINE 4% PATCH TOPICAL SCH (15:51)
[2024-10-30] MEDS: PARoxetine 20 MG TAB PO SCH (15:51)
[2024-10-30] MEDS: atenoloL 50 MG TAB PO SCH (15:51)
[2024-10-30] MEDS: MONTELUKAST 10 MG TAB PO SCH (15:52)
--- NOTE | 2024-10-30 16:26 | US ---
EXAMINATION TYPE: US renals and bladder DATE OF EXAM: 10/30/2024 COMPARISON: US 2022, CT abdomen and pelvis 07/08/2024 CLINICAL INDICATION: Female, 79 years old with history of CHAYITO; TECHNIQUE: Grayscale imaging of the bilateral kidneys and urinary bladder: FINDINGS: EXAM MEASUREMENTS: Right Kidney: 9.9 x 4.8 x 4.8 cm Left Kidney: 9.4 x 4.7 x 5.1 cm Right Kidney: cortical thinning, 1.0cm stone mid pole, 4.6cm cyst inferior pole Left Kidney: 1.8cm hypoechoic area superior pole Bladder: wnl Bilateral Jets seen: no There is no evidence for hydronephrosis at this point in time. No left renal calculi. Nonobstructing right mid kidney calculus. Simple cyst within the inferior pole of the right kidney. Simple cysts id entified within the superior pole of the left kidney. Cortical medullary differentiation is maintaine d bilaterally. Cortical thinning of the right kidney. No masses are identified. The urinary bladder is anechoic. IMPRESSION: 1. No hydronephrosis. 2. Nonobstructing right renal calculus. 3. Findings of chronic medical renal disease involving the right kidney. 4. Simple bilateral renal cysts. [facility], , 10/30/2024 4:24 PM
[2024-10-30 18:20] LABS: Appearance,Urine Clear (Clear); Bilirubin,Urine Negative (Negative); Blood,Urine Negative (Negative); Color,Urine Colorless; Glucose,Urine (UA) 1+ (Negative); Ketones,Urine Negative (Negative); Leukocyte Esterase,Urine Negative (Negative); Nitrite,Urine Negative (Negative); PH, Urine 5.5 (5.0-8.0); Protein,Urine Trace (Negative); Specific Gravity,Urine 1.015 (1.001-1.035); Urobilinogen,Urine <2.0 mg/dL (<2.0)
[2024-10-30] MEDS: allopurinoL 100 MG TAB PO SCH (20:17)
[2024-10-30] MEDS: ISOSORBIDE MONONITRATE ER 30 MG TAB.ER.24H PO SCH (20:17)
[2024-10-30] MEDS: HEPARIN SODIUM,PORCINE 5,000 UNIT/ML 1 ML VIAL SQ SCH (20:17)
[2024-10-30] MEDS: ASPIRIN 81 MG PO SCH (20:17)
[2024-10-30] MEDS: PANTOPRAZOLE 40 MG TABLET PO SCH (20:17)
[2024-10-30] MEDS: ATORVASTATIN 20 MG TAB PO SCH (20:17)
[2024-10-30] MEDS: GABAPENTIN 300 MG CAP PO SCH (20:17)
[2024-10-30] MEDS: VENLAFAXINE HCL ER 75 MG CAP PO SCH (20:55)
[2024-10-31 01:52] VITALS: TEMP 97.7
[2024-10-31 07:39] VITALS: BP 169/82; PULSE 59; RESP 15
[2024-10-31] MEDS: ACETAMINOPHEN TAB 325 MG TAB PO PRN (08:32)
[2024-10-31 09:44] LABS: Basophils # (A) 0.11 X 10*3/uL (0.00-0.10); Basophils % (A) 0.9 %; Eosinophils % (A) 2.6 %; HCT 39.4 % (37.2-46.3); HGB 12.2 g/dL (12.0-15.0); Lymphocytes # (A) 1.69 X 10*3/uL (0.90-5.00); Lymphocytes % (A) 14.5 %; Mean Platelet Volume 10.7 FL (9.5-12.2); Monocytes % (A) 8.6 %; NRBC Per 100 WBC 0 X 10*3/uL (0.00-0.01); Neutrophils # (A) 8.37 X 10*3/uL (1.80-7.70); Neutrophils % (A) 72.1 %; Platelet Count 190 X 10*3/uL (140-440); RBC 4.06 X 10*6/uL (4.10-5.20); RDW 15.4 % (11.5-14.5); WBC 11.62 X 10*3/uL (4.50-10.00)
[2024-10-31 11:16] LABS: BUN/Creat Ratio 22.94 Ratio (12.00-20.00); Blood Urea Nitrogen 36.7 mg/dL (9.0-27.0); Carbon Dioxide 23.6 mmol/L (21.6-31.8); Chloride 112 mmol/L (96-109); Glucose 80 mg/dL (70-110); Potassium 5.2 mmol/L (3.5-5.5); Sodium 144 mmol/L (135-145)
--- NOTE | 2024-10-31 13:57 | P.DS ---
Providers Date of admission: 10/30/24 10:42 Expected date of discharge: 10/31/24 Attending physician: Dayana Jennings Primary care physician: [facility] Course: Discharge diagnoses; Right-sided chest pain: Musculoskeletal History of renal stone: Elevated D-dimer, VQ scan was not significant for PE Pain controlTylenol, lidocaine patch. CHAYITO on CKD: History of CKD, baseline creatinine around 1.3 Prerenal secondary to hypovolemia Renal function improved, resume home meds Hypertension: Hyperlipidemia: Continue statin Continue valsartan and Lasix Continue atenolol. Hospital course; 79-year-old female with past medical history significant for CKD, renal stone, hypertension, hyperlipidemia, COPD, asthma, who presented to ED ED with right- sided lower chest pain right upper quadrant pain worse with deep inspiration and movements. Patient stated that she had right-sided chest pain going on for about 2 months, but it has recently gotten more severe over the last 24 hours. Patient stated that she recently was given steroids on Saturday for this pain without much improvement. Patient denied any fever, chills, productive cough, shortness of breath. Patient denied any left-sided chest pain, palpitations, headache, sore throat, nausea vomiting diarrhea constipation abdominal pain dysuria urgency frequency weakness or numbness to extremities. In the ED patient was afebrile, heart rate 61, respiratory rate 20, blood pressure 154/92, saturating 98% on 2 L. WBCs 14.5, hemoglobin 13.9, platelet 223. Absolute neutrophils 12.4. Sodium 141, potassium 4.7, chloride 110, CO2 22, BUN 45, creatinine 0.81. LFTs unremarkable. Troponin negative x 2. Chest x-ray negative for acute process. D-dimer was elevated 1.02, VQ scan pending. 10/31. Patient seen examined. VQ scan was negative for PE. Troponins remain flat. Patient will be discharged to follow-up outpatient with PCP PHYSICAL EXAMINATION: GENERAL: The patient is alert and oriented x3, not in any acute distress. Well developed, well nourished. HEENT: Pupils are round and equally reacting to light. EOMI. No scleral icterus. No conjunctival pallor. Normocephalic, atraumatic. No pharyngeal erythema. No thyromegaly. CARDIOVASCULAR: S1 and S2 present. No murmurs, rubs, or gallops. PULMONARY: Chest is clear to auscultation, no wheezing or crackles. ABDOMEN: Soft, nontender, nondistended, normoactive bowel sounds. No palpable organomegaly. MUSCULOSKELETAL: No joint swelling or deformity. EXTREMITIES: No cyanosis, clubbing, or pedal edema. NEUROLOGICAL: Gross neurological examination did not reveal any focal deficits. SKIN: No rashes. Dictation was produced using [employer] dictation software. please excuse any grammatical, word or spelling errors. Patient Condition at Discharge: Stable Plan - Discharge Summary Discharge Rx Participant: No New Discharge Prescriptions: Continue Montelukast [Singulair] 10 mg PO DAILY allopurinoL [Zyloprim] 100 mg PO BID atenoloL [Tenormin] 50 mg PO DAILY Aspirin [Adult Low Dose Aspirin EC] 81 mg PO HS Omeprazole 40 mg PO BID Gabapentin [Neurontin] 300 mg PO BID Rosuvastatin [Crestor] 10 mg PO HS Metoclopramide [Reglan] 10 mg PO TID PRN PRN Reason: Nausea Valsartan [Diovan] 80 mg PO HS Isosorbide Mononitrate ER [Imdur] 30 mg PO HS Venlafaxine HCl [Effexor XR] 75 mg PO HS PARoxetine [Paxil] 20 mg PO DAILY Furosemide [Lasix] 20 mg PO DAILY Acetaminophen-Codeine 300-30mg [Tylenol w/codeine #3] 1 tab PO Q6H PRN PRN Reason: Pain methylPREDNISolone Dose Pack [Medrol Dose Pack] See Taper PO DIRECTED Discharge Medication List Montelukast [Singulair] 10 mg PO DAILY 07/22/14 [History] allopurinoL [Zyloprim] 100 mg PO BID 07/22/14 [History] Aspirin [Adult Low Dose Aspirin EC] 81 mg PO HS 06/01/19 [History] atenoloL [Tenormin] 50 mg PO DAILY 06/01/19 [History] Gabapentin [Neurontin] 300 mg PO BID 05/14/22 [History] Rosuvastatin [Crestor] 10 mg PO HS 05/14/22 [History] Omeprazole 40 mg PO BID 10/10/22 [History] Isosorbide Mononitrate ER [Imdur] 30 mg PO HS 07/05/23 [History] Metoclopramide [Reglan] 10 mg PO TID PRN 07/05/23 [History] Valsartan [Diovan] 80 mg PO HS 07/05/23 [History] Acetaminophen-Codeine 300-30mg [Tylenol w/codeine #3] 1 tab PO Q6H PRN 07/08/24 [History] Furosemide [Lasix] 20 mg PO DAILY 07/08/24 [History] PARoxetine [Paxil] 20 mg PO DAILY 07/08/24 [History] Venlafaxine HCl [Effexor XR] 75 mg PO HS 07/08/24 [History] methylPREDNISolone Dose Pack [Medrol Dose Pack] See Taper PO DIRECTED 10/30/24 [History] Follow up Appointment(s)/Referral(s): James Rose MD [Primary Care Provider] - 1-2 days
== END 2024-10-31 14:55 | disposition home or self-care (01) ==
LOC: EC 08:31 → 6NMEDSUR 10:42
PROVIDERS: ADMIT Hospitalist; ATTEND Hospitalist
DX: R07.89 Other chest pain (principal); R10.11 Right upper quadrant pain; E78.5 Hyperlipidemia, unspecified; J44.89 Other specified chronic obstructive pulmonary disease; K21.9 Gastro-esophageal reflux disease without esophagitis; N17.9 Acute kidney failure, unspecified; I12.9 Hypertensive chronic kidney disease with stage 1 through stage 4 chronic kidney disease, or unspecified chronic kidney disease; N18.9 Chronic kidney disease, unspecified; E86.1 Hypovolemia; R79.89 Other specified abnormal findings of blood chemistry; F32.A Depression, unspecified; Z87.442 Personal history of urinary calculi; Z87.891 Personal history of nicotine dependence; Z79.82 Long term (current) use of aspirin; Z79.899 Other long term (current) drug therapy; Z88.2 Allergy status to sulfonamides
CPT/HCPCS: 96372; 96374; 99285; 36415; 93005; 85379; 80053; 80048; 83735; 84484; 85025 ×2; 85610; 85730; 81003; 71046; 76770; 78582; G0378 ×2; A9540; A9567; J1644 ×2; J1171

== ENCOUNTER → 2024-11-13 | Outpatient (CLI) | payer MEDICARE ==
--- NOTE | 2024-11-13 15:56 | US ---
EXAMINATION TYPE: US carotid duplex BILAT DATE OF EXAM: 11/13/2024 COMPARISON: NONE CLINICAL INDICATION: Female, 79 years old with history of I65.23 OCCLUSION AND STENOSIS OF BILATERAL CAROTID; stenosis Additional History: I65.- Occlusion/stenosis of specified precerebral artery, specified laterality TECHNIQUE: Grayscale, color Doppler and spectral Doppler evaluation of the bilateral carotid systems and vertebral arteries. Indirect Doppler criteria was utilized. FINDINGS: EXAM MEASUREMENTS: RIGHT: Peak Systolic Velocity (PSV) cm/sec ----- Right CCA: 57.2 ----- Right ICA: 56.8 ----- Right ECA: 40.3 ICA/CCA ratio: 1.0 RIGHT: End Diastole cm/sec ----- Right CCA: 17.1 ----- Right ICA: 24.9 ----- Right ECA: 7.5 LEFT: Peak Systolic Velocity (PSV) cm/sec ----- Left CCA: 42.9 ----- Left ICA: 78.4 ----- Left ECA: 37.7 ICA/CCA ratio: 1.8 LEFT: End Diastole cm/sec ----- Left CCA: 20.1 ----- Left ICA: 32.2 ----- Left ECA: 9.2 VERTEBRALS (direction of flow): Right Vertebral: Antegrade Left Vertebral: Antegrade Rhythm: Normal MEN'S [employer]ACH NOTES: plaque seen in bilateral bulbs. Left ICA is very tortuous. Color Doppler imaging shows patency with blood flow throughout the carotid artery. Spectral waveforms are within normal limits. IMPRESSION: No evidence for hemodynamically significant stenosis. Criteria for Assigning % of Stenosis / Diameter reduction (Estimation based on the indirect measurements of the internal carotid artery velocities (ICA PSV). 1. Normal (no stenosis)=ICA PSV < 125 cm/s: ratio < 2.0: ICA EDV<40 cm/s. 2. Less than 50% stenosis=ICA PSV < 125 cm/s: ratio < 2.0: ICA EDV<40 cm/s. 3. 50 to 69% stenosis=ICA PSV of 125 to 230 cm/s: ration 2.0 ? 4.0: ICA EDV 40-100 cm/s. 4. Greater than 70% stenosis to near occlusion= ICA PSV > 230 cm/s: ratio > 4.0: ICA EDV > 100 cm/s. 5. Near occlusion= ICA PSV velocities may be low or undetectable: variable ratio and ICA EDV. 6. Total occlusion=unable to detect flow. [facility], , 11/13/2024 3:53 PM
== END | disposition home or self-care (01) ==
LOC: RADUSWWP 15:18
PROVIDERS: ATTEND Internal Medicine Geriatric Medicine
DX: I65.23 Occlusion and stenosis of bilateral carotid arteries (principal)
CPT/HCPCS: 93880